=== PATIENT | male | born 1970 | race Caucasian/White ===

== ENCOUNTER 2017-04-29 15:43 | Inpatient (IN) | payer OTHER ==
[~2017-04-29] VITALS: Ht 190.5 cm; Wt 100.0 kg
[2017-04-29 15:44] VITALS: BP 130/84; PULSE 126; RESP 20; TEMP 100.7; O2SAT 97
--- NOTE | 2017-04-29 16:06 | PD ---
HPI . right foot infection Chief Complaint: Skin Problem Time Seen by Provider: 16:06 Travel History International Travel<30 days: No Contact w/Intl Traveler<30days: No Traveled to known affect area: No History of Present Illness HPI 46-year-old male with history of diabetes, hypertension, hyperlipidemia, CAD, history of heart attack in 2010 with CABG and 4 bouts of osteomyelitis in the past here with complaints of worsening foot infection. Patient tells me that he has had frequent bouts of osteomyelitis most recently December 2016. He says that all of a sudden yesterday he had a wound on his right lateral foot that developed. He tells me that this is new and has not been ongoing. Also has a chronic right foot wound that he has been following up with his primary care provider who is Dr. Whalen in [place]. There is a wound on his right lateral foot distally that measures 3 cm x 4 cm with drainage and foul odor. There is also a wound in the mid foot measuring 3 x 1.5 cm. Patient recently moved here 5 weeks ago and has been trying to resume his care. He admits to a fever today, but denies any chills. He has no other complaints. He is accompanied by his significant other. PFSH Past Medical History Cardiovascular Problems: Yes High Cholesterol: Yes Diabetes: Yes Hypertension: Yes Social History Alcohol Use: No Tobacco Use: No Substance Use: No Allergies-Medications (Allergen,Severity, Reaction): Coded Allergies: No Known Allergies (Unverified , 04/29/17) Reported Meds & Prescriptions Reported Meds & Active Scripts Active Reported Oxycodone (Oxycodone HCl) 10 Mg Tab 10 Mg PO Q6H PRN Multi Vitamin Daily (Multiple Vitamin) 1 Tab Tab 1 Tab PO DAILY Fish Oil 1000 mg ([place]-3 Fatty Acids) 1 Cap Cap 1,000 Mg PO DAILY Gabapentin 300 Mg Cap 600 Mg PO 2-3 TIMES A DAY Fluoxetine (Fluoxetine HCl) 40 Mg Cap 40 Cap PO DAILY Metoprolol Tartrate 25 Mg Tab 25 Mg PO BID Pravastatin 40 Mg Tab 40 Mg PO DAILY Lisinopril 2.5 Mg Tab 2.5 Mg PO DAILY Apidra Inj (Insulin Glulisine Inj) 1,000 Unit/10 Ml Vial 10 Units SQ DIRECTED SLIDING SCALE Lantus Inj (Insulin Glargine) 100 Unit/Ml Inj 45 Units SQ DAILY Metformin (Metformin HCl) 1,000 Mg Tab 1,000 Mg PO BID With meals Aspirin Adult Low Strength (Aspirin) 81 Mg Tabdr 81 Mg PO DAILY Review of Systems General / Constitutional: No: Fever Eyes: No: Visual changes HENT: No: Headaches Cardiovascular: No: Chest Pain or Discomfort Respiratory: No: Shortness of Breath Gastrointestinal: No: Abdominal Pain Genitourinary: No: Dysuria Musculoskeletal: No: Pain Skin: Positive Other (right foot wound ), No Rash Neurologic: No: Weakness Psychiatric: No: Depression Endocrine: No: Polydipsia Hematologic/Lymphatic: No: Easy Bruising Physical Exam Narrative GENERAL: AAO x 3, no acute distress, Well-nourished, well-developed patient. SKIN: Warm and dry. No visible rashes or bruising. right lateral foot distally 3 x 4 cm well circumscribed wound with + purulence, foul odor, mid foot with 3 cm x 1.5 cm wound healing, without drainage HEAD: Normocephalic and atraumatic. EYES: No scleral icterus. No injection or drainage. EOM intact, PERRLA ENT: No nasal drainage noted. Mucous membranes pink. Airway patent. NECK: Supple, trachea midline. No JVD. CARDIOVASCULAR: Regular rate and rhythm without murmurs, gallops, or rubs. RESPIRATORY: Breath sounds equal bilaterally. No accessory muscle use. No rhonchi or rales. GASTROINTESTINAL: Abdomen soft, non-tender, nondistended. EXTREMITIES: No cyanosis. Right LE + edema +1, tender to touch, left leg WNL, BACK: Nontender without obvious deformity. No CVA tenderness. 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 Data Data Last Documented VS Vital Signs Date Time Temp Pulse Resp B/P Pulse Ox O2 Delivery O2 Flow Rate FiO2 04/29/17 17:12 111 16 125/78 96 Room Air 04/29/17 15:44 100.7 Orders Electrocardiogram (04/29/17 16:13) Complete Blood Count With Diff (04/29/17 16:13) Comprehensive Metabolic Panel (04/29/17 16:13) Lactic Acid Sepsis Protocol (04/29/17 16:13) Urinalysis - C+S If Indicated (04/29/17 16:13) Blood Culture (04/29/17 16:13) Chest, Single Ap (04/29/17 16:13) Blood Glucose (04/29/17 16:13) Ecg Monitoring (04/29/17 16:13) Iv Access Insert/Monitor (04/29/17 16:13) Oximetry (04/29/17 16:13) Oxygen Administration (04/29/17 16:13) Foot, Complete ([id number]) (04/29/17 16:13) Us Leg Venous Doppler (04/29/17 16:13) Sodium Chlor 0.9% 1000 Ml Inj (Ns 1000 M (04/29/17 18:15) Insulin Human Nph Inj (Novolin N Inj) (04/29/17 18:30) Vancomycin Inj (Vancomycin Inj) (04/29/17 19:00) Piperacil-Tazo 3.375 Gm Premix (Zosyn 3. (04/29/17 19:00) Admit Order (Ed Use Only) (04/29/17 19:36) Labs Laboratory Tests Test 04/29/17 04/29/17 16:48 16:50 White Blood Count 15.7 TH/MM3 Red Blood Count 5.13 MIL/MM3 Hemoglobin 14.4 GM/DL Hematocrit 42.9 % Mean Corpuscular Volume 83.6 FL Mean Corpuscular Hemoglobin 28.1 PG Mean Corpuscular Hemoglobin 33.6 % Concent Red Cell Distribution Width 14.2 % Platelet Count 377 TH/MM3 Mean Platelet Volume 9.0 FL Neutrophils (%) (Auto) 82.8 % Lymphocytes (%) (Auto) 8.3 % Monocytes (%) (Auto) 7.5 % Eosinophils (%) (Auto) 1.0 % Basophils (%) (Auto) 0.4 % Neutrophils # (Auto) 13.0 TH/MM3 Lymphocytes # (Auto) 1.3 TH/MM3 Monocytes # (Auto) 1.2 TH/MM3 Eosinophils # (Auto) 0.2 TH/MM3 Basophils # (Auto) 0.1 TH/MM3 CBC Comment DIFF FINAL Differential Comment Sodium Level 132 MEQ/L Potassium Level 3.8 MEQ/L Chloride Level 97 MEQ/L Carbon Dioxide Level 26.1 MEQ/L Anion Gap 9 MEQ/L Blood Urea Nitrogen 16 MG/DL Creatinine 1.36 MG/DL Estimat Glomerular Filtration 56 ML/MIN Rate Random Glucose 417 MG/DL Lactic Acid Level 2.8 mmol/L Calcium Level 9.7 MG/DL Total Bilirubin 0.4 MG/DL Aspartate Amino Transf 13 U/L (AST/SGOT) Alanine Aminotransferase 16 U/L (ALT/SGPT) Alkaline Phosphatase 198 U/L Total Protein 9.2 GM/DL Albumin 3.7 GM/DL Urine Color YELLOW Urine Turbidity CLEAR Urine pH 6.0 Urine Specific [place] 1.035 Urine Protein TRACE mg/dL Urine Glucose (UA) 1000 mg/dL Urine Ketones NEG mg/dL Urine Occult Blood NEG Urine Nitrite NEG Urine Bilirubin NEG Urine Urobilinogen 2.0 MG/DL Urine Leukocyte Esterase NEG Urine RBC 2 /hpf Urine WBC LESS THAN 1 /hpf Urine Mucus FEW /lpf Microscopic Urinalysis Comment CULT NOT INDICATED MDM Medical Decision Making Medical Screen Exam Complete: Yes Emergency Medical Condition: Yes Medical Record Reviewed: Yes Differential Diagnosis diabetic foot ulcer, osteomyelitis, sepsis, DM Narrative Course 46-year-old male here with complaints of right foot wound. Patient does have a history of repeat bouts of osteomyelitis. Based on physical examination alone this patient will be admitted. Labs and x-rays have been ordered. Sepsis workup initiated. Last Impressions Lower Extremity Ultrasound 04/29/171612 Signed Impressions: Service Date/Time: Saturday, April 29, 2017 18:11 - CONCLUSION: 1. No DVT. 2. Right groin adenopathy. Jerod Velasquez Jr., MD Foot X-Ray 04/29/171612 Signed Impressions: Service Date/Time: Saturday, April 29, 2017 17:00 - CONCLUSION: 1. Post surgical changes with possible osteomyelitis involving the distal third and fourth metatarsals. [place] MD Chest X-Ray 04/29/171612 Signed Impressions: Service Date/Time: Saturday, April 29, 2017 17:07 - CONCLUSION: 1. No acute cardiopulmonary disease. Ramiro Dan MD Laboratory Tests Test 04/29/17 04/29/17 16:48 16:50 White Blood Count 15.7 TH/MM3 Red Blood Count 5.13 MIL/MM3 Hemoglobin 14.4 GM/DL Hematocrit 42.9 % Mean Corpuscular Volume 83.6 FL Mean Corpuscular Hemoglobin 28.1 PG Mean Corpuscular Hemoglobin 33.6 % Concent Red Cell Distribution Width 14.2 % Platelet Count 377 TH/MM3 Mean Platelet Volume 9.0 FL Neutrophils (%) (Auto) 82.8 % Lymphocytes (%) (Auto) 8.3 % Monocytes (%) (Auto) 7.5 % Eosinophils (%) (Auto) 1.0 % Basophils (%) (Auto) 0.4 % Neutrophils # (Auto) 13.0 TH/MM3 Lymphocytes # (Auto) 1.3 TH/MM3 Monocytes # (Auto) 1.2 TH/MM3 Eosinophils # (Auto) 0.2 TH/MM3 Basophils # (Auto) 0.1 TH/MM3 CBC Comment DIFF FINAL Differential Comment Sodium Level 132 MEQ/L Potassium Level 3.8 MEQ/L Chloride Level 97 MEQ/L Carbon Dioxide Level 26.1 MEQ/L Anion Gap 9 MEQ/L Blood Urea Nitrogen 16 MG/DL Creatinine 1.36 MG/DL Estimat Glomerular Filtration 56 ML/MIN Rate Random Glucose 417 MG/DL Lactic Acid Level 2.8 mmol/L Calcium Level 9.7 MG/DL Total Bilirubin 0.4 MG/DL Aspartate Amino Transf 13 U/L (AST/SGOT) Alanine Aminotransferase 16 U/L (ALT/SGPT) Alkaline Phosphatase 198 U/L Total Protein 9.2 GM/DL Albumin 3.7 GM/DL Urine Color YELLOW Urine Turbidity CLEAR Urine pH 6.0 Urine Specific [place] 1.035 Urine Protein TRACE mg/dL Urine Glucose (UA) 1000 mg/dL Urine Ketones NEG mg/dL Urine Occult Blood NEG Urine Nitrite NEG Urine Bilirubin NEG Urine Urobilinogen 2.0 MG/DL Urine Leukocyte Esterase NEG Urine RBC 2 /hpf Urine WBC LESS THAN 1 /hpf Urine Mucus FEW /lpf Microscopic Urinalysis Comment CULT NOT INDICATED Based off of laboratory findings patient meets criteria of sepsis. Lactic acid is elevated. White count is elevated. Patient is tachycardic and febrile. X-ray demonstrates possible osteomyelitis of the third and fourth digit of the right foot. Patient's blood sugar was elevated and he was given insulin here in ED. I have also provided vanco and zosyn. Discussed the case with Dr. Vergara, who is in agreement with admission. I discussed the case with Dr. Romo, who accepted patient for admission. I discussed with patient and he was in agreement with treatment plan. He thanked me for his care. Diagnosis Primary Impression: Sepsis Qualified Code: A41.9 - Sepsis, due to unspecified organism Additional Impression: Osteomyelitis Qualified Code: M86.9 - Osteomyelitis of right foot, unspecified type Admitting Information Admitting Physician Requests: Admit Condition: Stable Shayla Wallace Apr 29, 2017 16:06
[2017-04-29 17:12] VITALS: BP 125/78; PULSE 111; RESP 16; O2SAT 96
[2017-04-29 17:16] LABS: BASOPHIL # 0.1 TH/MM3 (0-0.2); BASOPHIL % 0.4 % (0.0-2.0); EOSINOPHIL # 0.2 TH/MM3 (0-0.4); HEMATOCRIT 42.9 % (39.0-51.0); HEMO FLAGS DIFF FINAL; LYMPH % 8.3 % (9.0-44.0); LYMPHOCYTE # 1.3 TH/MM3 (1.0-4.8); MEAN CELL VOLUME 83.6 FL (80.0-100.0); MEAN CORPUSCULAR HEMOGLOBIN 28.1 PG (27.0-34.0); MEAN CORPUSCULAR HGB CONC 33.6 % (32.0-36.0); MONO % 7.5 % (0.0-8.0); NEUT % 82.8 % (16.0-70.0); PLATELET COUNT 377 TH/MM3 (150-450); RED BLOOD COUNT 5.13 MIL/MM3 (4.50-5.90); RED CELL DISTRIBUTION WIDTH 14.2 % (11.6-17.2); WHITE BLOOD COUNT 15.7 TH/MM3 (4.0-11.0)
[2017-04-29 17:21] LABS: BLOOD, URINE NEG (NEG); COMMENT (UR) CULT NOT INDICATED; CULTURE IF INDICATED CULT NOT INDICATED; GLUCOSE,URINE 1000 mg/dL (NEG); KETONE, URINE NEG (NEG); MUCUS URINE FEW /lpf (OCC); NITRITE,URINE NEG (NEG); URINE COLOR YELLOW (YELLW/STRAW)
--- NOTE | 2017-04-29 17:25 | RADRPT ---
EXAM DATE/TIME: 04/29/2017 17:00 [facility] COMPARISON: No previous studies available for comparison. INDICATIONS : Diabetic right foot, opens wounds MEDICAL HISTORY : Diabetes mellitus type II. Cardiovascular disease. SURGICAL HISTORY : Multiple procedures to right foot ENCOUNTER: Initial ACUITY: 1 day PAIN SCORE: 7/10 LOCATION: Right foot FINDINGS: The examination demonstrates what appear be prior surgical osteotomies of the distal third and fourth metatarsals. There is rarefaction of bone and cortical irregularity seen suggesting possible osteomy elitis. The remainder the bony structures are grossly intact CONCLUSION: 1. Post surgical changes with possible osteomyelitis involving the distal third and fourth metatarsal s. [place] MD on April 29, 2017 at 17:21 Board Certified Radiologist. This report was verified electronically.
--- NOTE | 2017-04-29 17:28 | RADRPT ---
EXAM DATE/TIME: 04/29/2017 17:07 [facility] COMPARISON: No previous studies available for comparison. INDICATIONS : Pre-op right foot, evaluate for pneumonia MEDICAL HISTORY : Cardiovascular disease. SURGICAL HISTORY : CABG. Stents ENCOUNTER: Initial ACUITY: 1 day PAIN SCORE: 0/10 LOCATION: Bilateral chest FINDINGS: A single view of the chest demonstrates the lungs to be symmetrically aerated without evidence of mas s, infiltrate or effusion. Mild elevation of the left hemidiaphragm. Median sternotomy wires. The car diomediastinal contours are unremarkable. Osseous structures are intact. CONCLUSION: 1. No acute cardiopulmonary disease. Ramiro Dan MD on April 29, 2017 at 17:26 Board Certified Radiologist. This report was verified electronically.
[2017-04-29 17:51] LABS: ALKALINE PHOSPHATASE 198 U/L (45-117); ALT (GPT) 16 U/L (12-78); ANION GAP 9 MEQ/L (5-15); AST (GOT) 13 U/L (15-37); BICARBONATE 26.1 MEQ/L (21.0-32.0); BLOOD UREA NITROGEN 16 MG/DL (7-18); CHLORIDE 97 MEQ/L (98-107); GLOMERULAR FILTRATION RATE 56 ML/MIN (>89); POTASSIUM 3.8 MEQ/L (3.5-5.1); SODIUM (NA) 132 MEQ/L (136-145); TOTAL BILIRUBIN ADULT 0.4 MG/DL (0.2-1.0)
[2017-04-29] MEDS ORDERED: SODIUM CHLOR 0.9% 1000 ML INJ 1,000 ML IV ONE (18:15)
[2017-04-29] MEDS ORDERED: INSULIN HUMAN NPH 1,000 UNITS/10 ML VIAL SQ ONE (18:30)
[2017-04-29] MEDS ORDERED: VANCOMYCIN INJ 1,000 MG in SODIUM CHLOR 0.9% 250 ML INJ 250 ML IV ONE (19:00)
[2017-04-29] MEDS ORDERED: PIPERACIL-TAZO 3.375 GM PREMIX 50 ML IV ONE (19:00)
[2017-04-29 19:05] LABS: LACTIC ACID GHOST NOT REPORTABLE
[2017-04-29] MEDS ORDERED: GABA300C5 PO (19:14)
[2017-04-29] MEDS ORDERED: LANTUS2P SQ (19:14)
[2017-04-29] MEDS ORDERED: METF1000 PO (19:14)
[2017-04-29] MEDS ORDERED: METO25TA3 PO (19:14)
[2017-04-29] MEDS ORDERED: FLUO40CA PO (19:14)
[2017-04-29] MEDS ORDERED: OXYC-395 PO (19:14)
[2017-04-29] MEDS ORDERED: FISH100020 PO (19:14)
[2017-04-29] MEDS ORDERED: LISI2.5T3 PO (19:14)
[2017-04-29] MEDS ORDERED: ASPI1TAB91 PO (19:14)
[2017-04-29] MEDS ORDERED: PRAV40TA2 PO (19:14)
[2017-04-29] MEDS ORDERED: APIDINJ SQ (19:14)
[2017-04-29] MEDS ORDERED: MULT1TAB46 PO (19:14)
--- NOTE | 2017-04-29 19:21 | RADRPT ---
EXAM DATE/TIME: 04/29/2017 18:11 [facility] COMPARISON: No previous studies available for comparison. INDICATIONS : Right leg swelling and pain. MEDICAL HISTORY : Diabetes. Diabetic ulcers. SURGICAL HISTORY : None. ENCOUNTER: Initial ACUITY: >1 year PAIN SCORE: 6/10 LOCATION: Right leg. TECHNIQUE: Venous ultrasound of the leg was performed from the inguinal ligament to the proximal calf. Real-jyothi e, color Doppler and spectral tracing, compression and augmentation techniques were used. FINDINGS: There is normal compressibility of the deep venous system from the inguinal region to the proximal ca lf. No echogenic clot is seen in the lumen of the common femoral, femoral, popliteal, and posterior tibial veins. There is a normal response of the venous system to proximal and distal augmentation an d respiration. Several enlarged lymph nodes are seen involving the right groin. The largest measures 4 cm. CONCLUSION: 1. No DVT. 2. Right groin adenopathy. Jerod Velasquez Jr., MD on April 29, 2017 at 19:17 Board Certified Radiologist. This report was verified electronically.
[2017-04-29 19:52] VITALS: BP 117/64; PULSE 86; RESP 15; O2SAT 96
--- NOTE | 2017-04-29 19:59 | HHI.HP ---
HPI [facility] Physician Non-Staff Admission Diagnosis Sepsis/Osteomyelitis right foot Diagnoses: (1) Sepsis Diagnosis: Principal (2) Osteomyelitis Diagnosis: Principal (3) Renal insufficiency Diagnosis: Principal (4) HTN (hypertension) Diagnosis: Principal (5) DM (diabetes mellitus) Diagnosis: Principal Travel History International Travel<30 Days: No Contact w/Intl Traveler <30 Da: No Traveled to Known Affected Are: No History of Present Illness This is a 46-year-old male with a PMH of HTN, Peripheral Neuropathy, DM and h/o Right Foot Osteomyelitis who was referred to the ER by PCP for further eval of right foot infection. Per patient, he developed lesion on dorsum of right foot in Dec 2016 and was diagnosed w/ Osteomyelitis in [place], s/p treatment w/ antibiotics and moved to [facility] shortly afterwards. Two months ago, developed new lesion to lateral aspect of right foot. Did not seek medical attention as he had no PCP until 2 days ago at which time was seen by Dr. Valle. Per patient, right foot swelling/erythema new since yesterday. Reports subjective fever/chills today. On arrival, BP 130/84, HR 126, O2 sat 97 % on RA, Temp 100.7. WBC 15.7. Creatinine 1.36, no previous labs for comparison. BS 417. Lactic Acid 2.8. UA negative. CXR with no acute findings. Foot X-ray with postsurgical changes, possible osteomyelitis involving distal third and fourth metatarsals. LE Doppler w/ no DVT. S/p Blood Cultures, Vanc/Zosyn in ER. Review of Systems Except as stated in HPI: all other systems reviewed are Neg ROS: 14 point review of systems otherwise negative. Past Family Social History Past Medical History PMH: HTN, Peripheral Neuropathy, DM and h/o Right Foot Osteomyelitis Past Surgical History PAST SURGICAL HISTORY: None Allergies: Coded Allergies: No Known Allergies (Unverified , 04/29/17) Family History PAST FAMILY HISTORY: Reviewed, positive for DM. Social History PAST SOCIAL HISTORY: Negative for alcohol, tobacco or drugs. Physical Exam Vital Signs Vital Signs Date Time Temp Pulse Resp B/P Pulse Ox O2 Delivery O2 Flow Rate FiO2 04/29/17 17:12 111 16 125/78 96 Room Air 04/29/17 17:12 97 Room Air 04/29/17 15:44 100.7 126 20 130/84 97 Room Air Physical Exam PE: GENERAL: Pleasant middle-aged white male in no acute distress. HEENT: PERRLA, EOMI. No scleral icterus or conjunctival pallor. No lid lag or facial droop. CARDIOVASCULAR: Regular rate and rhythm. No obvious murmurs to auscultation. No chest tenderness to palpation. RESPIRATORY: No obvious rhonchi or wheezing. Clear to auscultation. Breath sounds equal bilaterally. GASTROINTESTINAL: Abdomen soft, non-tender, nondistended. BS normal. MUSCULOSKELETAL: Right foot w/ swelling/erythema to dorsum, old wound to mid- foot healed, no drainage. Wound to right lateral foot w/ purulent drainage, areas of necrosis. NEUROLOGICAL: Awake, alert and oriented x4. No focal neurologic deficits. Moving both upper and lower extremities spontaneously. Laboratory Laboratory Tests Test 04/29/17 04/29/17 16:48 16:50 White Blood Count 15.7 Red Blood Count 5.13 Hemoglobin 14.4 Hematocrit 42.9 Mean Corpuscular Volume 83.6 Mean Corpuscular Hemoglobin 28.1 Mean Corpuscular Hemoglobin 33.6 Concent Red Cell Distribution Width 14.2 Platelet Count 377 Mean Platelet Volume 9.0 Neutrophils (%) (Auto) 82.8 Lymphocytes (%) (Auto) 8.3 Monocytes (%) (Auto) 7.5 Eosinophils (%) (Auto) 1.0 Basophils (%) (Auto) 0.4 Neutrophils # (Auto) 13.0 Lymphocytes # (Auto) 1.3 Monocytes # (Auto) 1.2 Eosinophils # (Auto) 0.2 Basophils # (Auto) 0.1 CBC Comment DIFF FINAL Differential Comment Sodium Level 132 Potassium Level 3.8 Chloride Level 97 Carbon Dioxide Level 26.1 Anion Gap 9 Blood Urea Nitrogen 16 Creatinine 1.36 Estimat Glomerular Filtration 56 Rate Random Glucose 417 Lactic Acid Level 2.8 Calcium Level 9.7 Total Bilirubin 0.4 Aspartate Amino Transf 13 (AST/SGOT) Alanine Aminotransferase 16 (ALT/SGPT) Alkaline Phosphatase 198 Total Protein 9.2 Albumin 3.7 Urine Color YELLOW Urine Turbidity CLEAR Urine pH 6.0 Urine Specific [place] 1.035 Urine Protein TRACE Urine Glucose (UA) 1000 Urine Ketones NEG Urine Occult Blood NEG Urine Nitrite NEG Urine Bilirubin NEG Urine Urobilinogen 2.0 Urine Leukocyte Esterase NEG Urine RBC 2 Urine WBC LESS THAN 1 Urine Mucus FEW Microscopic Urinalysis Comment CULT NOT INDICATED Date/Time Procedure Status Source Growth 04/29/17 17:00 Aerobic Blood Culture Received Blood Peripheral Pending 04/29/17 17:00 Anaerobic Blood Culture Received Blood Peripheral Pending Result Diagram: 04/29/17 1648 04/29/17 1648 Assessment and Plan Problem List: (1) Sepsis ICD Code: A41.9 Status: Acute (2) Osteomyelitis ICD Code: M86.9 Status: Acute (3) HTN (hypertension) ICD Code: I10 Status: Acute (4) Renal insufficiency ICD Code: N28.9 Status: Acute (5) DM (diabetes mellitus) ICD Code: E11.9 Status: Acute Assessment and Plan A/P: 1. Sepsis: Temp 100.7, HR 126, WBC 15.7, Lactic Acid 2.8. Source-right foot infection. S/p Blood Cultures, Vanc/Zosyn in ER. Will follow up cultures, continue w/ IV Abx. Repeat Lactate now normalized at 1.2. CXR w/ no acute findings, images reviewed by me. 2. Osteomyelitis: Right Foot Infection x2 months, now w/ worsening erythema/ edema. H/o Osteomyelitis 12/2016. Foot X-ray w/ postsurgical changes, possible osteomyelitis involving distal third and fourth metatarsals, images reviewed by me. Doppler LE negative for DVT. Continue w/ IV Abx as above. Consult Podiatry for further eval. 2. Renal Insufficiency: Creatinine 1.36, no previous labs for comparison. UA negative. IVF for hydration, repeat labs in a.m. 3. DM: Uncontrolled. Check Hgb A1c. Hold Metformin for now in light of renal insufficiency and sepsis. Sliding scale w/ Accu-Checks, resume home Lantus. 4. DVT Prophylaxis: Heparin sq 5. Social work for d/c planning as needed. 6. Case discussed w/ ER physician at length Physician Certification 2 Midnight Certification Type: Admission for Inpatient Services Order for Inpatient Services The services are ordered in accordance with Medicare regulations or non- Medicare payer requirements, as applicable. In the case of services not specified as inpatient-only, they are appropriately provided as inpatient services in accordance with the 2-midnight benchmark. Estimated LOS (days): 2 days is the estimated time the patient will need to remain in the hospital, assuming treatment plan goals are met and no additional complications. Post-Hospital Plan: Not yet determined Problem Qualifiers (1) Sepsis: Qualified Code: A41.9 - Sepsis, due to unspecified organism (2) Osteomyelitis: Qualified Code: M86.9 - Osteomyelitis of right foot, unspecified type Marlin Romo MD Apr 29, 2017 19:59
[2017-04-29] MEDS ORDERED: Vancomycin Consult Pharmacy 1 EA OTHER SCH (20:00)
[2017-04-29] MEDS ORDERED: BISACODYL 10 MG SUPP RECTAL PRN (20:00)
[2017-04-29] MEDS ORDERED: LACTULOSE SYRUP 20 GM/30 ML CUP PO PRN (20:00)
[2017-04-29] MEDS ORDERED: GLUCAGON 1 MG/ML VIAL OTHER PRN (20:00)
[2017-04-29] MEDS ORDERED: ONDANSETRON HCL 4 MG/2 ML VIAL IVP PRN (20:00)
[2017-04-29] MEDS ORDERED: SENNOSIDES 8.6 MG TAB PO PRN (20:00)
[2017-04-29] MEDS ORDERED: MAGNESIUM HYDROXIDE SUSP 30 ML CUP PO PRN (20:00)
[2017-04-29] MEDS ORDERED: SODIUM CHLORIDE 0.9% FLUSH 10 ML FLUSH IV FLUSH PRN (20:00)
[2017-04-29] MEDS ORDERED: DEXTROSE 50% IN WATER 50 ML VIAL(D50) IV PRN (20:00)
[2017-04-29] MEDS: DOCUSATE SODIUM 50 MG/SENNA 8.6 MG TAB PO SCH (21:00)
[2017-04-29] MEDS: INSULIN ASPART SUPPLEMENTAL SCALE SQ SCH (21:00)
[2017-04-29] MEDS: SODIUM CHLORIDE 0.9% FLUSH 10 ML FLUSH IV FLUSH SCH (21:00)
[2017-04-29 21:15] VITALS: BP 118/64; PULSE 81; RESP 20; TEMP 98.2; O2SAT 98
[2017-04-29 22:06] VITALS: PULSE 81
[2017-04-29] MEDS: MORPHINE SULFATE 4 MG/ML INJ IV PRN (22:44)
[2017-04-29] MEDS: SODIUM CHLOR 0.9% 1000 ML INJ 1,000 ML IV SCH (22:47)
[2017-04-29] MEDS ORDERED: VANCOMYCIN 500 MG/NS 100 ML IV ONE ×2 (23:00)
[2017-04-30 05:42] LABS: AUTOMATED NEUTROPHIL # 6.8 TH/MM3 (1.8-7.7); BASOPHIL # 0.1 TH/MM3 (0-0.2); EOSINOPHIL # 0.2 TH/MM3 (0-0.4); EOSINOPHIL % 2.2 % (0.0-4.0); HEMATOCRIT 35.6 % (39.0-51.0); HEMO FLAGS DIFF FINAL; LYMPH % 22.2 % (9.0-44.0); LYMPHOCYTE # 2.4 TH/MM3 (1.0-4.8); MEAN CELL VOLUME 82.8 FL (80.0-100.0); MEAN CORPUSCULAR HEMOGLOBIN 27.4 PG (27.0-34.0); MEAN CORPUSCULAR HGB CONC 33.1 % (32.0-36.0); MONO % 12.4 % (0.0-8.0); NEUT % 62.2 % (16.0-70.0); PLATELET COUNT 300 TH/MM3 (150-450); RED CELL DISTRIBUTION WIDTH 13.9 % (11.6-17.2)
[2017-04-30 06:22] LABS: ALKALINE PHOSPHATASE 111 U/L (45-117); ALT (GPT) 11 U/L (12-78); ANION GAP 8 MEQ/L (5-15); AST (GOT) 7 U/L (15-37); BICARBONATE 26.1 MEQ/L (21.0-32.0); BLOOD UREA NITROGEN 13 MG/DL (7-18); CHLORIDE 106 MEQ/L (98-107); GLOMERULAR FILTRATION RATE 142 ML/MIN (>89); POTASSIUM 3.5 MEQ/L (3.5-5.1); SODIUM (NA) 140 MEQ/L (136-145); TOTAL BILIRUBIN ADULT 0.3 MG/DL (0.2-1.0)
[2017-04-30] MEDS: SODIUM CHLOR 0.9% 1000 ML INJ 1,000 ML IV SCH ×2 (06:27→15:48)
[2017-04-30] MEDS: MORPHINE SULFATE 4 MG/ML INJ IV PRN ×2 (06:28→14:40)
[2017-04-30] MEDS: INSULIN ASPART SUPPLEMENTAL SCALE SQ SCH ×4 (06:30→21:28)
[2017-04-30 08:00] VITALS: BP 112/70; PULSE 67; RESP 18; TEMP 96.3; O2SAT 98
[2017-04-30] MEDS: DOCUSATE SODIUM 50 MG/SENNA 8.6 MG TAB PO SCH ×2 (09:00→21:00)
[2017-04-30] MEDS: SODIUM CHLORIDE 0.9% FLUSH 10 ML FLUSH IV FLUSH SCH ×2 (09:00→19:55)
--- NOTE | 2017-04-30 09:24 | HHI.PR ---
Subjective Remarks f/u; osteomyelitis in no acute distress. pain is controlled. T max 100.7. Objective Vitals Vital Signs Date Time Temp Pulse Resp B/P Pulse Ox O2 Delivery O2 Flow Rate FiO2 04/30/17 08:00 96.3 67 18 112/70 98 04/29/17 22:06 81 04/29/17 21:15 98.2 81 20 118/64 98 04/29/17 19:53 85 04/29/17 19:52 86 15 117/64 96 Room Air 04/29/17 17:12 111 16 125/78 96 Room Air 04/29/17 17:12 97 Room Air 04/29/17 15:44 100.7 126 20 130/84 97 Room Air I/O 04/29/17 04/29/17 04/29/17 04/30/17 04/30/17 04/30/17 07:00 15:00 23:00 07:00 15:00 23:00 Intake Total 474 ml 800 ml Balance 474 ml 800 ml Intake Oral 474 ml IV Total 800 ml Result Diagram: 04/30/17 0455 04/30/17 0455 Imaging Last Impressions Lower Extremity Ultrasound 04/29/171612 Signed Impressions: Service Date/Time: Saturday, April 29, 2017 18:11 - CONCLUSION: 1. No DVT. 2. Right groin adenopathy. Jerod Velasquez Jr., MD Foot X-Ray 04/29/171612 Signed Impressions: Service Date/Time: Saturday, April 29, 2017 17:00 - CONCLUSION: 1. Post surgical changes with possible osteomyelitis involving the distal third and fourth metatarsals. [place] MD Chest X-Ray 04/29/171612 Signed Impressions: Service Date/Time: Saturday, April 29, 2017 17:07 - CONCLUSION: 1. No acute cardiopulmonary disease. Ramiro Dan MD Objective Remarks GENERAL: This is a well-nourished, well-developed patient, in no apparent distress. CARDIOVASCULAR: Regular rate and regular rhythm without murmurs, gallops, or rubs. RESPIRATORY: Clear to auscultation. Breath sounds equal bilaterally. No wheezes , rales, or rhonchi. GASTROINTESTINAL: Abdomen soft, non-tender, nondistended. Normal, active bowel sounds MUSCULOSKELETAL: Extremities without clubbing, cyanosis, or edema. NEURO: Alert & Oriented x4 to person, place, time, situation. Moves all ext x4 skin; foul-smelling wound noted on the lateral aspect of the right foot and healed wound on right midfoot Procedures none Medications and IVs Current Medications Sodium Chloride (NS 1000 ml Inj) 1,000 ml @ 999 mls/hr BOLUS ONCE IV Last administered on 04/29/17 18:51; Start 04/29/17 at 18:15; Stop 04/29/17 at 19:15 ; Status DC Insulin Human NPH 10 units 10 units ONCE ONCE SQ Last administered on 18:50; Start 04/29/17 at 18:30; Stop 04/29/17 at 18:31; Status DC Vancomycin HCl 1000 mg/Sodium Chloride 250 ml @ 250 mls/hr ONCE ONCE IV Last administered on 04/29/17 20:32; Start 04/29/17 at 19:00; Stop 04/29/17 at 19:59 ; Status DC Piperacillin Sod/ Tazobactam Sod (Zosyn 3.375 Gm Premix) 50 ml @ 100 mls/hr ONCE ONCE IV Last administered on 04/29/17 19:59; Start 04/29/17 at 19:00; Stop 04/29/17 at 19:29; Status DC Dextrose (D50w (Vial) Inj) 50 ml UNSCH PRN IV HYPOGLYCEMIA-SEE COMMENTS; Start 04/29/17 at 20:00 Glucagon (Glucagon Inj) 1 mg UNSCH PRN OTHER HYPOGLYCEMIA-SEE COMMENTS; Start 04/29/17 at 20:00 Insulin Aspart 1 1 ACHS SLIDING SCALE SQ Last administered on 04/30/17 06:30 ; Start 04/29/17 at 21:00 Pharmacy Profile Note 0 ml @ 0 mls/hr UNSCH OTHER ; Start 04/29/17 at 20:00 Cefepime HCl 1000 mg/Sodium Chloride 100 ml @ 200 mls/hr Q12H IV ; Start at 09:00 Sodium Chloride (NS 1000 ml Inj) 1,000 ml @ 100 mls/hr Q10H IV Last administered on 04/30/17 06:27; Start 04/29/17 at 19:48 Sodium Chloride (NS Flush) 2 ml UNSCH PRN IV FLUSH FLUSH AFTER USING IV ACCESS ; Start 04/29/17 at 20:00 Sodium Chloride (NS Flush) 2 ml BID IV FLUSH ; Start 04/29/17 at 21:00 Ondansetron HCl (Zofran Inj) 4 mg Q6H PRN IVP NAUSEA OR VOMITING Last administered on 04/29/17 22:44; Start 04/29/17 at 20:00 Acetaminophen (Tylenol) 650 mg Q6H PRN PO FEVER/PAIN SCALE 1 TO 2; Start at 20:00 Acetaminophen/ Hydrocodone Bitart ([place] 5-325 Mg) 1 tab Q4H PRN PO PAIN SCALE 3 TO 5; Start 04/29/17 at 20:00 Morphine Sulfate (Morphine Inj) 2 mg Q3H PRN IV Pain 6-10 Last administered on 04/30/17 06:28; Start 04/29/17 at 20:00 Senna/Docusate Sodium (Inessa-Colace) 1 tab BID PO ; Start 04/29/17 at 21:00 Magnesium Hydroxide (Milk Of Magnesia Liq) 30 ml Q12H PRN PO MILD - MODERATE CONSTIPATION; Start 04/29/17 at 20:00 Sennosides (Senokot) 17.2 mg Q12H PRN PO MODERATE - SEVERE CONSTIPATION; Start 04/29/17 at 20:00 Bisacodyl (Dulcolax Supp) 10 mg DAILY PRN RECTAL SEVERE CONSITIPATION; Start at 20:00 Lactulose (Lactulose Liq) 30 ml DAILY PRN PO SEVERE CONSITIPATION; Start at 20:00 Aspirin (Ecotrin Ec) 81 mg DAILY PO ; Start 04/30/17 at 09:00 Fluoxetine HCl (PROzac) 40 mg DAILY PO ; Start 04/30/17 at 09:00 Insulin Detemir (Levemir Inj) 45 units DAILY SQ ; Start 04/30/17 at 09:00 Pravastatin Sodium (Pravachol) 40 mg DAILY PO ; Start 04/30/17 at 09:00 Multivitamins (Theragran) 1 tab DAILY PO ; Start 04/30/17 at 09:00 Heparin Sodium (Porcine) 5000 units 5,000 units Q12HR SQ ; Start 04/30/17 at 09: 00 Vancomycin HCl/ Sodium Chloride (Vancomycin Inj/ NS Inj) 100 ml @ 200 mls/hr ONCE ONCE IV Last administered on 04/30/17t 00:05; Start 04/29/17 at 23:00; Stop 04/29/17 at 23:29; Status DC A/P Assessment and Plan A/P 1. Sepsis due to right foot infection/ possible osteomyelitis continue broad-spectrum IV antibiotics and pain control- will follow the cultures- podiatry consulted. 2. acute kidney injury- improved- will monitor. 3. DM: Uncontrolled. Hgb A1c pending. Hold Metformin for now in light of renal insufficiency and sepsis. Sliding scale w/ Accu-Checks, resume home Lantus. will monitor and adjust the insulin regimen as needed. 4. DVT Prophylaxis: Heparin sq Teja Cleveland MD Apr 30, 2017 09:24
[2017-04-30] MEDS: INSULIN DETEMIR 100 UNITS/ML VIAL SQ SCH (10:22)
[2017-04-30] MEDS: PRAVASTATIN SOD 40 MG TAB PO SCH (10:23)
[2017-04-30] MEDS: HEPARIN SODIUM - SQ 10,000 UNITS/ML VIAL SQ SCH ×2 (10:24→21:23)
[2017-04-30] MEDS: MULTIVITAMIN TAB PO SCH (10:24)
[2017-04-30] MEDS: FLUoxetine HCL 20 MG CAP PO SCH (10:24)
[2017-04-30] MEDS: CEFEPIME INJ 1,000 MG in SODIUM CHLORIDE 0.9% INJ 100 ML IV SCH ×2 (10:25→22:26)
[2017-04-30] MEDS: ASPIRIN EC 81 MG TABEC PO SCH (10:26)
[2017-04-30 12:00] VITALS: BP 105/60; PULSE 70; RESP 19; TEMP 97; O2SAT 98
--- NOTE | 2017-04-30 12:16 | EKG ---
Date Performed: 04/29/2017 Time Performed: 17:09:53 PTAGE: 46 years EKG: SINUS TACHYCARDIA ABNORMAL RHYTHM ECG NO PREVIOUS TRACING DOCTOR: Pradip Danielson Interpretating Date/Time 04/30/2017 12:13:14
[2017-04-30] MEDS: VANCOMYCIN 1,500 MG/NS 500 ML IV SCH ×4 (13:03→19:55)
[2017-04-30] MEDS ORDERED: CALCIUM CARBONATE 500 MG CHEWABLE TAB CHEW PRN (14:00)
[2017-04-30] MEDS: PANTOPRAZOLE SOD 40 MG DELAYED RELEASE TAB PO SCH (14:37)
[2017-04-30 16:00] VITALS: BP 127/67; PULSE 71; RESP 16; TEMP 97.1; O2SAT 97
[2017-04-30] MEDS: GABAPENTIN 300 MG CAP PO SCH (16:52)
[2017-04-30 20:00] VITALS: PULSE 87
[2017-04-30 20:08] VITALS: BP 127/67; PULSE 79; RESP 18; TEMP 99.8; O2SAT 98
--- NOTE | 2017-04-30 20:56 | MB ---
cc: LYSSA GARCIAM DATE OF CONSULTATION 04/30/2017 DATE OF 1970 REASON FOR CONSULTATION Right foot osteomyelitis. HISTORY OF PRESENT ILLNESS The patient is a 46-year-old male with past medical history of hypertension, peripheral neuropathy, DM, right foot osteomyelitis. The patient was referred to the ED by his PCP. Per the patient he developed a wound on the right foot in December 2016, was diagnosed with osteomyelitis in [place] and underwent partial amputation with antibiotics. He moved to [facility] shortly afterwards. Two months ago he developed a lesion on the outside of his foot but did not seek medical attention as he had no primary care until 2 days ago. He did have a prescription for Augmentin from [place] which he did not take per his records. Presents with right foot swelling, edema. REVIEW OF SYSTEMS Six point review of systems unremarkable. PAST MEDICAL HISTORY Per HPI. PAST SURGICAL HISTORY Right third and fourth metatarsal partial metatarsal amputation. ALLERGIES NKDA. FAMILY HISTORY Noncontributory. SOCIAL HISTORY Denies alcohol, tobacco or illicit drugs. PHYSICAL EXAMINATION DIRECTED EXAMINATION: The right foot with DP and PT +1/4. There is some swelling on the right dorsal foot. There is some mild erythema. There is no streaking. There is an open wound to the right lateral fifth metatarsal head which was approximately 3 x 4 cm, ___ fibrotic, no active drainage. The metatarsal head on the lateral side is palpable but is still covered by the capsule of the joint. Sub third and fourth metatarsal there is an ulceration which does not probe to bone. Protective sensation is grossly absent. LABORATORY DATA WBC on 04/30/2017 11.0, RBC of 4.3, H&H of 11.8 and 35.6 respectively. IMAGING STUDIES Right foot x-rays three views completed on 04/29/2017 indicate postsurgical changes with possible osteomyelitis involving the distal third and fourth metatarsal heads. This was evaluated. Lower extremity ultrasound on the right leg completed 04/29/2017 no DVT noted. ASSESSMENT 1. DM with neuropathy. 2. Right foot cellulitis. 3. Rule out right foot osteomyelitis. PLAN 1. The plan for this patient is to order blood flow study. 2. [facility] white blood cell label scan. This is to identify and localize the areas of osteomyelitis that do exist. Given his recent surgical intervention I think this would be a better test compared to an MRI. I did discuss with the patient the risks involving osteomyelitis not limited to a transmetatarsal amputation. The patient will be followed appropriately while in-house. He is currently pending a right Ceretec scan. He will continue IV antibiotics. An order for Betadine dressings daily was placed and will follow the patient appropriately while in-house. Lyssa Garcia DPM SR/AC /8:29 PM /8:40 PM
[2017-04-30] MEDS: ACETAMINOPHEN/HYDROcodone 325 MG/5 MG TAB PO PRN (21:23)
[2017-04-30 23:58] VITALS: BP 119/69; PULSE 70; RESP 20; TEMP 98.5; O2SAT 93
[2017-05-01] MEDS: SODIUM CHLOR 0.9% 1000 ML INJ 1,000 ML IV SCH ×2 (00:28→13:20)
[2017-05-01] MEDS: VANCOMYCIN 1,500 MG/NS 500 ML IV SCH ×6 (04:10→21:24)
[2017-05-01 04:12] VITALS: BP 112/71; PULSE 78; RESP 17; TEMP 98.9; O2SAT 98
[2017-05-01] MEDS: ACETAMINOPHEN/HYDROcodone 325 MG/5 MG TAB PO PRN ×4 (05:35→23:17)
[2017-05-01] MEDS: INSULIN ASPART SUPPLEMENTAL SCALE SQ SCH ×4 (06:11→21:32)
[2017-05-01 08:00] VITALS: BP 120/66; PULSE 68; RESP 17; TEMP 97.4; O2SAT 96
[2017-05-01] MEDS: GABAPENTIN 300 MG CAP PO SCH ×3 (08:39→18:17)
[2017-05-01] MEDS: PANTOPRAZOLE SOD 40 MG DELAYED RELEASE TAB PO SCH (08:39)
[2017-05-01] MEDS: MULTIVITAMIN TAB PO SCH (08:39)
[2017-05-01] MEDS: PRAVASTATIN SOD 40 MG TAB PO SCH (08:39)
[2017-05-01] MEDS: FLUoxetine HCL 20 MG CAP PO SCH (08:39)
[2017-05-01] MEDS: ASPIRIN EC 81 MG TABEC PO SCH (08:39)
[2017-05-01] MEDS: CEFEPIME INJ 1,000 MG in SODIUM CHLORIDE 0.9% INJ 100 ML IV SCH ×2 (08:40→21:23)
[2017-05-01] MEDS: SODIUM CHLORIDE 0.9% FLUSH 10 ML FLUSH IV FLUSH SCH ×2 (08:40→21:23)
[2017-05-01] MEDS: DOCUSATE SODIUM 50 MG/SENNA 8.6 MG TAB PO SCH ×2 (08:40→21:00)
[2017-05-01] MEDS: HEPARIN SODIUM - SQ 10,000 UNITS/ML VIAL SQ SCH ×2 (08:41→21:24)
[2017-05-01] MEDS: INSULIN DETEMIR 100 UNITS/ML VIAL SQ SCH (08:41)
[2017-05-01 08:45] VITALS: PULSE 68
--- NOTE | 2017-05-01 09:28 | HHI.PR ---
Subjective Remarks f/u; osteomyelitis resting comfortably with no distress. no fever. pain is controlled. no new complaints. Objective Vitals Vital Signs Date Time Temp Pulse Resp B/P Pulse Ox O2 Delivery O2 Flow Rate FiO2 05/01/17 08:00 97.4 68 17 120/66 96 05/01/17 04:12 98.9 78 17 112/71 98 04/30/17 23:58 98.5 70 20 119/69 93 04/30/17 20:08 99.8 79 18 127/67 98 04/30/17 20:00 87 04/30/17 16:00 97.1 71 16 127/67 97 04/30/17 12:00 97.0 70 19 105/60 98 I/O 04/30/17 04/30/17 04/30/17 05/01/17 05/01/17 05/01/17 07:00 15:00 23:00 07:00 15:00 23:00 Intake Total 800 ml 1346 ml 480 ml 360 ml Balance 800 ml 1346 ml 480 ml 360 ml Intake Oral 540 ml 480 ml 360 ml IV Total 800 ml 806 ml # Voids 2 2 2 # Bowel Movements 1 Result Diagram: 04/30/17 0455 04/30/17 0455 Imaging Last Impressions Lower Extremity Ultrasound 04/29/171612 Signed Impressions: Service Date/Time: Saturday, April 29, 2017 18:11 - CONCLUSION: 1. No DVT. 2. Right groin adenopathy. Jerod Velasquez Jr., MD Foot X-Ray 04/29/171612 Signed Impressions: Service Date/Time: Saturday, April 29, 2017 17:00 - CONCLUSION: 1. Post surgical changes with possible osteomyelitis involving the distal third and fourth metatarsals. [place] MD Chest X-Ray 04/29/171612 Signed Impressions: Service Date/Time: Saturday, April 29, 2017 17:07 - CONCLUSION: 1. No acute cardiopulmonary disease. Ramiro Dan MD Objective Remarks GENERAL: This is a well-nourished, well-developed patient, in no apparent distress. CARDIOVASCULAR: Regular rate and regular rhythm without murmurs, gallops, or rubs. RESPIRATORY: Clear to auscultation. Breath sounds equal bilaterally. No wheezes , rales, or rhonchi. GASTROINTESTINAL: Abdomen soft, non-tender, nondistended. Normal, active bowel sounds MUSCULOSKELETAL: Extremities without clubbing, cyanosis, or edema. NEURO: Alert & Oriented x4 to person, place, time, situation. Moves all ext x4 skin; foul-smelling wound noted on the lateral aspect of the right foot and healed wound on right midfoot Procedures none Medications and IVs Current Medications Sodium Chloride (NS 1000 ml Inj) 1,000 ml @ 999 mls/hr BOLUS ONCE IV Last administered on 04/29/17 18:51; Start 04/29/17 at 18:15; Stop 04/29/17 at 19:15 ; Status DC Insulin Human NPH 10 units 10 units ONCE ONCE SQ Last administered on 18:50; Start 04/29/17 at 18:30; Stop 04/29/17 at 18:31; Status DC Vancomycin HCl 1000 mg/Sodium Chloride 250 ml @ 250 mls/hr ONCE ONCE IV Last administered on 04/29/17 20:32; Start 04/29/17 at 19:00; Stop 04/29/17 at 19:59 ; Status DC Piperacillin Sod/ Tazobactam Sod (Zosyn 3.375 Gm Premix) 50 ml @ 100 mls/hr ONCE ONCE IV Last administered on 04/29/17 19:59; Start 04/29/17 at 19:00; Stop 04/29/17 at 19:29; Status DC Dextrose (D50w (Vial) Inj) 50 ml UNSCH PRN IV HYPOGLYCEMIA-SEE COMMENTS; Start 04/29/17 at 20:00 Glucagon (Glucagon Inj) 1 mg UNSCH PRN OTHER HYPOGLYCEMIA-SEE COMMENTS; Start 04/29/17 at 20:00 Insulin Aspart 1 1 ACHS SLIDING SCALE SQ Last administered on 05/01/17 06:11 ; Start 04/29/17 at 21:00 Pharmacy Profile Note 0 ml @ 0 mls/hr UNSCH OTHER ; Start 04/29/17 at 20:00 Cefepime HCl 1000 mg/Sodium Chloride 100 ml @ 200 mls/hr Q12H IV Last administered on 05/01/17 08:40; Start 04/30/17 at 09:00 Sodium Chloride (NS 1000 ml Inj) 1,000 ml @ 100 mls/hr Q10H IV Last administered on 05/01/17 00:28; Start 04/29/17 at 19:48 Sodium Chloride (NS Flush) 2 ml UNSCH PRN IV FLUSH FLUSH AFTER USING IV ACCESS ; Start 04/29/17 at 20:00 Sodium Chloride (NS Flush) 2 ml BID IV FLUSH ; Start 04/29/17 at 21:00 Ondansetron HCl (Zofran Inj) 4 mg Q6H PRN IVP NAUSEA OR VOMITING Last administered on 04/29/17 22:44; Start 04/29/17 at 20:00 Acetaminophen (Tylenol) 650 mg Q6H PRN PO FEVER/PAIN SCALE 1 TO 2; Start at 20:00 Acetaminophen/ Hydrocodone Bitart ([place] 5-325 Mg) 1 tab Q4H PRN PO PAIN SCALE 3 TO 5 Last administered on 05/01/17 05:35; Start 04/29/17 at 20:00 Morphine Sulfate (Morphine Inj) 2 mg Q3H PRN IV Pain 6-10 Last administered on 04/30/17 14:40; Start 04/29/17 at 20:00 Senna/Docusate Sodium (Inessa-Colace) 1 tab BID PO ; Start 04/29/17 at 21:00 Magnesium Hydroxide (Milk Of Magnesia Liq) 30 ml Q12H PRN PO MILD - MODERATE CONSTIPATION; Start 04/29/17 at 20:00 Sennosides (Senokot) 17.2 mg Q12H PRN PO MODERATE - SEVERE CONSTIPATION; Start 04/29/17 at 20:00 Bisacodyl (Dulcolax Supp) 10 mg DAILY PRN RECTAL SEVERE CONSITIPATION; Start at 20:00 Lactulose (Lactulose Liq) 30 ml DAILY PRN PO SEVERE CONSITIPATION; Start at 20:00 Aspirin (Ecotrin Ec) 81 mg DAILY PO Last administered on 05/01/17 08:39; Start 04/30/17 at 09:00 Fluoxetine HCl (PROzac) 40 mg DAILY PO Last administered on 05/01/17 08:39; Start 04/30/17 at 09:00 Insulin Detemir (Levemir Inj) 45 units DAILY SQ Last administered on 05/01/17 08:41; Start 04/30/17 at 09:00 Pravastatin Sodium (Pravachol) 40 mg DAILY PO Last administered on 05/01/17 08 :39; Start 04/30/17 at 09:00 Multivitamins (Theragran) 1 tab DAILY PO Last administered on 05/01/17 08:39; Start 04/30/17 at 09:00 Heparin Sodium (Porcine) 5000 units 5,000 units Q12HR SQ Last administered on 08:41; Start 04/30/17 at 09:00 Vancomycin HCl 500 mg/Sodium Chloride 100 ml @ 200 mls/hr ONCE ONCE IV Last administered on 04/30/17 00:05; Start 04/29/17 at 23:00; Stop 04/29/17 at 23:29 ; Status DC Vancomycin HCl/ Sodium Chloride (Vancomycin Inj/ NS 500 ml Inj) 515 ml @ 257.5 mls/ hr Q8H IV Last administered on 05/01/17 04:10; Start 04/30/17 at 12:00 Miscellaneous Information SPECIFIC LAB TO BE DRAWN:VA... ONCE ONCE .XX ; Start 05/01/17 at 11:45; Stop 05/01/17 at 11:46 Pantoprazole Sodium (Protonix) 40 mg DAILY PO Last administered on 05/01/17 08 :39; Start 04/30/17 at 14:00 Calcium Carbonate (Tums Chew) 500 mg Q12HR PRN CHEW DYSPEPSIA Last administered on 04/30/17 14:37; Start 04/30/17 at 14:00 Gabapentin (Neurontin) 600 mg TID PO Last administered on 05/01/17 08:39; Start 04/30/17 at 18:00 A/P Assessment and Plan A/P 1. Sepsis due to right foot infection/ possible osteomyelitis continue broad-spectrum IV antibiotics and pain control- blood cultures negative so far. podiatry consult appreciated; plan for WBC scan today. 2. acute kidney injury- improved- will monitor. 3. DM: Uncontrolled. Hgb A1c pending. Hold Metformin for now in light of renal insufficiency and sepsis. Sliding scale w/ Accu-Checks, resumed home Lantus. will monitor and adjust the insulin regimen as needed. 4. DVT Prophylaxis: Heparin sq Teja Cleveland MD May 01, 2017 09:28
--- NOTE | 2017-05-01 10:19 | RADRPT ---
EXAM DATE/TIME: 04/30/2017 00:00 [facility] COMPARISON: No previous studies available for comparison. INDICATIONS : Sepsis,Osteo, Right little toe wound TECHNIQUE: Five-station segmental examination of the lower extremities was performed. Pulsed-cuff waveform tracings and pressures were recorded. Ankle-brachial indices and toe-brachial indices were calculated. PRESSURES (mmHg): Brachial (arm): Left 133 Lower Thigh: Right 175 Left 174 Calf: Right 172 Left 161 Ankle: Right 152 Left 162 Toe: Right 116 Left 167 AGUSTINA: Right 1.14 Left 1.22 TBI: Right 0.87 Left 1.26 PULSED CUFF WAVEFORMS: Demonstrate normal amplitude bilaterally. CONCLUSION: Unremarkable segmental evaluation of the lower extremities. Moshe Gracia MD on May 01, 2017 at 10:17 Board Certified Radiologist. This report was verified electronically.
[2017-05-01] MEDS ORDERED: PHARMACY ORDERED LAB ONE (11:45)
[2017-05-01 12:00] VITALS: BP 121/70; PULSE 72; RESP 16; TEMP 98.6; O2SAT 96
[2017-05-01 13:54] LABS: HEMOGLOBIN A1a 2.2 %; HEMOGLOBIN A1b 2.7 %; HEMOGLOBIN Ao 78.3 %; HEMOGLOBIN LA1C 2.2 %
[2017-05-01 16:00] VITALS: BP 123/60; PULSE 67; RESP 16; TEMP 96.5; O2SAT 98
[2017-05-01 20:21] VITALS: BP 127/73; PULSE 79; RESP 18; TEMP 98.5; O2SAT 97
[2017-05-02] VITALS (8 sets, daily range): BP systolic 103–141; BP diastolic 56–81; PULSE 61–85; RESP 16–18; TEMP 97.5–98.7; O2SAT 90–98
[2017-05-02] MEDS: VANCOMYCIN 1,500 MG/NS 500 ML IV SCH ×4 (04:21→13:22)
[2017-05-02] MEDS: SODIUM CHLOR 0.9% 1000 ML INJ 1,000 ML IV SCH ×2 (04:22→22:40)
[2017-05-02] MEDS: INSULIN ASPART SUPPLEMENTAL SCALE SQ SCH ×4 (06:48→22:54)
[2017-05-02] MEDS: DOCUSATE SODIUM 50 MG/SENNA 8.6 MG TAB PO SCH ×2 (08:30→21:00)
[2017-05-02] MEDS: CEFEPIME INJ 1,000 MG in SODIUM CHLORIDE 0.9% INJ 100 ML IV SCH ×2 (08:30→21:16)
[2017-05-02] MEDS: MULTIVITAMIN TAB PO SCH (08:30)
[2017-05-02] MEDS: PRAVASTATIN SOD 40 MG TAB PO SCH (08:31)
[2017-05-02] MEDS: ASPIRIN EC 81 MG TABEC PO SCH (08:31)
[2017-05-02] MEDS: GABAPENTIN 300 MG CAP PO SCH ×3 (08:31→16:41)
[2017-05-02] MEDS: FLUoxetine HCL 20 MG CAP PO SCH (08:31)
[2017-05-02] MEDS: PANTOPRAZOLE SOD 40 MG DELAYED RELEASE TAB PO SCH (08:31)
[2017-05-02] MEDS: SODIUM CHLORIDE 0.9% FLUSH 10 ML FLUSH IV FLUSH SCH ×2 (08:32→21:00)
[2017-05-02] MEDS: INSULIN DETEMIR 100 UNITS/ML VIAL SQ SCH (08:33)
[2017-05-02] MEDS: HEPARIN SODIUM - SQ 10,000 UNITS/ML VIAL SQ SCH ×2 (08:33→21:00)
--- NOTE | 2017-05-02 10:47 | HHI.PR ---
Subjective Remarks f/u; right foot infection resting comfortably with no distress. pain is controlled. no fever. Objective Vitals Vital Signs Date Time Temp Pulse Resp B/P Pulse Ox O2 Delivery O2 Flow Rate FiO2 05/02/17 08:00 97.5 69 18 121/62 96 05/02/17 04:45 97.6 70 16 121/68 95 05/02/17 04:00 Room Air 05/02/17 00:06 97.7 70 17 103/56 98 05/02/17 00:00 Room Air 05/01/17 20:21 98.5 79 18 127/73 97 05/01/17 20:00 Room Air 05/01/17 16:00 96.5 67 16 123/60 98 05/01/17 12:00 98.6 72 16 121/70 96 I/O 05/01/17 05/01/17 05/01/17 05/02/17 05/02/17 05/02/17 06:59 14:59 22:59 06:59 14:59 22:59 Intake Total 360 ml 2755 ml 1548 ml 1465 ml Balance 360 ml 2755 ml 1548 ml 1465 ml Intake Oral 360 ml 480 ml 480 ml 240 ml IV Total 2275 ml 1068 ml 1225 ml # Voids 2 3 2 2 # Bowel Movements 1 Result Diagram: 04/30/17 0455 05/02/17 0520 Imaging Last Impressions Lower Extremity Ultrasound 04/29/171612 Signed Impressions: Service Date/Time: Saturday, April 29, 2017 18:11 - CONCLUSION: 1. No DVT. 2. Right groin adenopathy. Jerod Velasquez Jr., MD Foot X-Ray 04/29/171612 Signed Impressions: Service Date/Time: Saturday, April 29, 2017 17:00 - CONCLUSION: 1. Post surgical changes with possible osteomyelitis involving the distal third and fourth metatarsals. [place] MD Chest X-Ray 04/29/171612 Signed Impressions: Service Date/Time: Saturday, April 29, 2017 17:07 - CONCLUSION: 1. No acute cardiopulmonary disease. Ramiro Dan MD Objective Remarks GENERAL: This is a well-nourished, well-developed patient, in no apparent distress. CARDIOVASCULAR: Regular rate and regular rhythm without murmurs, gallops, or rubs. RESPIRATORY: Clear to auscultation. Breath sounds equal bilaterally. No wheezes , rales, or rhonchi. GASTROINTESTINAL: Abdomen soft, non-tender, nondistended. Normal, active bowel sounds MUSCULOSKELETAL: Extremities without clubbing, cyanosis, or edema. NEURO: Alert & Oriented x4 to person, place, time, situation. Moves all ext x4 skin; foul-smelling wound noted on the lateral aspect of the right foot and healed wound on right midfoot Procedures none Medications and IVs Current Medications Sodium Chloride (NS 1000 ml Inj) 1,000 ml @ 999 mls/hr BOLUS ONCE IV Last administered on 04/29/17 18:51; Start 04/29/17 at 18:15; Stop 04/29/17 at 19:15 ; Status DC Insulin Human NPH 10 units 10 units ONCE ONCE SQ Last administered on 18:50; Start 04/29/17 at 18:30; Stop 04/29/17 at 18:31; Status DC Vancomycin HCl 1000 mg/Sodium Chloride 250 ml @ 250 mls/hr ONCE ONCE IV Last administered on 04/29/17 20:32; Start 04/29/17 at 19:00; Stop 04/29/17 at 19:59 ; Status DC Piperacillin Sod/ Tazobactam Sod (Zosyn 3.375 Gm Premix) 50 ml @ 100 mls/hr ONCE ONCE IV Last administered on 04/29/17 19:59; Start 04/29/17 at 19:00; Stop 04/29/17 at 19:29; Status DC Dextrose (D50w (Vial) Inj) 50 ml UNSCH PRN IV HYPOGLYCEMIA-SEE COMMENTS; Start 04/29/17 at 20:00 Glucagon (Glucagon Inj) 1 mg UNSCH PRN OTHER HYPOGLYCEMIA-SEE COMMENTS; Start 04/29/17 at 20:00 Insulin Aspart 1 1 ACHS SLIDING SCALE SQ Last administered on 05/01/17 21:32 ; Start 04/29/17 at 21:00 Pharmacy Profile Note 0 ml @ 0 mls/hr UNSCH OTHER ; Start 04/29/17 at 20:00 Cefepime HCl 1000 mg/Sodium Chloride 100 ml @ 200 mls/hr Q12H IV Last administered on 05/02/17 08:30; Start 04/30/17 at 09:00 Sodium Chloride (NS 1000 ml Inj) 1,000 ml @ 60 mls/hr [id number] IV Last administered on 05/01/17 13:20; Start 04/29/17 at 19:48 Sodium Chloride (NS Flush) 2 ml UNSCH PRN IV FLUSH FLUSH AFTER USING IV ACCESS ; Start 04/29/17 at 20:00 Sodium Chloride (NS Flush) 2 ml BID IV FLUSH Last administered on 05/01/17 21: 23; Start 04/29/17 at 21:00 Ondansetron HCl (Zofran Inj) 4 mg Q6H PRN IVP NAUSEA OR VOMITING Last administered on 04/29/17 22:44; Start 04/29/17 at 20:00 Acetaminophen (Tylenol) 650 mg Q6H PRN PO FEVER/PAIN SCALE 1 TO 2; Start at 20:00 Acetaminophen/ Hydrocodone Bitart ([place] 5-325 Mg) 1 tab Q4H PRN PO PAIN SCALE 3 TO 5 Last administered on 05/01/17 23:17; Start 04/29/17 at 20:00 Morphine Sulfate (Morphine Inj) 2 mg Q3H PRN IV Pain 6-10 Last administered on 04/30/17 14:40; Start 04/29/17 at 20:00 Senna/Docusate Sodium (Inessa-Colace) 1 tab BID PO Last administered on 08:30; Start 04/29/17 at 21:00 Magnesium Hydroxide (Milk Of Magnesia Liq) 30 ml Q12H PRN PO MILD - MODERATE CONSTIPATION; Start 04/29/17 at 20:00 Sennosides (Senokot) 17.2 mg Q12H PRN PO MODERATE - SEVERE CONSTIPATION; Start 04/29/17 at 20:00 Bisacodyl (Dulcolax Supp) 10 mg DAILY PRN RECTAL SEVERE CONSITIPATION; Start at 20:00 Lactulose (Lactulose Liq) 30 ml DAILY PRN PO SEVERE CONSITIPATION; Start at 20:00 Aspirin (Ecotrin Ec) 81 mg DAILY PO Last administered on 05/02/17 08:31; Start 04/30/17 at 09:00 Fluoxetine HCl (PROzac) 40 mg DAILY PO Last administered on 05/02/17 08:31; Start 04/30/17 at 09:00 Insulin Detemir (Levemir Inj) 45 units DAILY SQ Last administered on 05/02/17 08:33; Start 04/30/17 at 09:00 Pravastatin Sodium (Pravachol) 40 mg DAILY PO Last administered on 05/02/17 08 :31; Start 04/30/17 at 09:00 Multivitamins (Theragran) 1 tab DAILY PO Last administered on 05/02/17 08:30; Start 04/30/17 at 09:00 Heparin Sodium (Porcine) 5000 units 5,000 units Q12HR SQ Last administered on 08:33; Start 04/30/17 at 09:00 Vancomycin HCl 500 mg/Sodium Chloride 100 ml @ 200 mls/hr ONCE ONCE IV Last administered on 04/30/17 00:05; Start 04/29/17 at 23:00; Stop 04/29/17 at 23:29 ; Status DC Vancomycin HCl/ Sodium Chloride (Vancomycin Inj/ NS 500 ml Inj) 515 ml @ 257.5 mls/ hr Q8H IV Last administered on 05/02/17 04:21; Start 04/30/17 at 12:00 Miscellaneous Information SPECIFIC LAB TO BE DRAWN:VA... ONCE ONCE .XX Last administered on 05/01/17 11:45; Start 05/01/17 at 11:45; Stop 05/01/17 at 11:46 ; Status DC Pantoprazole Sodium (Protonix) 40 mg DAILY PO Last administered on 05/02/17 08 :31; Start 04/30/17 at 14:00 Calcium Carbonate (Tums Chew) 500 mg Q12HR PRN CHEW DYSPEPSIA Last administered on 04/30/17 14:37; Start 04/30/17 at 14:00 Gabapentin (Neurontin) 600 mg TID PO Last administered on 05/02/17 08:31; Start 04/30/17 at 18:00 Miscellaneous Information SPECIFIC LAB TO BE DRAWN:VANCOMYCIM TROUGH DATE TO... ONCE ONCE .XX ; Start 05/02/17 at 11:45; Stop 05/02/17 at 11:46 A/P Assessment and Plan A/P 1. Sepsis due to right foot infection/ possible osteomyelitis continue broad-spectrum IV antibiotics and pain control- blood cultures negative so far. arterial doppler unremarkable. podiatry consult appreciated;follow the WBC scan. 2. acute kidney injury- improved- will monitor. 3. DM: overall better controlled. Hgb A1c 9.2- . Hold Metformin for now in light of renal insufficiency and sepsis. Sliding scale w/ Accu-Checks, resumed home Lantus. will monitor and adjust the insulin regimen as needed. 4. DVT Prophylaxis: Heparin sq Teja Cleveland MD May 02, 2017 10:47
--- NOTE | 2017-05-02 10:53 | RADRPT ---
EXAM DATE/TIME: 05/01/2017 11:45 [facility] COMPARISON: FOOT RIGHT COMPLETE ([id number]), April 29, 2017, 17:00. INDICATIONS : Right foot infection with a history of osteomylitis. DOSE: 20 mCi Tc99m Ceretec labeled white blood cells IV SPECT IMAGIN hrs, 20 hrs IMAGNG: SPECT/CT imaging with fusion was performed. RADIATION DOSE: 5.42 CTDIvol (mGy) ; Multiple Day Study MEDICAL HISTORY : Hypertension. Diabetes mellitus type 2. Myocardial infarction. Peripheral neuropathy. SURGICAL HISTORY : Right foot surgery. ENCOUNTER: Initial ACUITY: 1 week PAIN SCALE: 2/10 LOCATION: Right Foot. TECHNIQUE: Following the in vitro labeling of autologous white cells and reinjection, whole body scan was perfor med at the specified times. SPECT imaging was performed at the specified time in sagittal, axial and coronal planes. Attenuation correction was performed with the computed tomography and both the atten uation correction and non-attenuation corrected data sets were reviewed. FINDINGS: There is intense accumulation of labeled white cells in the right fifth metatarsal head and fifth toe proximal phalanx laterally CONCLUSION: 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 Yong Bowling MD on May 02, 2017 at 10:47 Board Certified Radiologist. This report was verified electronically.
[2017-05-02] MEDS ORDERED: PHARMACY ORDERED LAB ONE (11:45)
[2017-05-02] MEDS: ACETAMINOPHEN/HYDROcodone 325 MG/5 MG TAB PO PRN ×2 (16:40→21:16)
--- NOTE | 2017-05-02 18:57 | PD.POD ---
Subjective Pain score: 2 Remarks Right foot with some drainage, left foot may have callous with underlying ulcer he wishes to have addressed. Past Med/Surg/Social History Social History Smoking Status: Current Every Day Smoker Objective Vital Signs Vital Signs Date Time Temp Pulse Resp B/P Pulse Ox O2 Delivery O2 Flow Rate FiO2 05/02/17 16:00 98.3 72 18 118/64 97 05/02/17 12:00 97.8 64 18 138/66 98 05/02/17 08:00 97.5 69 18 121/62 96 05/02/17 04:45 97.6 70 16 121/68 95 05/02/17 04:00 Room Air 05/02/17 00:06 97.7 70 17 103/56 98 05/02/17 00:00 Room Air 05/01/17 20:21 98.5 79 18 127/73 97 05/01/17 20:00 Room Air Coded Allergies: No Known Allergies (Unverified , 04/29/17) Medications and IVs Administered Medications Medications (Trade) Dose Ordered Sig/Adams Route PRN Reason Start Time Stop Time Status Last Admin Dose Admin Cefepime HCl 1000 mg/Sodium Chloride 100 ml @ 200 mls/hr Q12H IV 04/30/17 09:00 05/02/17 08:30 Sodium Chloride (NS 1000 ml Inj) 1,000 ml @ 60 mls/hr [id number] IV 04/29/17 19:48 05/01/17 13:20 Sodium Chloride (NS Flush) 2 ml BID IV FLUSH 04/29/17 21:00 05/01/17 21:23 Ondansetron HCl (Zofran Inj) 4 mg Q6H PRN IVP NAUSEA OR VOMITING 04/29/17 20:00 04/29/17 22:44 Acetaminophen/ Hydrocodone Bitart ([place] 5-325 Mg) 1 tab Q4H PRN PO PAIN SCALE 3 TO 5 04/29/17 20:00 05/02/17 16:40 Morphine Sulfate (Morphine Inj) 2 mg Q3H PRN IV Pain 6-10 04/29/17 20:00 04/30/17 14:40 Senna/Docusate Sodium (Inessa-Colace) 1 tab BID PO 04/29/17 21:00 05/02/17 08:30 Aspirin (Ecotrin Ec) 81 mg DAILY PO 04/30/17 09:00 05/02/17 08:31 Fluoxetine HCl (PROzac) 40 mg DAILY PO 04/30/17 09:00 05/02/17 08:31 Insulin Detemir (Levemir Inj) 45 units DAILY SQ 04/30/17 09:00 05/02/17 08:33 Pravastatin Sodium (Pravachol) 40 mg DAILY PO 04/30/17 09:00 05/02/17 08:31 Multivitamins (Theragran) 1 tab DAILY PO 04/30/17 09:00 05/02/17 08:30 Heparin Sodium (Porcine) (Heparin Inj) 5,000 units Q12HR SQ 04/30/17 09:00 05/02/17 08:33 Pantoprazole Sodium (Protonix) 40 mg DAILY PO 04/30/17 14:00 05/02/17 08:31 Calcium Carbonate (Tums Chew) 500 mg Q12HR PRN CHEW DYSPEPSIA 04/30/17 14:00 04/30/17 14:37 Gabapentin (Neurontin) 600 mg TID PO 04/30/17 18:00 05/02/17 16:41 Other Results Last 72 hours Impressions Tumor Localization 05/01/17 0000 Signed Impressions: Service Date/Time: Monday, May 01, 2017 11:45 - CONCLUSION: 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 Yong Bowling MD Laboratory Tests Test 05/02/17 05:20 Creatinine 0.67 MG/DL Estimat Glomerular Filtration 127 ML/MIN Rate Physical Exam Remarks A and O x3 Non- labored respirations, verbal appropriate. Right foot- 4cm mixed red beefy fibrotic full thickness wound with edema drainage. contracture of lesser digits Left foot pre ulcer lesion of the 3 4 MPJ plantar. BL pedal pulses palpable, sensation decreased to light touch below the BL ankles. Good muscle strength, no signs of charcot BL Assessment & Plan A/P Right foot ulcer OM 5th digit and metatarsal. Left foot DFU neuropathic ulcer/pre ulcer. Bone scan reviewed, patient does not want TMA. We discussed 5th digit amputation , 5th metatarsal resection with attempt at clean margins. Risks reviewed, if he does not control BG, he will go on to BKA. Plan for surgery tomorrow. Willi Drummond DPM May 02, 2017 18:57
[2017-05-03] MEDS ORDERED: CHLORHEXIDINE GLUCONATE 2 % 1 PACK (2 CLOTHS) TOPICAL PRN (02:30)
[2017-05-03] MEDS ORDERED: LACTATED RINGER'S 1000 ML IV PRN (02:30)
[2017-05-03] MEDS ORDERED: POVIDONE IODINE 5% (ANTISEPSIS KIT) 4 APPLICATIONS EACH NARE PRN (02:30)
[2017-05-03] MEDS: VANCOMYCIN INJ 1,700 MG in SODIUM CHLORID 0.9% 500 ML INJ 500 ML IV SCH ×2 (02:41→13:09)
[2017-05-03 03:30] VITALS: BP 140/61; PULSE 63; RESP 18; TEMP 97.3; O2SAT 96
[2017-05-03] MEDS: INSULIN ASPART SUPPLEMENTAL SCALE SQ SCH ×4 (06:13→20:20)
[2017-05-03 08:00] VITALS: BP 146/81; PULSE 64; RESP 18; TEMP 97.9; O2SAT 97
[2017-05-03] MEDS: CEFEPIME INJ 1,000 MG in SODIUM CHLORIDE 0.9% INJ 100 ML IV SCH ×2 (08:00→22:14)
[2017-05-03] MEDS: SODIUM CHLORIDE 0.9% FLUSH 10 ML FLUSH IV FLUSH SCH ×2 (08:00→22:19)
[2017-05-03] MEDS: HEPARIN SODIUM - SQ 10,000 UNITS/ML VIAL SQ SCH ×2 (08:01→22:20)
[2017-05-03] MEDS: INSULIN DETEMIR 100 UNITS/ML VIAL SQ SCH (08:01)
[2017-05-03] MEDS: MULTIVITAMIN TAB PO SCH (08:01)
[2017-05-03] MEDS: FLUoxetine HCL 20 MG CAP PO SCH (08:01)
[2017-05-03] MEDS: PANTOPRAZOLE SOD 40 MG DELAYED RELEASE TAB PO SCH (08:02)
[2017-05-03] MEDS: PRAVASTATIN SOD 40 MG TAB PO SCH (08:02)
[2017-05-03] MEDS: ASPIRIN EC 81 MG TABEC PO SCH (08:02)
[2017-05-03] MEDS: GABAPENTIN 300 MG CAP PO SCH ×3 (08:02→17:38)
[2017-05-03] MEDS: DOCUSATE SODIUM 50 MG/SENNA 8.6 MG TAB PO SCH ×2 (08:02→22:20)
[2017-05-03] MEDS: ACETAMINOPHEN/HYDROcodone 325 MG/5 MG TAB PO PRN ×3 (08:20→17:38)
--- NOTE | 2017-05-03 09:06 | HHI.PR ---
Subjective Remarks resting comfortably with no distress. no fever. pain is mild. no new complaints. awaiting surgery. Objective Vitals Vital Signs Date Time Temp Pulse Resp B/P Pulse Ox O2 Delivery O2 Flow Rate FiO2 05/03/17 08:00 97.9 64 18 146/81 97 05/03/17 03:30 97.3 63 18 140/61 96 05/02/17 23:30 98.4 61 18 141/81 97 05/02/17 22:16 18 05/02/17 21:00 Room Air 05/02/17 19:30 98.2 67 18 112/65 95 05/02/17 16:00 98.3 72 18 118/64 97 05/02/17 12:00 97.8 64 18 138/66 98 I/O 05/02/17 05/02/17 05/02/17 05/03/17 05/03/17 05/03/17 07:00 15:00 23:00 07:00 15:00 23:00 Intake Total 1465 ml 732 ml Balance 1465 ml 732 ml Intake Oral 240 ml 240 ml IV Total 1225 ml 492 ml # Voids 2 1 2 Result Diagram: 04/30/17 0455 05/02/17 0520 Imaging Last Impressions Tumor Localization 05/01/17 0000 Signed Impressions: Service Date/Time: Monday, May 01, 2017 11:45 - CONCLUSION: 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 Yong Bowling MD Lower Extremity Ultrasound 04/29/171612 Signed Impressions: Service Date/Time: Saturday, April 29, 2017 18:11 - CONCLUSION: 1. No DVT. 2. Right groin adenopathy. Jerod Velasquez Jr., MD Foot X-Ray 04/29/171612 Signed Impressions: Service Date/Time: Saturday, April 29, 2017 17:00 - CONCLUSION: 1. Post surgical changes with possible osteomyelitis involving the distal third and fourth metatarsals. [place] MD Chest X-Ray 04/29/171612 Signed Impressions: Service Date/Time: Saturday, April 29, 2017 17:07 - CONCLUSION: 1. No acute cardiopulmonary disease. Ramiro Dan MD Objective Remarks GENERAL: This is a well-nourished, well-developed patient, in no apparent distress. CARDIOVASCULAR: Regular rate and regular rhythm without murmurs, gallops, or rubs. RESPIRATORY: Clear to auscultation. Breath sounds equal bilaterally. No wheezes , rales, or rhonchi. GASTROINTESTINAL: Abdomen soft, non-tender, nondistended. Normal, active bowel sounds MUSCULOSKELETAL: Extremities without clubbing, cyanosis, or edema. NEURO: Alert & Oriented x4 to person, place, time, situation. Moves all ext x4 skin; foul-smelling wound noted on the lateral aspect of the right foot and healed wound on right midfoot Procedures none Medications and IVs Current Medications Sodium Chloride (NS 1000 ml Inj) 1,000 ml @ 999 mls/hr BOLUS ONCE IV Last administered on 04/29/17 18:51; Start 04/29/17 at 18:15; Stop 04/29/17 at 19:15 ; Status DC Insulin Human NPH 10 units 10 units ONCE ONCE SQ Last administered on 18:50; Start 04/29/17 at 18:30; Stop 04/29/17 at 18:31; Status DC Vancomycin HCl 1000 mg/Sodium Chloride 250 ml @ 250 mls/hr ONCE ONCE IV Last administered on 04/29/17 20:32; Start 04/29/17 at 19:00; Stop 04/29/17 at 19:59 ; Status DC Piperacillin Sod/ Tazobactam Sod (Zosyn 3.375 Gm Premix) 50 ml @ 100 mls/hr ONCE ONCE IV Last administered on 04/29/17 19:59; Start 04/29/17 at 19:00; Stop 04/29/17 at 19:29; Status DC Dextrose (D50w (Vial) Inj) 50 ml UNSCH PRN IV HYPOGLYCEMIA-SEE COMMENTS; Start 04/29/17 at 20:00 Glucagon (Glucagon Inj) 1 mg UNSCH PRN OTHER HYPOGLYCEMIA-SEE COMMENTS; Start 04/29/17 at 20:00 Insulin Aspart 1 1 ACHS SLIDING SCALE SQ Last administered on 05/02/17 22:54 ; Start 04/29/17 at 21:00 Pharmacy Profile Note 0 ml @ 0 mls/hr UNSCH OTHER ; Start 04/29/17 at 20:00 Cefepime HCl 1000 mg/Sodium Chloride 100 ml @ 200 mls/hr Q12H IV Last administered on 05/03/17 08:00; Start 04/30/17 at 09:00 Sodium Chloride (NS 1000 ml Inj) 1,000 ml @ 60 mls/hr [id number] IV Last administered on 05/02/17 22:40; Start 04/29/17 at 19:48 Sodium Chloride (NS Flush) 2 ml UNSCH PRN IV FLUSH FLUSH AFTER USING IV ACCESS ; Start 04/29/17 at 20:00 Sodium Chloride (NS Flush) 2 ml BID IV FLUSH Last administered on 05/01/17 21: 23; Start 04/29/17 at 21:00 Ondansetron HCl (Zofran Inj) 4 mg Q6H PRN IVP NAUSEA OR VOMITING Last administered on 04/29/17 22:44; Start 04/29/17 at 20:00 Acetaminophen (Tylenol) 650 mg Q6H PRN PO FEVER/PAIN SCALE 1 TO 2; Start at 20:00 Acetaminophen/ Hydrocodone Bitart ([place] 5-325 Mg) 1 tab Q4H PRN PO PAIN SCALE 3 TO 5 Last administered on 05/03/17 08:20; Start 04/29/17 at 20:00 Morphine Sulfate (Morphine Inj) 2 mg Q3H PRN IV Pain 6-10 Last administered on 04/30/17 14:40; Start 04/29/17 at 20:00 Senna/Docusate Sodium (Inessa-Colace) 1 tab BID PO Last administered on 08:30; Start 04/29/17 at 21:00 Magnesium Hydroxide (Milk Of Magnesia Liq) 30 ml Q12H PRN PO MILD - MODERATE CONSTIPATION; Start 04/29/17 at 20:00 Sennosides (Senokot) 17.2 mg Q12H PRN PO MODERATE - SEVERE CONSTIPATION; Start 04/29/17 at 20:00 Bisacodyl (Dulcolax Supp) 10 mg DAILY PRN RECTAL SEVERE CONSITIPATION; Start at 20:00 Lactulose (Lactulose Liq) 30 ml DAILY PRN PO SEVERE CONSITIPATION; Start at 20:00 Aspirin (Ecotrin Ec) 81 mg DAILY PO Last administered on 05/02/17 08:31; Start 04/30/17 at 09:00 Fluoxetine HCl (PROzac) 40 mg DAILY PO Last administered on 05/03/17 08:01; Start 04/30/17 at 09:00 Insulin Detemir (Levemir Inj) 45 units DAILY SQ Last administered on 05/02/17 08:33; Start 04/30/17 at 09:00 Pravastatin Sodium (Pravachol) 40 mg DAILY PO Last administered on 05/03/17 08 :02; Start 04/30/17 at 09:00 Multivitamins (Theragran) 1 tab DAILY PO Last administered on 05/03/17 08:01; Start 04/30/17 at 09:00 Heparin Sodium (Porcine) 5000 units 5,000 units Q12HR SQ Last administered on 08:33; Start 04/30/17 at 09:00 Vancomycin HCl 500 mg/Sodium Chloride 100 ml @ 200 mls/hr ONCE ONCE IV Last administered on 04/30/17 00:05; Start 04/29/17 at 23:00; Stop 04/29/17 at 23:29 ; Status DC Vancomycin HCl/ Sodium Chloride (Vancomycin Inj/ NS 500 ml Inj) 515 ml @ 257.5 mls/ hr Q8H IV Last administered on 05/02/17 13:22; Start 04/30/17 at 12:00; Stop 05/02/17 at 16:01; Status DC Miscellaneous Information SPECIFIC LAB TO BE DRAWN:VA... ONCE ONCE .XX Last administered on 05/01/17 11:45; Start 05/01/17 at 11:45; Stop 05/01/17 at 11:46 ; Status DC Pantoprazole Sodium (Protonix) 40 mg DAILY PO Last administered on 05/03/17 08 :02; Start 04/30/17 at 14:00 Calcium Carbonate (Tums Chew) 500 mg Q12HR PRN CHEW DYSPEPSIA Last administered on 04/30/17 14:37; Start 04/30/17 at 14:00 Gabapentin (Neurontin) 600 mg TID PO Last administered on 05/03/17 08:02; Start 04/30/17 at 18:00 Miscellaneous Information SPECIFIC LAB TO BE DRAWN:VANCOMYCIM TROUGH DATE TO... ONCE ONCE .XX ; Start 05/02/17 at 11:45; Stop 05/02/17 at 11:46; Status DC Vancomycin HCl/ Sodium Chloride (Vancomycin Inj/ NS 500 ml Inj) 517 ml @ 257.5 mls/ hr Q12H IV Last administered on 05/03/17t 02:41; Start 05/03/17 at 02:00 Miscellaneous Information SPECIFIC LAB TO BE DRAWN:VANCOMY... ONCE ONCE .XX ; Start 05/04/17 at 13:45; Stop 05/04/17 at 13:46 Lactated Ringer's (Lr 1000 ml Inj) 1,000 ml @ 30 mls/hr Q24H PRN IV SEE LABEL COMMENTS; Start 05/03/17 at 02:30; Stop 05/06/17 at 02:29 Povidone Iodine (Betadine 5% Antisepsis Kit) 1 applic RENTAL CAR F[employer]Y DRIVER PRN EACH NARE SEE LABEL COMMENTS; Start 05/03/17 at 02:30; Stop 05/06/17 at 02:29 Chlorhexidine Gluconate (Chlorhexidine 2% Cloth) 3 pack RENTAL [employer] FERRY [employer]IVER PRN TOPICAL SEE LABEL COMMENTS; Start 05/03/17 at 02:30; Stop 05/06/17 at 02:29 A/P Assessment and Plan A/P 1. Sepsis due to right foot infection/ possible osteomyelitis tumor localization with 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 continue broad-spectrum IV antibiotics and pain control- blood cultures negative so far. arterial doppler unremarkable. podiatry following; plan for 5th digit amputation, 5th metatarsal resection today. 2. acute kidney injury- improved- will monitor. 3. DM: overall better controlled. Hgb A1c 9.2- . Hold Metformin for now in light of renal insufficiency and sepsis. Sliding scale w/ Accu-Checks, resumed home Lantus. will monitor and adjust the insulin regimen as needed. 4. DVT Prophylaxis: Heparin sq Teja Cleveland MD May 03, 2017 09:06
[2017-05-03 12:11] VITALS: BP 140/73; PULSE 58; RESP 18; TEMP 98.1; O2SAT 97
[2017-05-03] MEDS ORDERED: ONDANSETRON HCL 4 MG/2 ML VIAL IV PUSH ONE (13:25)
[2017-05-03] MEDS ORDERED: PROPOFOL 200 MG/20 ML AMP IV ONE (13:25)
[2017-05-03] MEDS: SODIUM CHLOR 0.9% 1000 ML INJ 1,000 ML IV SCH (15:20)
[2017-05-03] MEDS ORDERED: BACITRACIN TOP OINT 15 GM TUBE ONE (15:39)
[2017-05-03] MEDS ORDERED: BUPIVACAINE HCL PF 0.5% 30 ML VIAL ONE (15:39)
[2017-05-03] MEDS ORDERED: LIDOCAINE HCL 1% 50 ML VIAL ONE (15:40)
[2017-05-03 16:00] VITALS: BP 144/83; PULSE 60; RESP 18; TEMP 97.4; O2SAT 97
[2017-05-03] MEDS ORDERED: BUPIVACAINE HCL PF 0.25% 30 ML VIAL ONE (18:22)
--- NOTE | 2017-05-03 19:57 | HHI.PR ---
Immediate Post Op Note Procedure Date: May 03, 2017 Pre Op Diagnosis: Right foot ulcer likely OM of 5th digit and 5th metatarsal head, left foot ulcer Post Op Diagnosis: same Surgeon: Willi Richards Steamer Blocker(s): scrub Procedure: Right 5th digit and 5th metatarsal resection Left foot ulcer debridement, sharp/excisional Findings: see op dict Complications: none Specimen(s) removed: Right 5th digit and 5th metatarsal for path- check proximal margin for OM, Deep bone Cx for micro Estimated blood loss: 75mL Anesthesia: General, Local Drains: None Fluids: see anethesia IVF Patient to: Other Patient Condition: Good Implant/Devices: SEE IMPLANT LOG (if applicable) Date/Time of Procedure: SEE SURGICAL CARE RECORD Willi Richards DPM May 03, 2017 19:57
[2017-05-03 21:00] VITALS: BP 121/78; PULSE 67; RESP 20; TEMP 96.4; O2SAT 96
[2017-05-03] MEDS ORDERED: DO NOT ADM ANY ANTICOAGULANT DRUGS PRN (21:00)
[2017-05-04 00:41] VITALS: BP 111/69; PULSE 79; RESP 18; TEMP 98.6; O2SAT 96
[2017-05-04 04:00] VITALS: BP 103/58; PULSE 87; RESP 16; TEMP 98.7; O2SAT 94
[2017-05-04] MEDS: INSULIN ASPART SUPPLEMENTAL SCALE SQ SCH ×4 (05:59→21:00)
[2017-05-04] MEDS: ACETAMINOPHEN 325 MG TAB PO PRN (06:27)
[2017-05-04] MEDS: VANCOMYCIN INJ 1,700 MG in SODIUM CHLORID 0.9% 500 ML INJ 500 ML IV SCH ×2 (06:27→14:14)
[2017-05-04] MEDS: SODIUM CHLOR 0.9% 1000 ML INJ 1,000 ML IV SCH (06:31)
[2017-05-04 08:00] VITALS: BP 125/76; PULSE 80; RESP 17; TEMP 99.2; O2SAT 98
[2017-05-04] MEDS: CEFEPIME INJ 1,000 MG in SODIUM CHLORIDE 0.9% INJ 100 ML IV SCH ×2 (08:37→21:38)
[2017-05-04] MEDS: GABAPENTIN 300 MG CAP PO SCH ×3 (08:38→16:32)
[2017-05-04] MEDS: HEPARIN SODIUM - SQ 10,000 UNITS/ML VIAL SQ SCH ×2 (08:38→21:38)
[2017-05-04] MEDS: DOCUSATE SODIUM 50 MG/SENNA 8.6 MG TAB PO SCH ×2 (08:38→21:00)
[2017-05-04] MEDS: SODIUM CHLORIDE 0.9% FLUSH 10 ML FLUSH IV FLUSH SCH ×2 (08:39→21:00)
[2017-05-04] MEDS: PANTOPRAZOLE SOD 40 MG DELAYED RELEASE TAB PO SCH (08:39)
[2017-05-04] MEDS: ASPIRIN EC 81 MG TABEC PO SCH (08:39)
[2017-05-04] MEDS: PRAVASTATIN SOD 40 MG TAB PO SCH (08:39)
[2017-05-04] MEDS: MULTIVITAMIN TAB PO SCH (08:39)
[2017-05-04] MEDS: FLUoxetine HCL 20 MG CAP PO SCH (08:39)
[2017-05-04] MEDS: INSULIN DETEMIR 100 UNITS/ML VIAL SQ SCH (08:44)
--- NOTE | 2017-05-04 11:18 | HHI.PR ---
Subjective Remarks resting comfortably with no distress. pain is controlled. no fever. Objective Vitals Vital Signs Date Time Temp Pulse Resp B/P Pulse Ox O2 Delivery O2 Flow Rate FiO2 05/04/17 08:00 99.2 80 17 125/76 98 05/04/17 04:00 98.7 87 16 103/58 94 05/04/17 00:41 98.6 79 18 111/69 96 05/03/17 21:00 96.4 67 20 121/78 96 05/03/17 20:30 97.5 62 13 114/71 94 Nasal Cannula 2 05/03/17 20:15 61 13 129/78 97 Nasal Cannula 2 05/03/17 20:00 63 14 130/74 96 Nasal Cannula 2 05/03/17 19:53 98.1 70 16 108/68 91 Nasal Cannula 2 05/03/17 16:00 97.4 60 18 144/83 97 05/03/17 12:11 98.1 58 18 140/73 97 I/O 05/03/17 05/03/17 05/03/17 05/04/17 05/04/17 05/04/17 07:00 15:00 23:00 07:00 15:00 23:00 Intake Total 2352 ml 500 ml 620 ml Output Total 50 ml 520 ml Balance 2352 ml 450 ml 100 ml Intake Oral 0 ml 620 ml IV Total 2352 ml Other 500 ml Output Urine Total 520 ml Estimated Blood Loss 50 ml # Voids 2 0 # Bowel Movements 0 0 Result Diagram: 04/30/17 0455 05/04/17 0515 Imaging Last Impressions Tumor Localization 05/01/17 0000 Signed Impressions: Service Date/Time: Monday, May 01, 2017 11:45 - CONCLUSION: 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 Yong Bowling MD Lower Extremity Ultrasound 04/29/171612 Signed Impressions: Service Date/Time: Saturday, April 29, 2017 18:11 - CONCLUSION: 1. No DVT. 2. Right groin adenopathy. Jerod Velasquez Jr., MD Foot X-Ray 04/29/171612 Signed Impressions: Service Date/Time: Saturday, April 29, 2017 17:00 - CONCLUSION: 1. Post surgical changes with possible osteomyelitis involving the distal third and fourth metatarsals. [place] MD Chest X-Ray 04/29/17 1528 Signed Impressions: Service Date/Time: Saturday, April 29, 2017 17:07 - CONCLUSION: 1. No acute cardiopulmonary disease. Ramiro Dan MD Objective Remarks GENERAL: This is a well-nourished, well-developed patient, in no apparent distress. CARDIOVASCULAR: Regular rate and regular rhythm without murmurs, gallops, or rubs. RESPIRATORY: Clear to auscultation. Breath sounds equal bilaterally. No wheezes , rales, or rhonchi. GASTROINTESTINAL: Abdomen soft, non-tender, nondistended. Normal, active bowel sounds MUSCULOSKELETAL: Extremities without clubbing, cyanosis, or edema. NEURO: Alert & Oriented x4 to person, place, time, situation. Moves all ext x4 skin; foul-smelling wound noted on the lateral aspect of the right foot and healed wound on right midfoot Procedures none Medications and IVs Current Medications Sodium Chloride (NS 1000 ml Inj) 1,000 ml @ 999 mls/hr BOLUS ONCE IV Last administered on 04/29/17 18:51; Start 04/29/17 at 18:15; Stop 04/29/17 at 19:15 ; Status DC Insulin Human NPH 10 units 10 units ONCE ONCE SQ Last administered on 18:50; Start 04/29/17 at 18:30; Stop 04/29/17 at 18:31; Status DC Vancomycin HCl 1000 mg/Sodium Chloride 250 ml @ 250 mls/hr ONCE ONCE IV Last administered on 04/29/17 20:32; Start 04/29/17 at 19:00; Stop 04/29/17 at 19:59 ; Status DC Piperacillin Sod/ Tazobactam Sod (Zosyn 3.375 Gm Premix) 50 ml @ 100 mls/hr ONCE ONCE IV Last administered on 04/29/17 19:59; Start 04/29/17 at 19:00; Stop 04/29/17 at 19:29; Status DC Dextrose (D50w (Vial) Inj) 50 ml UNSCH PRN IV HYPOGLYCEMIA-SEE COMMENTS; Start 04/29/17 at 20:00 Glucagon (Glucagon Inj) 1 mg UNSCH PRN OTHER HYPOGLYCEMIA-SEE COMMENTS; Start 04/29/17 at 20:00 Insulin Aspart 1 1 ACHS SLIDING SCALE SQ Last administered on 05/04/17 05:59 ; Start 04/29/17 at 21:00 Pharmacy Profile Note 0 ml @ 0 mls/hr UNSCH OTHER ; Start 04/29/17 at 20:00 Cefepime HCl 1000 mg/Sodium Chloride 100 ml @ 200 mls/hr Q12H IV Last administered on 05/04/17 08:37; Start 04/30/17 at 09:00 Sodium Chloride (NS 1000 ml Inj) 1,000 ml @ 60 mls/hr [id number] IV Last administered on 05/04/17 06:31; Start 04/29/17 at 19:48 Sodium Chloride (NS Flush) 2 ml UNSCH PRN IV FLUSH FLUSH AFTER USING IV ACCESS ; Start 04/29/17 at 20:00 Sodium Chloride (NS Flush) 2 ml BID IV FLUSH Last administered on 05/03/17 22: 19; Start 04/29/17 at 21:00 Ondansetron HCl (Zofran Inj) 4 mg Q6H PRN IVP NAUSEA OR VOMITING Last administered on 04/29/17 22:44; Start 04/29/17 at 20:00 Acetaminophen (Tylenol) 650 mg Q6H PRN PO FEVER/PAIN SCALE 1 TO 2 Last administered on 05/04/17 06:27; Start 04/29/17 at 20:00 Acetaminophen/ Hydrocodone Bitart ([place] 5-325 Mg) 1 tab Q4H PRN PO PAIN SCALE 3 TO 5 Last administered on 05/03/17 17:38; Start 04/29/17 at 20:00 Morphine Sulfate (Morphine Inj) 2 mg Q3H PRN IV Pain 6-10 Last administered on 04/30/17 14:40; Start 04/29/17 at 20:00 Senna/Docusate Sodium (Inessa-Colace) 1 tab BID PO Last administered on 22:20; Start 04/29/17 at 21:00 Magnesium Hydroxide (Milk Of Magnesia Liq) 30 ml Q12H PRN PO MILD - MODERATE CONSTIPATION; Start 04/29/17 at 20:00 Sennosides (Senokot) 17.2 mg Q12H PRN PO MODERATE - SEVERE CONSTIPATION; Start 04/29/17 at 20:00 Bisacodyl (Dulcolax Supp) 10 mg DAILY PRN RECTAL SEVERE CONSITIPATION; Start at 20:00 Lactulose (Lactulose Liq) 30 ml DAILY PRN PO SEVERE CONSITIPATION; Start at 20:00 Aspirin (Ecotrin Ec) 81 mg DAILY PO Last administered on 05/04/17 08:39; Start 04/30/17 at 09:00 Fluoxetine HCl (PROzac) 40 mg DAILY PO Last administered on 05/04/17 08:39; Start 04/30/17 at 09:00 Insulin Detemir (Levemir Inj) 45 units DAILY SQ Last administered on 05/04/17 08:44; Start 04/30/17 at 09:00 Pravastatin Sodium (Pravachol) 40 mg DAILY PO Last administered on 05/04/17 08 :39; Start 04/30/17 at 09:00 Multivitamins (Theragran) 1 tab DAILY PO Last administered on 05/04/17 08:39; Start 04/30/17 at 09:00 Heparin Sodium (Porcine) 5000 units 5,000 units Q12HR SQ Last administered on 08:38; Start 04/30/17 at 09:00 Vancomycin HCl 500 mg/Sodium Chloride 100 ml @ 200 mls/hr ONCE ONCE IV Last administered on 04/30/17 00:05; Start 04/29/17 at 23:00; Stop 04/29/17 at 23:29 ; Status DC Vancomycin HCl/ Sodium Chloride (Vancomycin Inj/ NS 500 ml Inj) 515 ml @ 257.5 mls/ hr Q8H IV Last administered on 05/02/17 13:22; Start 04/30/17 at 12:00; Stop 05/02/17 at 16:01; Status DC Miscellaneous Information SPECIFIC LAB TO BE DRAWN:VA... ONCE ONCE .XX Last administered on 05/01/17 11:45; Start 05/01/17 at 11:45; Stop 05/01/17 at 11:46 ; Status DC Pantoprazole Sodium (Protonix) 40 mg DAILY PO Last administered on 05/04/17 08 :39; Start 04/30/17 at 14:00 Calcium Carbonate (Tums Chew) 500 mg Q12HR PRN CHEW DYSPEPSIA Last administered on 04/30/17 14:37; Start 04/30/17 at 14:00 Gabapentin (Neurontin) 600 mg TID PO Last administered on 05/04/17 08:38; Start 04/30/17 at 18:00 Miscellaneous Information SPECIFIC LAB TO BE DRAWN:VANCOMYCIM TROUGH DATE TO... ONCE ONCE .XX ; Start 05/02/17 at 11:45; Stop 05/02/17 at 11:46; Status DC Vancomycin HCl/ Sodium Chloride (Vancomycin Inj/ NS 500 ml Inj) 517 ml @ 257.5 mls/ hr Q12H IV Last administered on 05/04/17 06:27; Start 05/03/17 at 02:00 Miscellaneous Information SPECIFIC LAB TO BE DRAWN:VANCOMY... ONCE ONCE .XX ; Start 05/04/17 at 13:45; Stop 05/04/17 at 13:46 Lactated Ringer's (Lr 1000 ml Inj) 1,000 ml @ 30 mls/hr Q24H PRN IV SEE LABEL COMMENTS; Start 05/03/17 at 02:30; Stop 05/06/17 at 02:29 Povidone Iodine (Betadine 5% Antisepsis Kit) 1 applic TAPE TRANSFERRER PRN EACH NARE SEE LABEL COMMENTS; Start 05/03/17 at 02:30; Stop 05/06/17 at 02:29 Chlorhexidine Gluconate (Chlorhexidine 2% Cloth) 3 pack TAPE TRANSFERRER PRN TOPICAL SEE LABEL COMMENTS; Start 05/03/17 at 02:30; Stop 05/06/17 at 02:29 Bupivacaine HCl (Marcaine Pf 0.5% Inj) 30 ml STK-MED ONCE .ROUTE ; Start at 15:39; Stop 05/03/17 at 15:40; Status DC Bacitracin (Baciguent Oint) 15 applic STK-MED ONCE .ROUTE ; Start 05/03/17 at 15 :39; Stop 05/03/17 at 15:40; Status DC Lidocaine HCl (Xylocaine 1% Inj (50 ml)) 50 ml STK-MED ONCE .ROUTE ; Start 05/03 at 15:40; Stop 05/03/17 at 15:41; Status DC Bupivacaine HCl ([place] Pf 0.25% Inj) 30 ml STK-MED ONCE .ROUTE Last administered on 6/27/17at 19:29; Start 05/03/17 at 18:22; Stop 05/03/17 at 18:23 ; Status DC Fentanyl Citrate (fentaNYL INJ) 100 mcg STK-MED ONCE .ROUTE ; Start 05/03/17 at 20:00; Stop 05/03/17 at 20:01; Status DC Miscellaneous Information ALL NURSING DEPARTME... UNSCH PRN .XX SEE LABEL COMMENTS; Start 05/03/17 at 21:00; Stop 05/04/17 at 20:59 A/P Assessment and Plan A/P 1. Sepsis due to right foot infection/ possible osteomyelitis tumor localization with 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 s/p Right 5th digit and 5th metatarsal resection and Left foot ulcer debridement, sharp/excisional- f/u the pathology and culture. continue broad-spectrum IV antibiotics and pain control- blood cultures negative so far. arterial doppler unremarkable. podiatry following. 2. acute kidney injury- improved- will monitor. 3. DM: not optimally controlled- Hgb A1c 9.2- . Hold Metformin for now in light of renal insufficiency and sepsis. will increase levemir and continue Sliding scale w/ Accu-Checks. will monitor and adjust the insulin regimen as needed. 4. DVT Prophylaxis: Heparin sq Teja [place] MD May 04, 2017 11:17
[2017-05-04 12:00] VITALS: BP 126/74; PULSE 76; RESP 18; TEMP 99.4; O2SAT 95
[2017-05-04] MEDS ORDERED: PHARMACY ORDERED LAB ONE (13:45)
[2017-05-04] MEDS: ACETAMINOPHEN/HYDROcodone 325 MG/5 MG TAB PO PRN (16:32)
--- NOTE | 2017-05-04 18:29 | PD.POD ---
Subjective Pain score: 2 Remarks Right foot doing well Past Med/Surg/Social History Social History Smoking Status: Current Every Day Smoker Objective Vital Signs Vital Signs Date Time Temp Pulse Resp B/P Pulse Ox O2 Delivery O2 Flow Rate FiO2 05/04/17 17:49 21 05/04/17 12:00 99.4 76 18 126/74 95 05/04/17 08:00 99.2 80 17 125/76 98 05/04/17 04:00 98.7 87 16 103/58 94 05/04/17 00:41 98.6 79 18 111/69 96 05/03/17 21:00 96.4 67 20 121/78 96 05/03/17 20:30 97.5 62 13 114/71 94 Nasal Cannula 2 05/03/17 20:15 61 13 129/78 97 Nasal Cannula 2 05/03/17 20:00 63 14 130/74 96 Nasal Cannula 2 05/03/17 19:53 98.1 70 16 108/68 91 Nasal Cannula 2 Coded Allergies: No Known Allergies (Unverified , 04/29/17) Medications and IVs Administered Medications Medications (Trade) Dose Ordered Sig/Adams Route PRN Reason Start Time Stop Time Status Last Admin Dose Admin Cefepime HCl 1000 mg/Sodium Chloride 100 ml @ 200 mls/hr Q12H IV 04/30/17 09:00 05/04/17 08:37 Sodium Chloride (NS 1000 ml Inj) 1,000 ml @ 60 mls/hr [id number] IV 04/29/17 19:48 05/04/17 06:31 Sodium Chloride (NS Flush) 2 ml BID IV FLUSH 04/29/17 21:00 05/03/17 22:19 Ondansetron HCl (Zofran Inj) 4 mg Q6H PRN IVP NAUSEA OR VOMITING 04/29/17 20:00 04/29/17 22:44 Acetaminophen (Tylenol) 650 mg Q6H PRN PO FEVER/PAIN SCALE 1 TO 2 04/29/17 20:00 05/04/17 06:27 Acetaminophen/ Hydrocodone Bitart ([place] 5-325 Mg) 1 tab Q4H PRN PO PAIN SCALE 3 TO 5 04/29/17 20:00 05/04/17 16:32 Morphine Sulfate (Morphine Inj) 2 mg Q3H PRN IV Pain 6-10 04/29/17 20:00 04/30/17 14:40 Senna/Docusate Sodium (Inessa-Colace) 1 tab BID PO 04/29/17 21:00 05/03/17 22:20 Aspirin (Ecotrin Ec) 81 mg DAILY PO 04/30/17 09:00 05/04/17 08:39 Fluoxetine HCl (PROzac) 40 mg DAILY PO 04/30/17 09:00 05/04/17 08:39 Pravastatin Sodium (Pravachol) 40 mg DAILY PO 04/30/17 09:00 05/04/17 08:39 Multivitamins (Theragran) 1 tab DAILY PO 04/30/17 09:00 05/04/17 08:39 Heparin Sodium (Porcine) (Heparin Inj) 5,000 units Q12HR SQ 04/30/17 09:00 05/04/17 08:38 Pantoprazole Sodium (Protonix) 40 mg DAILY PO 04/30/17 14:00 05/04/17 08:39 Calcium Carbonate (Tums Chew) 500 mg Q12HR PRN CHEW DYSPEPSIA 04/30/17 14:00 04/30/17 14:37 Gabapentin 600 mg 600 mg TID PO 04/30/17 18:00 05/04/17 16:32 Vancomycin HCl/ Sodium Chloride (Vancomycin Inj/ NS 500 ml Inj) 517 ml @ 257.5 mls/ hr Q12H IV 05/03/17 02:00 05/04/17 14:14 Other Results Laboratory Tests Test 05/04/17 05:15 Creatinine 0.77 MG/DL Estimat Glomerular Filtration 108 ML/MIN Rate Microbiology Date/Time Procedure Status Source Growth 05/03/17 20:46 Gram Stain - Final Resulted Wound Foot 05/03/17 20:46 Wound Culture - Preliminary Resulted Wound Foot NO GROWTH IN 24 HOURS. 05/03/17 20:46 Acid Fast Stain Received Wound Foot Pending 05/03/17 20:46 Mycobacterial Culture Received Wound Foot Pending 05/03/17 20:46 Fungal Smear - Final Resulted Wound Foot NO FUNGAL ELEMENTS SEEN. 05/03/17 20:46 Fungal Culture Resulted Wound Foot Pending bone path pending Physical Exam Remarks Right foot bandage intact without strike through, no swelling or redness above the ankle, toes 1-4 pink. Left foot without infection pre ulcer lesion noted- uncomplicated. Assessment & Plan A/P Right foot ulcer OM 5th digit and metatarsal. Left foot DFU neuropathic ulcer/pre ulcer. SP right 5th digit and 5th Ray Amp 05/03 Doing well, reviewed labs. Awaiting margins to see if senior care IV ABX needed, prefer 2 weeks IV ABX minimum. Will FU tomorrow for wound check. Continue nonWB. Willi Drummond DPM May 04, 2017 18:29
[2017-05-04 20:00] VITALS: BP 140/77; PULSE 69; RESP 20; TEMP 97.2; O2SAT 95
[2017-05-05] VITALS (7 sets, daily range): BP systolic 114–148; BP diastolic 62–85; PULSE 66–79; RESP 16–20; TEMP 96.1–97.3; O2SAT 94–97
[2017-05-05] MEDS: VANCOMYCIN INJ 1,700 MG in SODIUM CHLORID 0.9% 500 ML INJ 500 ML IV SCH ×2 (02:28→15:46)
[2017-05-05 06:34] LABS: AUTOMATED NEUTROPHIL # 5.4 TH/MM3 (1.8-7.7); BASOPHIL # 0.1 TH/MM3 (0-0.2); BASOPHIL % 0.9 % (0.0-2.0); EOSINOPHIL # 0.3 TH/MM3 (0-0.4); EOSINOPHIL % 2.7 % (0.0-4.0); HEMATOCRIT 34.5 % (39.0-51.0); HEMO FLAGS DIFF FINAL; LYMPH % 27.2 % (9.0-44.0); LYMPHOCYTE # 2.6 TH/MM3 (1.0-4.8); MEAN CELL VOLUME 81.1 FL (80.0-100.0); MEAN CORPUSCULAR HEMOGLOBIN 27.9 PG (27.0-34.0); MEAN CORPUSCULAR HGB CONC 34.4 % (32.0-36.0); MONO % 12.3 % (0.0-8.0); NEUT % 56.9 % (16.0-70.0); PLATELET COUNT 401 TH/MM3 (150-450); RED BLOOD COUNT 4.25 MIL/MM3 (4.50-5.90); WHITE BLOOD COUNT 9.5 TH/MM3 (4.0-11.0)
[2017-05-05] MEDS: INSULIN ASPART SUPPLEMENTAL SCALE SQ SCH ×4 (06:45→21:44)
[2017-05-05 06:49] LABS: ANION GAP 6 MEQ/L (5-15); AST (GOT) 15 U/L (15-37); BICARBONATE 29.9 MEQ/L (21.0-32.0); BLOOD UREA NITROGEN 9 MG/DL (7-18); CHLORIDE 104 MEQ/L (98-107); GLOMERULAR FILTRATION RATE 117 ML/MIN (>89); POTASSIUM 3.5 MEQ/L (3.5-5.1); SODIUM (NA) 140 MEQ/L (136-145)
[2017-05-05 06:50] LABS: ALT (GPT) 15 U/L (12-78)
[2017-05-05 06:52] LABS: ALKALINE PHOSPHATASE 107 U/L (45-117); TOTAL BILIRUBIN ADULT 0.2 MG/DL (0.2-1.0)
--- NOTE | 2017-05-05 08:36 | HHI.PR ---
Subjective Remarks resting comfortably with no distress. pain is controlled. no fever. Objective Vitals Vital Signs Date Time Temp Pulse Resp B/P Pulse Ox O2 Delivery O2 Flow Rate FiO2 05/05/17 04:00 96.8 68 20 127/75 97 05/05/17 00:00 97.3 69 20 114/62 94 05/04/17 20:15 95 Room Air 05/04/17 20:00 97.2 69 20 140/77 95 05/04/17 17:49 21 05/04/17 12:00 99.4 76 18 126/74 95 I/O 05/04/17 05/04/17 05/04/17 05/05/17 05/05/17 05/05/17 07:00 15:00 23:00 07:00 15:00 23:00 Intake Total 620 ml 1200 ml 882 ml 1376 ml Output Total 520 ml 1400 ml 1000 ml 600 ml Balance 100 ml -200 ml -118 ml 776 ml Intake Oral 620 ml 1200 ml 480 ml 480 ml IV Total 402 ml 896 ml Output Urine Total 520 ml 1400 ml 1000 ml 600 ml # Voids 1 # Bowel Movements 0 1 Result Diagram: 05/05/17 0532 05/05/17 0532 Imaging Last Impressions Tumor Localization 05/01/17 0000 Signed Impressions: Service Date/Time: Monday, May 01, 2017 11:45 - CONCLUSION: 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 Yong Bowling MD Lower Extremity Ultrasound 04/29/[id number] Signed Impressions: Service Date/Time: Saturday, April 29, 2017 18:11 - CONCLUSION: 1. No DVT. 2. Right groin adenopathy. Jerod Velasquez Jr., MD Foot X-Ray 04/29/171612 Signed Impressions: Service Date/Time: Saturday, April 29, 2017 17:00 - CONCLUSION: 1. Post surgical changes with possible osteomyelitis involving the distal third and fourth metatarsals. [place] MD Chest X-Ray 04/29/171612 Signed Impressions: Service Date/Time: Saturday, April 29, 2017 17:07 - CONCLUSION: 1. No acute cardiopulmonary disease. Ramiro Dan MD Objective Remarks GENERAL: This is a well-nourished, well-developed patient, in no apparent distress. CARDIOVASCULAR: Regular rate and regular rhythm without murmurs, gallops, or rubs. RESPIRATORY: Clear to auscultation. Breath sounds equal bilaterally. No wheezes , rales, or rhonchi. GASTROINTESTINAL: Abdomen soft, non-tender, nondistended. Normal, active bowel sounds MUSCULOSKELETAL: Extremities without clubbing, cyanosis, or edema. NEURO: Alert & Oriented x4 to person, place, time, situation. Moves all ext x4 skin; foul-smelling wound noted on the lateral aspect of the right foot and healed wound on right midfoot Procedures Right 5th digit and 5th metatarsal resection and Left foot ulcer debridement, sharp/excisional Medications and IVs Current Medications Sodium Chloride (NS 1000 ml Inj) 1,000 ml @ 999 mls/hr BOLUS ONCE IV Last administered on 04/29/17 18:51; Start 04/29/17 at 18:15; Stop 04/29/17 at 19:15 ; Status DC Insulin Human NPH 10 units 10 units ONCE ONCE SQ Last administered on 18:50; Start 04/29/17 at 18:30; Stop 04/29/17 at 18:31; Status DC Vancomycin HCl 1000 mg/Sodium Chloride 250 ml @ 250 mls/hr ONCE ONCE IV Last administered on 04/29/17 20:32; Start 04/29/17 at 19:00; Stop 04/29/17 at 19:59 ; Status DC Piperacillin Sod/ Tazobactam Sod (Zosyn 3.375 Gm Premix) 50 ml @ 100 mls/hr ONCE ONCE IV Last administered on 04/29/17 19:59; Start 04/29/17 at 19:00; Stop 04/29/17 at 19:29; Status DC Dextrose (D50w (Vial) Inj) 50 ml UNSCH PRN IV HYPOGLYCEMIA-SEE COMMENTS; Start 04/29/17 at 20:00 Glucagon (Glucagon Inj) 1 mg UNSCH PRN OTHER HYPOGLYCEMIA-SEE COMMENTS; Start 04/29/17 at 20:00 Insulin Aspart 1 1 ACHS SLIDING SCALE SQ Last administered on 05/05/17 06:45 ; Start 04/29/17 at 21:00 Pharmacy Profile Note 0 ml @ 0 mls/hr UNSCH OTHER ; Start 04/29/17 at 20:00 Cefepime HCl 1000 mg/Sodium Chloride 100 ml @ 200 mls/hr Q12H IV Last administered on 05/04/17 21:38; Start 04/30/17 at 09:00 Sodium Chloride (NS 1000 ml Inj) 1,000 ml @ 60 mls/hr [id number] IV Last administered on 05/04/17 06:31; Start 04/29/17 at 19:48 Sodium Chloride (NS Flush) 2 ml UNSCH PRN IV FLUSH FLUSH AFTER USING IV ACCESS ; Start 04/29/17 at 20:00 Sodium Chloride (NS Flush) 2 ml BID IV FLUSH Last administered on 05/03/17 22: 19; Start 04/29/17 at 21:00 Ondansetron HCl (Zofran Inj) 4 mg Q6H PRN IVP NAUSEA OR VOMITING Last administered on 04/29/17 22:44; Start 04/29/17 at 20:00 Acetaminophen (Tylenol) 650 mg Q6H PRN PO FEVER/PAIN SCALE 1 TO 2 Last administered on 05/04/17 06:27; Start 04/29/17 at 20:00 Acetaminophen/ Hydrocodone Bitart ([place] 5-325 Mg) 1 tab Q4H PRN PO PAIN SCALE 3 TO 5 Last administered on 05/04/17 16:32; Start 04/29/17 at 20:00 Morphine Sulfate (Morphine Inj) 2 mg Q3H PRN IV Pain 6-10 Last administered on 04/30/17 14:40; Start 04/29/17 at 20:00 Senna/Docusate Sodium (Inessa-Colace) 1 tab BID PO Last administered on 22:20; Start 04/29/17 at 21:00 Magnesium Hydroxide (Milk Of Magnesia Liq) 30 ml Q12H PRN PO MILD - MODERATE CONSTIPATION; Start 04/29/17 at 20:00 Sennosides (Senokot) 17.2 mg Q12H PRN PO MODERATE - SEVERE CONSTIPATION; Start 04/29/17 at 20:00 Bisacodyl (Dulcolax Supp) 10 mg DAILY PRN RECTAL SEVERE CONSITIPATION; Start at 20:00 Lactulose (Lactulose Liq) 30 ml DAILY PRN PO SEVERE CONSITIPATION; Start at 20:00 Aspirin (Ecotrin Ec) 81 mg DAILY PO Last administered on 05/04/17 08:39; Start 04/30/17 at 09:00 Fluoxetine HCl (PROzac) 40 mg DAILY PO Last administered on 05/04/17 08:39; Start 04/30/17 at 09:00 Insulin Detemir (Levemir Inj) 45 units DAILY SQ Last administered on 05/04/17 08:44; Start 04/30/17 at 09:00; Stop 05/04/17 at 11:20; Status DC Pravastatin Sodium (Pravachol) 40 mg DAILY PO Last administered on 05/04/17 08 :39; Start 04/30/17 at 09:00 Multivitamins (Theragran) 1 tab DAILY PO Last administered on 05/04/17 08:39; Start 04/30/17 at 09:00 Heparin Sodium (Porcine) 5000 units 5,000 units Q12HR SQ Last administered on 21:38; Start 04/30/17 at 09:00 Vancomycin HCl 500 mg/Sodium Chloride 100 ml @ 200 mls/hr ONCE ONCE IV Last administered on 04/30/17 00:05; Start 04/29/17 at 23:00; Stop 04/29/17 at 23:29 ; Status DC Vancomycin HCl/ Sodium Chloride (Vancomycin Inj/ NS 500 ml Inj) 515 ml @ 257.5 mls/ hr Q8H IV Last administered on 05/02/17 13:22; Start 04/30/17 at 12:00; Stop 05/02/17 at 16:01; Status DC Miscellaneous Information SPECIFIC LAB TO BE DRAWN:VA... ONCE ONCE .XX Last administered on 05/01/17 11:45; Start 05/01/17 at 11:45; Stop 05/01/17 at 11:46 ; Status DC Pantoprazole Sodium (Protonix) 40 mg DAILY PO Last administered on 05/04/17 08 :39; Start 04/30/17 at 14:00 Calcium Carbonate (Tums Chew) 500 mg Q12HR PRN CHEW DYSPEPSIA Last administered on 04/30/17 14:37; Start 04/30/17 at 14:00 Gabapentin (Neurontin) 600 mg TID PO Last administered on 05/04/17 16:32; Start 04/30/17 at 18:00 Miscellaneous Information SPECIFIC LAB TO BE DRAWN:VANCOMYCIM TROUGH DATE TO... ONCE ONCE .XX ; Start 05/02/17 at 11:45; Stop 05/02/17 at 11:46; Status DC Vancomycin HCl/ Sodium Chloride (Vancomycin Inj/ NS 500 ml Inj) 517 ml @ 257.5 mls/ hr Q12H IV Last administered on 05/05/17 02:28; Start 05/03/17 at 02:00 Miscellaneous Information SPECIFIC LAB TO BE DRAWN:VANCOMY... ONCE ONCE .XX Last administered on 05/04/17 13:45; Start 05/04/17 at 13:45; Stop 05/04/17 at 13:46; Status DC Lactated Ringer's (Lr 1000 ml Inj) 1,000 ml @ 30 mls/hr Q24H PRN IV SEE LABEL COMMENTS; Start 05/03/17 at 02:30; Stop 05/06/17 at 02:29 Povidone Iodine (Betadine 5% Antisepsis Kit) 1 applic MANAGER CLIENT SERVICE PRN EACH NARE SEE LABEL COMMENTS; Start 05/03/17 at 02:30; Stop 05/06/17 at 02:29 Chlorhexidine Gluconate (Chlorhexidine 2% Cloth) 3 pack MANAGER CLIENT SERVICE PRN TOPICAL SEE LABEL COMMENTS; Start 05/03/17 at 02:30; Stop 05/06/17 at 02:29 Bupivacaine HCl (Marcaine Pf 0.5% Inj) 30 ml STK-MED ONCE .ROUTE ; Start at 15:39; Stop 05/03/17 at 15:40; Status DC Bacitracin (Baciguent Oint) 15 applic STK-MED ONCE .ROUTE ; Start 05/03/17 at 15 :39; Stop 05/03/17 at 15:40; Status DC Lidocaine HCl (Xylocaine 1% Inj (50 ml)) 50 ml STK-MED ONCE .ROUTE ; Start 05/03 at 15:40; Stop 05/03/17 at 15:41; Status DC Bupivacaine HCl (Marcaine Pf 0.25% Inj) 30 ml STK-MED ONCE .ROUTE Last administered on 05/03/17 19:29; Start 05/03/17 at 18:22; Stop 05/03/17 at 18:23 ; Status DC Fentanyl Citrate (fentaNYL INJ) 100 mcg STK-MED ONCE .ROUTE ; Start 05/03/17 at 20:00; Stop 05/03/17 at 20:01; Status DC Miscellaneous Information ALL NURSING DEPARTME... UNSCH PRN .XX SEE LABEL COMMENTS; Start 05/03/17 at 21:00; Stop 05/04/17 at 20:59; Status DC Insulin Detemir (Levemir Inj) 48 units DAILY SQ ; Start 05/05/17 at 09:00 A/P Assessment and Plan A/P 1. Sepsis due to right foot infection/ possible osteomyelitis tumor localization with 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 s/p Right 5th digit and 5th metatarsal resection and Left foot ulcer debridement, sharp/excisional- f/u the pathology and culture. continue broad-spectrum IV antibiotics and pain control- blood cultures negative so far. arterial doppler unremarkable. podiatry following. 2. acute kidney injury- improved- will monitor. 3. DM: not optimally controlled- Hgb A1c 9.2- . Hold Metformin for now in light of renal insufficiency and sepsis. increased levemir and will continue Sliding scale w/ Accu-Checks. will monitor and adjust the insulin regimen as needed. 4. DVT Prophylaxis: Heparin sq Discharge Planning dc home when cleared by podiatry. Teja Cleveland MD May 05, 2017 08:36
[2017-05-05] MEDS: SODIUM CHLORIDE 0.9% FLUSH 10 ML FLUSH IV FLUSH SCH ×2 (09:00→20:00)
[2017-05-05] MEDS: MULTIVITAMIN TAB PO SCH (10:23)
[2017-05-05] MEDS: PRAVASTATIN SOD 40 MG TAB PO SCH (10:23)
[2017-05-05] MEDS: GABAPENTIN 300 MG CAP PO SCH ×3 (10:23→17:28)
[2017-05-05] MEDS: ASPIRIN EC 81 MG TABEC PO SCH (10:23)
[2017-05-05] MEDS: FLUoxetine HCL 20 MG CAP PO SCH (10:23)
[2017-05-05] MEDS: INSULIN DETEMIR 100 UNITS/ML VIAL SQ SCH (10:24)
[2017-05-05] MEDS: HEPARIN SODIUM - SQ 10,000 UNITS/ML VIAL SQ SCH ×2 (10:25→19:59)
[2017-05-05] MEDS: PANTOPRAZOLE SOD 40 MG DELAYED RELEASE TAB PO SCH (10:26)
[2017-05-05] MEDS: CEFEPIME INJ 1,000 MG in SODIUM CHLORIDE 0.9% INJ 100 ML IV SCH ×2 (10:27→19:59)
[2017-05-05] MEDS: DOCUSATE SODIUM 50 MG/SENNA 8.6 MG TAB PO SCH ×2 (10:27→19:59)
[2017-05-05] MEDS: ACETAMINOPHEN/HYDROcodone 325 MG/5 MG TAB PO PRN ×2 (10:31→19:58)
--- NOTE | 2017-05-05 11:00 | MP ---
cc: SUDHA TANG DP DATE OF SURGERY 05/03/2017 PREOPERATIVE DIAGNOSIS Right foot chronic ulceration, fifth metatarsal osteomyelitis and fifth digit osteomyelitis as well as left foot ulceration. POSTOPERATIVE DIAGNOSIS Right foot chronic ulceration, fifth metatarsal osteomyelitis and fifth digit osteomyelitis as well as left foot ulceration. PROCEDURES PERFORMED Right fifth digit amputation and fifth metatarsal resection, left foot ulcer debridement, sharp excisional full-thickness. COMPLICATIONS None ESTIMATED BLOOD LOSS 75 mL SPECIMEN Right fifth digit and fifth metatarsal for pathology, check proximal part margin for osteomyelitis. Deep bone culture taken at this area as well. ANESTHESIA General 10 cc of 0.25% Marcaine plain infiltrated across the amputation site IV FLUIDS 500 mL in total DISPOSITION The patient return to the floor, monitor wound and culture. Continue IV antibiotics at this point. JUSTIFICATION FOR THE PROCEDURE This is a 46-year-old male. Bone scan showed osteomyelitis, chronic ulceration, history of metatarsal resections three and four. The fifth metatarsal was actually poking out through the skin. We devised a plan for resection of the fifth ray leaving the base of the fifth metatarsal and the insertion of the peroneus brevis tendon. The patient may eventually need a transmetatarsal amputation, however at this point, he wishes to salvage the majority of his foot. The patient was counseled in great detail on the need for strict hyperglycemic control and postoperative protocol being non-weightbearing. He states he understood. The left foot was showing signs of a pre-ulcerative ulcerative callous that needs to be debrided. PROCEDURE IN DETAIL Under mild sedation, the patient was brought into the operating room and placed on the operating table in the supine position. Following the induction of general anesthesia, the bilateral extremities were examined. The left foot was then prepped with alcohol utilizing a 15 blade and a pickup. A sharp excisional debridement took place to viable bleeding tissue at the third and fourth metatarsal head measuring approximately 1 cm with 3 mm of depth. A bandage placed. The patient's right foot was then scrubbed, prepped and draped in the usual aseptic fashion. The foot was elevated, exsanguinated and the previously placed mid ankle tourniquet was inflated to 250 mmHg. An elliptical incision took place encompassing a large lateral ulcer on the fifth MPJ. This was a fishmouth type incision down the level of the fifth MPJ joint capsule disarticulating the fifth digit. Sharp and blunt dissection was carried down subperiosteal to the base of the fifth metatarsal utilizing power instrumentation. The bone was then resected at this level. The proximal portion of the bone appeared to be hard with good cortical nature and no obvious clinical signs of osteo. A culture was taken of this bone at this point and the specimen was passed off the pathological analysis. No deep tunnel tracking noted at the level the amputation site. There was noted to be mixed fibrotic tissue which was debrided to viable bleeding tissue. The wound was flushed with copious amounts of normal saline. The central aspect of the patient's foot was examined. There was noted to be an invaginated ulcer that appeared to go to the dermal layer. This was then curetted and rongeured to viable bleeding tissue. The wounds were then flushed with copious amounts of normal saline. The Pneumatic tourniquet was dropped. There was a prompt hyperemic response to all digits without any delayed capillary fill time aside from the previously amputated digit, the fifth was absent. Punctate bleeding noted. No pulsatile arterial bleeding. Bovie ligation of vessels took place. The wound was then closed utilizing combination of Vicryl and nylon. A bulky bandage was placed. The patient transferred OR to PACU with all vital signs stable. Upon putting on the final bandage, 10 cc of 0.25% Marcaine plain was infiltrated across the amputation site. The patient will remain non-weightbearing to the right. PT ordered. A controlled ankle motion fracture boot ordered for protection and eventual heel weight-bear. I will see the patient within the next one to two days to monitor the wound. AUDELIA Ivory /7:59 PM /10:56 AM
--- NOTE | 2017-05-05 17:23 | PD.POD ---
Subjective Pain score: 2 Remarks Right foot doing well Past Med/Surg/Social History Social History Smoking Status: Current Every Day Smoker Objective Vital Signs Vital Signs Date Time Temp Pulse Resp B/P Pulse Ox O2 Delivery O2 Flow Rate FiO2 05/05/17 16:00 96.9 72 17 126/79 96 05/05/17 12:00 97.2 66 17 148/78 97 05/05/17 11:26 96 21 05/05/17 08:00 96.1 67 16 119/72 95 05/05/17 04:00 96.8 68 20 127/75 97 05/05/17 00:00 97.3 69 20 114/62 94 05/04/17 20:15 95 Room Air 05/04/17 20:00 97.2 69 20 140/77 95 05/04/17 17:49 21 Coded Allergies: No Known Allergies (Unverified , 04/29/17) Medications and IVs Administered Medications Medications (Trade) Dose Ordered Sig/Adams Route PRN Reason Start Time Stop Time Status Last Admin Dose Admin Cefepime HCl 1000 mg/Sodium Chloride 100 ml @ 200 mls/hr Q12H IV 04/30/17 09:00 05/05/17 10:27 Sodium Chloride (NS 1000 ml Inj) 1,000 ml @ 60 mls/hr [id number] IV 04/29/17 19:48 05/04/17 06:31 Sodium Chloride (NS Flush) 2 ml BID IV FLUSH 04/29/17 21:00 05/03/17 22:19 Ondansetron HCl (Zofran Inj) 4 mg Q6H PRN IVP NAUSEA OR VOMITING 04/29/17 20:00 04/29/17 22:44 Acetaminophen (Tylenol) 650 mg Q6H PRN PO FEVER/PAIN SCALE 1 TO 2 04/29/17 20:00 05/04/17 06:27 Acetaminophen/ Hydrocodone Bitart ([place] 5-325 Mg) 1 tab Q4H PRN PO PAIN SCALE 3 TO 5 04/29/17 20:00 05/05/17 10:31 Morphine Sulfate (Morphine Inj) 2 mg Q3H PRN IV Pain 6-10 04/29/17 20:00 04/30/17 14:40 Senna/Docusate Sodium (Inessa-Colace) 1 tab BID PO 04/29/17 21:00 05/05/17 10:27 Aspirin (Ecotrin Ec) 81 mg DAILY PO 04/30/17 09:00 05/05/17 10:23 Fluoxetine HCl (PROzac) 40 mg DAILY PO 04/30/17 09:00 05/05/17 10:23 Pravastatin Sodium (Pravachol) 40 mg DAILY PO 04/30/17 09:00 05/05/17 10:23 Multivitamins (Theragran) 1 tab DAILY PO 04/30/17 09:00 05/05/17 10:23 Heparin Sodium (Porcine) (Heparin Inj) 5,000 units Q12HR SQ 04/30/17 09:00 05/05/17 10:25 Pantoprazole Sodium (Protonix) 40 mg DAILY PO 04/30/17 14:00 05/05/17 10:26 Calcium Carbonate (Tums Chew) 500 mg Q12HR PRN CHEW DYSPEPSIA 04/30/17 14:00 04/30/17 14:37 Gabapentin 600 mg 600 mg TID PO 04/30/17 18:00 05/05/17 11:54 Vancomycin HCl/ Sodium Chloride (Vancomycin Inj/ NS 500 ml Inj) 517 ml @ 257.5 mls/ hr Q12H IV 05/03/17 02:00 05/05/17 15:46 Insulin Detemir (Levemir Inj) 48 units DAILY SQ 05/05/17 09:00 05/05/17 10:24 Other Results Laboratory Tests Test 05/05/17 05:32 White Blood Count 9.5 TH/MM3 Red Blood Count 4.25 MIL/MM3 Hemoglobin 11.9 GM/DL Hematocrit 34.5 % Mean Corpuscular Volume 81.1 FL Mean Corpuscular Hemoglobin 27.9 PG Mean Corpuscular Hemoglobin 34.4 % Concent Red Cell Distribution Width 14.0 % Platelet Count 401 TH/MM3 Mean Platelet Volume 8.4 FL Neutrophils (%) (Auto) 56.9 % Lymphocytes (%) (Auto) 27.2 % Monocytes (%) (Auto) 12.3 % Eosinophils (%) (Auto) 2.7 % Basophils (%) (Auto) 0.9 % Neutrophils # (Auto) 5.4 TH/MM3 Lymphocytes # (Auto) 2.6 TH/MM3 Monocytes # (Auto) 1.2 TH/MM3 Eosinophils # (Auto) 0.3 TH/MM3 Basophils # (Auto) 0.1 TH/MM3 CBC Comment DIFF FINAL Differential Comment Laboratory Tests Test 05/04/17 05/05/17 05:15 05:32 Creatinine 0.77 MG/DL 0.72 MG/DL Estimat Glomerular Filtration 108 ML/MIN 117 ML/MIN Rate Sodium Level 140 MEQ/L Potassium Level 3.5 MEQ/L Chloride Level 104 MEQ/L Carbon Dioxide Level 29.9 MEQ/L Anion Gap 6 MEQ/L Blood Urea Nitrogen 9 MG/DL Random Glucose 160 MG/DL Calcium Level 8.3 MG/DL Total Bilirubin 0.2 MG/DL Aspartate Amino Transf 15 U/L (AST/SGOT) Alanine Aminotransferase 15 U/L (ALT/SGPT) Alkaline Phosphatase 107 U/L Total Protein 6.3 GM/DL Albumin 2.4 GM/DL Microbiology Date/Time Procedure Status Source Growth 05/03/17 20:46 Gram Stain - Final Resulted Wound Foot 05/03/17 20:46 Wound Culture - Preliminary Resulted Staphylococcus Aureus Proteus Mirabilis 05/03/17 20:46 Acid Fast Stain - Final Resulted Wound Foot NO ACID FAST BACILLI SEEN 05/03/17 20:46 Mycobacterial Culture Resulted Wound Foot Pending 05/03/17 20:46 Fungal Smear - Final Resulted Wound Foot NO FUNGAL ELEMENTS SEEN. 05/03/17 20:46 Fungal Culture Resulted Wound Foot Pending bone path pending Physical Exam Remarks Right foot 5th ray resection with suture intact, deep plantar ulcer with no SOI , no swelling or redness above the ankle, toes 1-4 pink. Left foot without infection pre ulcer lesion noted- uncomplicated. Assessment & Plan A/P Right foot ulcer OM 5th digit and metatarsal. Left foot DFU neuropathic ulcer/pre ulcer. SP right 5th digit and 5th Ray Amp 05/03 Doing well, reviewed labs. Awaiting margins to see if strap cutter IV ABX needed, prefer 2 weeks IV ABX minimum. Will FU 2-3 days wound check. Continue nonWB. Willi Drummond DPM May 05, 2017 17:23
[2017-05-06 00:31] VITALS: BP 130/74; PULSE 67; RESP 18; TEMP 96.3; O2SAT 96
[2017-05-06] MEDS: SODIUM CHLOR 0.9% 1000 ML INJ 1,000 ML IV SCH ×2 (00:34→03:07)
[2017-05-06] MEDS: VANCOMYCIN INJ 1,700 MG in SODIUM CHLORID 0.9% 500 ML INJ 500 ML IV SCH ×2 (03:07→14:38)
[2017-05-06] MEDS: INSULIN ASPART SUPPLEMENTAL SCALE SQ SCH ×4 (06:21→21:00)
[2017-05-06 08:00] VITALS: BP 117/72; PULSE 66; RESP 16; TEMP 95.8; O2SAT 97
[2017-05-06] MEDS: DOCUSATE SODIUM 50 MG/SENNA 8.6 MG TAB PO SCH ×2 (09:00→20:51)
[2017-05-06] MEDS: SODIUM CHLORIDE 0.9% FLUSH 10 ML FLUSH IV FLUSH SCH ×2 (09:00→20:51)
[2017-05-06] MEDS: ASPIRIN EC 81 MG TABEC PO SCH (09:59)
[2017-05-06] MEDS: PRAVASTATIN SOD 40 MG TAB PO SCH (09:59)
[2017-05-06] MEDS: PANTOPRAZOLE SOD 40 MG DELAYED RELEASE TAB PO SCH (09:59)
[2017-05-06] MEDS: GABAPENTIN 300 MG CAP PO SCH ×3 (09:59→17:30)
[2017-05-06] MEDS: FLUoxetine HCL 20 MG CAP PO SCH (09:59)
[2017-05-06] MEDS: MULTIVITAMIN TAB PO SCH (09:59)
[2017-05-06] MEDS: CEFEPIME INJ 1,000 MG in SODIUM CHLORIDE 0.9% INJ 100 ML IV SCH ×2 (10:00→20:51)
[2017-05-06] MEDS: HEPARIN SODIUM - SQ 10,000 UNITS/ML VIAL SQ SCH ×2 (10:00→20:51)
[2017-05-06] MEDS: INSULIN DETEMIR 100 UNITS/ML VIAL SQ SCH (10:07)
[2017-05-06] MEDS: ACETAMINOPHEN 325 MG TAB PO PRN (10:13)
--- NOTE | 2017-05-06 10:15 | HHI.PR ---
Subjective Remarks resting comfortably with no distress. pain is controlled. no fever. d/w the RN and no acute issues over night. Objective Vitals Vital Signs Date Time Temp Pulse Resp B/P Pulse Ox O2 Delivery O2 Flow Rate FiO2 05/06/17 08:00 95.8 66 16 117/72 97 05/06/17 00:31 96.3 67 18 130/74 96 05/05/17 21:00 20 05/05/17 20:00 Room Air 05/05/17 20:00 96.9 79 18 145/85 97 05/05/17 16:00 96.9 72 17 126/79 96 05/05/17 12:00 97.2 66 17 148/78 97 05/05/17 11:26 96 21 I/O 05/05/17 05/05/17 05/05/17 05/06/17 05/06/17 05/06/17 07:00 15:00 23:00 07:00 15:00 23:00 Intake Total 1376 ml 1680 ml 480 ml 1400 ml Output Total 600 ml 800 ml 1000 ml Balance 776 ml 1680 ml -320 ml 400 ml Intake Oral 480 ml 1680 ml 480 ml 360 ml IV Total 896 ml 1040 ml Output Urine Total 600 ml 800 ml 1000 ml # Voids 1 5 # Bowel Movements 1 Result Diagram: 05/05/17 0532 05/06/17 0515 Imaging Last Impressions Tumor Localization 05/01/17 0000 Signed Impressions: Service Date/Time: Monday, May 01, 2017 11:45 - CONCLUSION: 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 Yong Bowling MD Lower Extremity Ultrasound 04/29/171612 Signed Impressions: Service Date/Time: Saturday, April 29, 2017 18:11 - CONCLUSION: 1. No DVT. 2. Right groin adenopathy. Jerod Velasquez Jr., MD Foot X-Ray 04/29/171612 Signed Impressions: Service Date/Time: Saturday, April 29, 2017 17:00 - CONCLUSION: 1. Post surgical changes with possible osteomyelitis involving the distal third and fourth metatarsals. [place] MD Chest X-Ray 04/29/171612 Signed Impressions: Service Date/Time: Saturday, April 29, 2017 17:07 - CONCLUSION: 1. No acute cardiopulmonary disease. Ramiro Dan MD Objective Remarks GENERAL: This is a well-nourished, well-developed patient, in no apparent distress. CARDIOVASCULAR: Regular rate and regular rhythm without murmurs, gallops, or rubs. RESPIRATORY: Clear to auscultation. Breath sounds equal bilaterally. No wheezes , rales, or rhonchi. GASTROINTESTINAL: Abdomen soft, non-tender, nondistended. Normal, active bowel sounds MUSCULOSKELETAL: right foot covered with clean dressing. NEURO: Alert & Oriented x4 to person, place, time, situation. Moves all ext x4 Procedures Right 5th digit and 5th metatarsal resection and Left foot ulcer debridement, sharp/excisional Medications and IVs Current Medications Sodium Chloride (NS 1000 ml Inj) 1,000 ml @ 999 mls/hr BOLUS ONCE IV Last administered on 04/29/17 18:51; Start 04/29/17 at 18:15; Stop 04/29/17 at 19:15 ; Status DC Insulin Human NPH 10 units 10 units ONCE ONCE SQ Last administered on 18:50; Start 04/29/17 at 18:30; Stop 04/29/17 at 18:31; Status DC Vancomycin HCl 1000 mg/Sodium Chloride 250 ml @ 250 mls/hr ONCE ONCE IV Last administered on 04/29/17 20:32; Start 04/29/17 at 19:00; Stop 04/29/17 at 19:59 ; Status DC Piperacillin Sod/ Tazobactam Sod (Zosyn 3.375 Gm Premix) 50 ml @ 100 mls/hr ONCE ONCE IV Last administered on 04/29/17 19:59; Start 04/29/17 at 19:00; Stop 04/29/17 at 19:29; Status DC Dextrose (D50w (Vial) Inj) 50 ml UNSCH PRN IV HYPOGLYCEMIA-SEE COMMENTS; Start 04/29/17 at 20:00 Glucagon (Glucagon Inj) 1 mg UNSCH PRN OTHER HYPOGLYCEMIA-SEE COMMENTS; Start 04/29/17 at 20:00 Insulin Aspart 1 1 ACHS SLIDING SCALE SQ Last administered on 05/06/17 06:21 ; Start 04/29/17 at 21:00 Pharmacy Profile Note 0 ml @ 0 mls/hr UNSCH OTHER ; Start 04/29/17 at 20:00 Cefepime HCl 1000 mg/Sodium Chloride 100 ml @ 200 mls/hr Q12H IV Last administered on 05/06/17 10:00; Start 04/30/17 at 09:00 Sodium Chloride (NS 1000 ml Inj) 1,000 ml @ 60 mls/hr [id number] IV Last administered on 05/06/17 03:07; Start 04/29/17 at 19:48 Sodium Chloride (NS Flush) 2 ml UNSCH PRN IV FLUSH FLUSH AFTER USING IV ACCESS ; Start 04/29/17 at 20:00 Sodium Chloride (NS Flush) 2 ml BID IV FLUSH Last administered on 05/03/17 22: 19; Start 04/29/17 at 21:00 Ondansetron HCl (Zofran Inj) 4 mg Q6H PRN IVP NAUSEA OR VOMITING Last administered on 04/29/17 22:44; Start 04/29/17 at 20:00 Acetaminophen (Tylenol) 650 mg Q6H PRN PO FEVER/PAIN SCALE 1 TO 2 Last administered on 05/04/17 06:27; Start 04/29/17 at 20:00 Acetaminophen/ Hydrocodone Bitart ([place] 5-325 Mg) 1 tab Q4H PRN PO PAIN SCALE 3 TO 5 Last administered on 05/05/17 19:58; Start 04/29/17 at 20:00 Morphine Sulfate (Morphine Inj) 2 mg Q3H PRN IV Pain 6-10 Last administered on 04/30/17 14:40; Start 04/29/17 at 20:00 Senna/Docusate Sodium (Inessa-Colace) 1 tab BID PO Last administered on 10:27; Start 04/29/17 at 21:00 Magnesium Hydroxide (Milk Of Magnesia Liq) 30 ml Q12H PRN PO MILD - MODERATE CONSTIPATION; Start 04/29/17 at 20:00 Sennosides (Senokot) 17.2 mg Q12H PRN PO MODERATE - SEVERE CONSTIPATION; Start 04/29/17 at 20:00 Bisacodyl (Dulcolax Supp) 10 mg DAILY PRN RECTAL SEVERE CONSITIPATION; Start at 20:00 Lactulose (Lactulose Liq) 30 ml DAILY PRN PO SEVERE CONSITIPATION; Start at 20:00 Aspirin (Ecotrin Ec) 81 mg DAILY PO Last administered on 05/06/17 09:59; Start 04/30/17 at 09:00 Fluoxetine HCl (PROzac) 40 mg DAILY PO Last administered on 05/06/17 09:59; Start 04/30/17 at 09:00 Insulin Detemir (Levemir Inj) 45 units DAILY SQ Last administered on 05/04/17 08:44; Start 04/30/17 at 09:00; Stop 05/04/17 at 11:20; Status DC Pravastatin Sodium (Pravachol) 40 mg DAILY PO Last administered on 05/06/17 09 :59; Start 04/30/17 at 09:00 Multivitamins (Theragran) 1 tab DAILY PO Last administered on 05/06/17 09:59; Start 04/30/17 at 09:00 Heparin Sodium (Porcine) 5000 units 5,000 units Q12HR SQ Last administered on 10:00; Start 04/30/17 at 09:00 Vancomycin HCl 500 mg/Sodium Chloride 100 ml @ 200 mls/hr ONCE ONCE IV Last administered on 04/30/17 00:05; Start 04/29/17 at 23:00; Stop 04/29/17 at 23:29 ; Status DC Vancomycin HCl/ Sodium Chloride (Vancomycin Inj/ NS 500 ml Inj) 515 ml @ 257.5 mls/ hr Q8H IV Last administered on 05/02/17 13:22; Start 04/30/17 at 12:00; Stop 05/02/17 at 16:01; Status DC Miscellaneous Information SPECIFIC LAB TO BE DRAWN:VA... ONCE ONCE .XX Last administered on 05/01/17 11:45; Start 05/01/17 at 11:45; Stop 05/01/17 at 11:46 ; Status DC Pantoprazole Sodium (Protonix) 40 mg DAILY PO Last administered on 05/06/17 09 :59; Start 04/30/17 at 14:00 Calcium Carbonate (Tums Chew) 500 mg Q12HR PRN CHEW DYSPEPSIA Last administered on 04/30/17 14:37; Start 04/30/17 at 14:00 Gabapentin (Neurontin) 600 mg TID PO Last administered on 05/06/17 09:59; Start 04/30/17 at 18:00 Miscellaneous Information SPECIFIC LAB TO BE DRAWN:VANCOMYCIM TROUGH DATE TO... ONCE ONCE .XX ; Start 05/02/17 at 11:45; Stop 05/02/17 at 11:46; Status DC Vancomycin HCl/ Sodium Chloride (Vancomycin Inj/ NS 500 ml Inj) 517 ml @ 257.5 mls/ hr Q12H IV Last administered on 05/06/17 03:07; Start 05/03/17 at 02:00 Miscellaneous Information SPECIFIC LAB TO BE DRAWN:VANCOMY... ONCE ONCE .XX Last administered on 05/04/17 13:45; Start 05/04/17 at 13:45; Stop 05/04/17 at 13:46; Status DC Lactated Ringer's (Lr 1000 ml Inj) 1,000 ml @ 30 mls/hr Q24H PRN IV SEE LABEL COMMENTS; Start 05/03/17 at 02:30; Stop 05/06/17 at 02:29; Status DC Povidone Iodine (Betadine 5% Antisepsis Kit) 1 applic CASHIER PAYMENTS RECEIVED PRN EACH NARE SEE LABEL COMMENTS; Start 05/03/17 at 02:30; Stop 05/06/17 at 02:29; Status DC Chlorhexidine Gluconate (Chlorhexidine 2% Cloth) 3 pack CASHIER PAYMENTS RECEIVED PRN TOPICAL SEE LABEL COMMENTS; Start 05/03/17 at 02:30; Stop 05/06/17 at 02:29; Status DC Bupivacaine HCl (Marcaine Pf 0.5% Inj) 30 ml STK-MED ONCE .ROUTE ; Start at 15:39; Stop 05/03/17 at 15:40; Status DC Bacitracin (Baciguent Oint) 15 applic STK-MED ONCE .ROUTE ; Start 05/03/17 at 15 :39; Stop 05/03/17 at 15:40; Status DC Lidocaine HCl (Xylocaine 1% Inj (50 ml)) 50 ml STK-MED ONCE .ROUTE ; Start 05/03 at 15:40; Stop 05/03/17 at 15:41; Status DC Bupivacaine HCl (Marcaine Pf 0.25% Inj) 30 ml STK-MED ONCE .ROUTE Last administered on 05/03/17 19:29; Start 05/03/17 at 18:22; Stop 05/03/17 at 18:23 ; Status DC Fentanyl Citrate (fentaNYL INJ) 100 mcg STK-MED ONCE .ROUTE ; Start 05/03/17 at 20:00; Stop 05/03/17 at 20:01; Status DC Miscellaneous Information ALL NURSING DEPARTME... UNSCH PRN .XX SEE LABEL COMMENTS; Start 05/03/17 at 21:00; Stop 05/04/17 at 20:59; Status DC Insulin Detemir (Levemir Inj) 48 units DAILY SQ Last administered on 05/06/17t 10:07; Start 05/05/17 at 09:00 A/P Assessment and Plan A/P 1. Sepsis due to right foot infection/ possible osteomyelitis tumor localization with 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 s/p Right 5th digit and 5th metatarsal resection and Left foot ulcer debridement, sharp/excisional- f/u the pathology and culture. continue IV antibiotics and pain control- wound culture with MSSA and proteus. arterial doppler unremarkable. podiatry following. 2. acute kidney injury- improved- will monitor. 3. DM: not optimally controlled- Hgb A1c 9.2- . Hold Metformin for now in light of renal insufficiency and sepsis. continue levemir and will continue Sliding scale w/ Accu-Checks. will monitor and adjust the insulin regimen as needed. 4. DVT Prophylaxis: Heparin sq Discharge Planning dc home when cleared by podiatry. Teja Cleveland MD May 06, 2017 10:15
[2017-05-06 12:00] VITALS: BP 109/73; PULSE 78; RESP 14; TEMP 96; O2SAT 97
[2017-05-06 16:00] VITALS: BP 156/84; PULSE 62; RESP 15; TEMP 97.2; O2SAT 99
[2017-05-06 20:00] VITALS: BP 130/82; PULSE 64; RESP 16; TEMP 96.6; O2SAT 96
[2017-05-06] MEDS: ACETAMINOPHEN/HYDROcodone 325 MG/5 MG TAB PO PRN (20:50)
[2017-05-07] VITALS: BP 125/81; PULSE 60; RESP 16; TEMP 96.6; O2SAT 98
[2017-05-07] MEDS: VANCOMYCIN INJ 1,700 MG in SODIUM CHLORID 0.9% 500 ML INJ 500 ML IV SCH (01:00)
[2017-05-07] MEDS: SODIUM CHLOR 0.9% 1000 ML INJ 1,000 ML IV SCH ×2 (01:01→17:54)
[2017-05-07] MEDS: ACETAMINOPHEN/HYDROcodone 325 MG/5 MG TAB PO PRN ×3 (06:32→22:10)
[2017-05-07] MEDS: INSULIN ASPART SUPPLEMENTAL SCALE SQ SCH ×5 (06:33→22:08)
[2017-05-07 08:00] VITALS: BP 140/82; PULSE 65; RESP 15; TEMP 97.7; O2SAT 99
[2017-05-07] MEDS: INSULIN DETEMIR 100 UNITS/ML VIAL SQ SCH (09:00)
[2017-05-07] MEDS: SODIUM CHLORIDE 0.9% FLUSH 10 ML FLUSH IV FLUSH SCH ×2 (09:00→21:00)
[2017-05-07] MEDS: DOCUSATE SODIUM 50 MG/SENNA 8.6 MG TAB PO SCH ×2 (09:00→21:00)
[2017-05-07] MEDS: ASPIRIN EC 81 MG TABEC PO SCH (09:06)
[2017-05-07] MEDS: FLUoxetine HCL 20 MG CAP PO SCH (09:06)
[2017-05-07] MEDS: MULTIVITAMIN TAB PO SCH (09:06)
[2017-05-07] MEDS: HEPARIN SODIUM - SQ 10,000 UNITS/ML VIAL SQ SCH ×2 (09:06→22:09)
[2017-05-07] MEDS: PRAVASTATIN SOD 40 MG TAB PO SCH (09:06)
[2017-05-07] MEDS: GABAPENTIN 300 MG CAP PO SCH ×3 (09:06→17:54)
[2017-05-07] MEDS: PANTOPRAZOLE SOD 40 MG DELAYED RELEASE TAB PO SCH (09:06)
[2017-05-07] MEDS: CEFEPIME INJ 1,000 MG in SODIUM CHLORIDE 0.9% INJ 100 ML IV SCH (09:07)
--- NOTE | 2017-05-07 09:26 | HHI.PR ---
Subjective Remarks resting comfortably with no distress. no fever.pain is controlled. Objective Vitals Vital Signs Date Time Temp Pulse Resp B/P Pulse Ox O2 Delivery O2 Flow Rate FiO2 05/07/17 00:00 96.6 60 16 125/81 98 05/06/17 21:50 18 05/06/17 20:00 96.6 64 16 130/82 96 05/06/17 19:30 Room Air 05/06/17 16:00 97.2 62 15 156/84 99 05/06/17 12:00 96.0 78 14 109/73 97 I/O 05/06/17 05/06/17 05/06/17 05/07/17 05/07/17 05/07/17 07:00 15:00 23:00 07:00 15:00 23:00 Intake Total 1400 ml 720 ml 1377 ml 1645 ml Output Total 1000 ml 925 ml 700 ml 250 ml Balance 400 ml -205 ml 677 ml 1395 ml Intake Oral 360 ml 720 ml 360 ml 240 ml IV Total 1040 ml 1017 ml 1405 ml Output Urine Total 1000 ml 925 ml 700 ml 250 ml # Breastfeedings 7 # Bowel Movements 1 1 0 Result Diagram: 05/05/17 0532 05/06/17 0515 Imaging Last Impressions Tumor Localization 05/01/17 0000 Signed Impressions: Service Date/Time: Monday, May 01, 2017 11:45 - CONCLUSION: 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 Yong Bowling MD Lower Extremity Ultrasound 04/29/171612 Signed Impressions: Service Date/Time: Saturday, April 29, 2017 18:11 - CONCLUSION: 1. No DVT. 2. Right groin adenopathy. Jerod Velasquez Jr., MD Foot X-Ray 04/29/171612 Signed Impressions: Service Date/Time: Saturday, April 29, 2017 17:00 - CONCLUSION: 1. Post surgical changes with possible osteomyelitis involving the distal third and fourth metatarsals. [place] MD Chest X-Ray 04/29/171612 Signed Impressions: Service Date/Time: Saturday, April 29, 2017 17:07 - CONCLUSION: 1. No acute cardiopulmonary disease. Ramiro Dan MD Objective Remarks GENERAL: This is a well-nourished, well-developed patient, in no apparent distress. CARDIOVASCULAR: Regular rate and regular rhythm without murmurs, gallops, or rubs. RESPIRATORY: Clear to auscultation. Breath sounds equal bilaterally. No wheezes , rales, or rhonchi. GASTROINTESTINAL: Abdomen soft, non-tender, nondistended. Normal, active bowel sounds MUSCULOSKELETAL: right foot covered with clean dressing. NEURO: Alert & Oriented x4 to person, place, time, situation. Moves all ext x4 Procedures Right 5th digit and 5th metatarsal resection and Left foot ulcer debridement, sharp/excisional Medications and IVs Current Medications Sodium Chloride (NS 1000 ml Inj) 1,000 ml @ 999 mls/hr BOLUS ONCE IV Last administered on 04/29/17 18:51; Start 04/29/17 at 18:15; Stop 04/29/17 at 19:15 ; Status DC Insulin Human NPH 10 units 10 units ONCE ONCE SQ Last administered on 18:50; Start 04/29/17 at 18:30; Stop 04/29/17 at 18:31; Status DC Vancomycin HCl 1000 mg/Sodium Chloride 250 ml @ 250 mls/hr ONCE ONCE IV Last administered on 04/29/17 20:32; Start 04/29/17 at 19:00; Stop 04/29/17 at 19:59 ; Status DC Piperacillin Sod/ Tazobactam Sod (Zosyn 3.375 Gm Premix) 50 ml @ 100 mls/hr ONCE ONCE IV Last administered on 04/29/17 19:59; Start 04/29/17 at 19:00; Stop 04/29/17 at 19:29; Status DC Dextrose (D50w (Vial) Inj) 50 ml UNSCH PRN IV HYPOGLYCEMIA-SEE COMMENTS; Start 04/29/17 at 20:00 Glucagon (Glucagon Inj) 1 mg UNSCH PRN OTHER HYPOGLYCEMIA-SEE COMMENTS; Start 04/29/17 at 20:00 Insulin Aspart 1 1 ACHS SLIDING SCALE SQ Last administered on 05/06/17 21:00 ; Start 04/29/17 at 21:00 Pharmacy Profile Note 0 ml @ 0 mls/hr UNSCH OTHER ; Start 04/29/17 at 20:00 Cefepime HCl 1000 mg/Sodium Chloride 100 ml @ 200 mls/hr Q12H IV Last administered on 05/07/17 09:07; Start 04/30/17 at 09:00 Sodium Chloride (NS 1000 ml Inj) 1,000 ml @ 60 mls/hr [id number] IV Last administered on 05/07/17 01:01; Start 04/29/17 at 19:48 Sodium Chloride (NS Flush) 2 ml UNSCH PRN IV FLUSH FLUSH AFTER USING IV ACCESS ; Start 04/29/17 at 20:00 Sodium Chloride (NS Flush) 2 ml BID IV FLUSH Last administered on 05/07/17 09: 00; Start 04/29/17 at 21:00 Ondansetron HCl (Zofran Inj) 4 mg Q6H PRN IVP NAUSEA OR VOMITING Last administered on 04/29/17 22:44; Start 04/29/17 at 20:00 Acetaminophen (Tylenol) 650 mg Q6H PRN PO FEVER/PAIN SCALE 1 TO 2 Last administered on 05/06/17 10:13; Start 04/29/17 at 20:00 Acetaminophen/ Hydrocodone Bitart ([place] 5-325 Mg) 1 tab Q4H PRN PO PAIN SCALE 3 TO 5 Last administered on 05/07/17 06:32; Start 04/29/17 at 20:00 Morphine Sulfate (Morphine Inj) 2 mg Q3H PRN IV Pain 6-10 Last administered on 04/30/17 14:40; Start 04/29/17 at 20:00 Senna/Docusate Sodium (Inessa-Colace) 1 tab BID PO Last administered on 10:27; Start 04/29/17 at 21:00 Magnesium Hydroxide (Milk Of Magnesia Liq) 30 ml Q12H PRN PO MILD - MODERATE CONSTIPATION; Start 04/29/17 at 20:00 Sennosides (Senokot) 17.2 mg Q12H PRN PO MODERATE - SEVERE CONSTIPATION; Start 04/29/17 at 20:00 Bisacodyl (Dulcolax Supp) 10 mg DAILY PRN RECTAL SEVERE CONSITIPATION; Start at 20:00 Lactulose (Lactulose Liq) 30 ml DAILY PRN PO SEVERE CONSITIPATION; Start at 20:00 Aspirin (Ecotrin Ec) 81 mg DAILY PO Last administered on 05/07/17 09:06; Start 04/30/17 at 09:00 Fluoxetine HCl (PROzac) 40 mg DAILY PO Last administered on 05/07/17 09:06; Start 04/30/17 at 09:00 Insulin Detemir (Levemir Inj) 45 units DAILY SQ Last administered on 05/04/17 08:44; Start 04/30/17 at 09:00; Stop 05/04/17 at 11:20; Status DC Pravastatin Sodium (Pravachol) 40 mg DAILY PO Last administered on 05/07/17 09: 06; Start 04/30/17 at 09:00 Multivitamins (Theragran) 1 tab DAILY PO Last administered on 05/07/17 09:06; Start 04/30/17 at 09:00 Heparin Sodium (Porcine) 5000 units 5,000 units Q12HR SQ Last administered on 09:06; Start 04/30/17 at 09:00 Vancomycin HCl 500 mg/Sodium Chloride 100 ml @ 200 mls/hr ONCE ONCE IV Last administered on 04/30/17 00:05; Start 04/29/17 at 23:00; Stop 04/29/17 at 23:29 ; Status DC Vancomycin HCl/ Sodium Chloride (Vancomycin Inj/ NS 500 ml Inj) 515 ml @ 257.5 mls/ hr Q8H IV Last administered on 05/02/17 13:22; Start 04/30/17 at 12:00; Stop 05/02/17 at 16:01; Status DC Miscellaneous Information SPECIFIC LAB TO BE DRAWN:VA... ONCE ONCE .XX Last administered on 05/01/17 11:45; Start 05/01/17 at 11:45; Stop 05/01/17 at 11:46 ; Status DC Pantoprazole Sodium (Protonix) 40 mg DAILY PO Last administered on 05/07/17 09: 06; Start 04/30/17 at 14:00 Calcium Carbonate (Tums Chew) 500 mg Q12HR PRN CHEW DYSPEPSIA Last administered on 04/30/17 14:37; Start 04/30/17 at 14:00 Gabapentin (Neurontin) 600 mg TID PO Last administered on 05/07/17 09:06; Start 04/30/17 at 18:00 Miscellaneous Information SPECIFIC LAB TO BE DRAWN:VANCOMYCIM TROUGH DATE TO... ONCE ONCE .XX ; Start 05/02/17 at 11:45; Stop 05/02/17 at 11:46; Status DC Vancomycin HCl/ Sodium Chloride (Vancomycin Inj/ NS 500 ml Inj) 517 ml @ 257.5 mls/ hr Q12H IV Last administered on 05/07/17 01:00; Start 05/03/17 at 02:00 Miscellaneous Information SPECIFIC LAB TO BE DRAWN:VANCOMY... ONCE ONCE .XX Last administered on 05/04/17 13:45; Start 05/04/17 at 13:45; Stop 05/04/17 at 13:46; Status DC Lactated Ringer's (Lr 1000 ml Inj) 1,000 ml @ 30 mls/hr Q24H PRN IV SEE LABEL COMMENTS; Start 05/03/17 at 02:30; Stop 05/06/17 at 02:29; Status DC Povidone Iodine (Betadine 5% Antisepsis Kit) 1 applic PARI MUTUEL TICKET CASHIER PRN EACH NARE SEE LABEL COMMENTS; Start 05/03/17 at 02:30; Stop 05/06/17 at 02:29; Status DC Chlorhexidine Gluconate (Chlorhexidine 2% Cloth) 3 pack PARI MUTUEL TICKET CASHIER PRN TOPICAL SEE LABEL COMMENTS; Start 05/03/17 at 02:30; Stop 05/06/17 at 02:29; Status DC Bupivacaine HCl (Marcaine Pf 0.5% Inj) 30 ml STK-MED ONCE .ROUTE ; Start at 15:39; Stop 05/03/17 at 15:40; Status DC Bacitracin (Baciguent Oint) 15 applic STK-MED ONCE .ROUTE ; Start 05/03/17 at 15 :39; Stop 05/03/17 at 15:40; Status DC Lidocaine HCl (Xylocaine 1% Inj (50 ml)) 50 ml STK-MED ONCE .ROUTE ; Start 05/03 at 15:40; Stop 05/03/17 at 15:41; Status DC Bupivacaine HCl (Marcaine Pf 0.25% Inj) 30 ml STK-MED ONCE .ROUTE Last administered on 05/03/17 19:29; Start 05/03/17 at 18:22; Stop 05/03/17 at 18:23 ; Status DC Fentanyl Citrate (fentaNYL INJ) 100 mcg STK-MED ONCE .ROUTE ; Start 05/03/17 at 20:00; Stop 05/03/17 at 20:01; Status DC Miscellaneous Information ALL NURSING DEPARTME... UNSCH PRN .XX SEE LABEL COMMENTS; Start 05/03/17 at 21:00; Stop 05/04/17 at 20:59; Status DC Insulin Detemir (Levemir Inj) 48 units DAILY SQ Last administered on 05/07/17t 09:00; Start 05/05/17 at 09:00 A/P Assessment and Plan A/P 1. Sepsis due to right foot infection/ possible osteomyelitis tumor localization with 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 s/p Right 5th digit and 5th metatarsal resection and Left foot ulcer debridement, sharp/excisional- f/u the pathology and culture. continue IV antibiotics and pain control- wound culture with MSSA and proteus. arterial doppler unremarkable. d/w - will consult ID. 2. acute kidney injury- improved- will monitor. 3. DM: Hgb A1c 9.2- . Hold Metformin for now in light of renal insufficiency and sepsis. continue levemir and will continue Sliding scale w/ Accu-Checks. will monitor and adjust the insulin regimen as needed. 4. DVT Prophylaxis: Heparin sq Discharge Planning awaiting podiatry follow-up and recommendations. dc home when cleared by podiatry. Teja Cleveland MD May 07, 2017 09:25
--- NOTE | 2017-05-07 10:37 | PD.POD ---
Subjective Pain score: 2 Remarks Right foot doing well Past Med/Surg/Social History Social History Smoking Status: Current Every Day Smoker Objective Vital Signs Vital Signs Date Time Temp Pulse Resp B/P Pulse Ox O2 Delivery O2 Flow Rate FiO2 05/07/17 00:00 96.6 60 16 125/81 98 05/06/17 21:50 18 05/06/17 20:00 96.6 64 16 130/82 96 05/06/17 19:30 Room Air 05/06/17 16:00 97.2 62 15 156/84 99 05/06/17 12:00 96.0 78 14 109/73 97 Coded Allergies: No Known Allergies (Unverified , 04/29/17) Medications and IVs Administered Medications Medications (Trade) Dose Ordered Sig/Adams Route PRN Reason Start Time Stop Time Status Last Admin Dose Admin Cefepime HCl 1000 mg/Sodium Chloride 100 ml @ 200 mls/hr Q12H IV 04/30/17 09:00 05/07/17 09:07 Sodium Chloride (NS 1000 ml Inj) 1,000 ml @ 60 mls/hr [id number] IV 04/29/17 19:48 05/07/17 01:01 Sodium Chloride (NS Flush) 2 ml BID IV FLUSH 04/29/17 21:00 05/07/17 09:00 Ondansetron HCl (Zofran Inj) 4 mg Q6H PRN IVP NAUSEA OR VOMITING 04/29/17 20:00 04/29/17 22:44 Acetaminophen (Tylenol) 650 mg Q6H PRN PO FEVER/PAIN SCALE 1 TO 2 04/29/17 20:00 05/06/17 10:13 Acetaminophen/ Hydrocodone Bitart ([place] 5-325 Mg) 1 tab Q4H PRN PO PAIN SCALE 3 TO 5 04/29/17 20:00 05/07/17 06:32 Morphine Sulfate (Morphine Inj) 2 mg Q3H PRN IV Pain 6-10 04/29/17 20:00 04/30/17 14:40 Senna/Docusate Sodium (Inessa-Colace) 1 tab BID PO 04/29/17 21:00 05/05/17 10:27 Aspirin (Ecotrin Ec) 81 mg DAILY PO 04/30/17 09:00 05/07/17 09:06 Fluoxetine HCl (PROzac) 40 mg DAILY PO 04/30/17 09:00 05/07/17 09:06 Pravastatin Sodium (Pravachol) 40 mg DAILY PO 04/30/17 09:00 05/07/17 09:06 Multivitamins (Theragran) 1 tab DAILY PO 04/30/17 09:00 05/07/17 09:06 Heparin Sodium (Porcine) (Heparin Inj) 5,000 units Q12HR SQ 04/30/17 09:00 05/07/17 09:06 Pantoprazole Sodium (Protonix) 40 mg DAILY PO 04/30/17 14:00 05/07/17 09:06 Calcium Carbonate (Tums Chew) 500 mg Q12HR PRN CHEW DYSPEPSIA 04/30/17 14:00 04/30/17 14:37 Gabapentin 600 mg 600 mg TID PO 04/30/17 18:00 05/07/17 09:06 Vancomycin HCl/ Sodium Chloride (Vancomycin Inj/ NS 500 ml Inj) 517 ml @ 257.5 mls/ hr Q12H IV 05/03/17 02:00 05/07/17 01:00 Insulin Detemir (Levemir Inj) 48 units DAILY SQ 05/05/17 09:00 05/07/17 09:00 Other Results Laboratory Tests Test 05/06/17 05:15 Creatinine 0.80 MG/DL Estimat Glomerular Filtration 104 ML/MIN Rate Bone Swab from surgery is growing staph and proteus? Physical Exam Remarks Right foot 5th ray resection with suture intact, deep plantar ulcer with no SOI , no swelling or redness above the ankle, toes 1-4 pink. Left foot without infection pre ulcer lesion noted- uncomplicated. Assessment & Plan A/P Right foot ulcer OM 5th digit and metatarsal. Left foot DFU neuropathic ulcer/pre ulcer. SP right 5th digit and 5th Ray Amp 05/03 Doing well, reviewed labs/ Surgery cx (Staph) and bone path. Margins are clear for OM, prefer 2 weeks IV ABX minimum due to + bone swab, awaiting ID consult. Continue nonWB. Fu 1-2 days, reviewed case with Willi Foster DPM May 07, 2017 10:37
[2017-05-07 12:00] VITALS: BP 142/83; PULSE 63; RESP 14; TEMP 97.3; O2SAT 100
[2017-05-07] MEDS ORDERED: CEFT2INJ IV (12:50)
[2017-05-07] MEDS ORDERED: EPIN1INJ21 IV PUSH (12:50)
[2017-05-07] MEDS ORDERED: EPIN1INJ21 SQ (12:50)
[2017-05-07] MEDS ORDERED: SOLU250I IV PUSH (12:50)
--- NOTE | 2017-05-07 12:51 | PD.ID.CON ---
History of Present Illness Service ID Consult Requested By and Reason for Consult Evaluation and Mment of Acute osteomyelitis MSSA and Proteus. Primary Care Physician Non-Staff Diagnoses: History of Present Illness is a 46 y/o CM with a PMH of HTN, Peripheral Neuropathy, DM and h/o Right Foot Osteomyelitis. Patient reports he has been treated 5 times with IV antibiotics using a PICC line in last 1.5 yrs. He has been seen by ID and Podiatry at hospitals in [place]. He reports he has now moved to [facility]. He was referred to the ER by PCP for further eval of right foot infection. Per patient, he developed lesion on dorsum of right foot in Dec 2016 and was diagnosed w/ Osteomyelitis in [place], s/p treatment w/ antibiotics and moved to [facility] shortly afterwards. Two months ago, developed new lesion to lateral aspect of right foot. Did not seek medical attention as he had no PCP until 2 days ago at which time was seen by Dr. Valle. Per patient, right foot swelling/erythema new since yesterday. Reports subjective fever/chills today. On arrival, BP 130/84, HR 126, O2 sat 97% on RA, Temp 100.7. WBC 15.7. Creatinine 1.36, no previous labs for comparison. BS 417. Lactic Acid 2.8. UA negative. CXR with no acute findings. Foot X-ray with postsurgical changes , possible osteomyelitis involving distal third and fourth metatarsals. LE Doppler w/ no DVT. S/p Blood Cultures, Vanc/Zosyn in ER. Patient reports wearing ill fitting shoes and development of blister at the area of the 5th metatarsal. He denies any night sweats or fever/chills. ID consulted for evaluation and Mment of acute osteomyelitis (MSSA and Proteus) . Podiatry on case as well. Review of Systems Constitutional: DENIES: Diaphoretic episodes, Fatigue, Fever, Weight gain, Weight loss, Chills, Dizziness, Change in appetite, Night Sweats Endocrine: DENIES: Heat/cold intolerance, Polydipsia, Polyuria, Polyphagia Eyes: DENIES: Blurred vision, Diplopia, Eye inflammation, Eye pain, Vision loss , Photosensitivity, Double Vision Ears, nose, mouth, throat: DENIES: Tinnitus, Hearing loss, Vertigo, Nasal discharge, Oral lesions, Throat pain, Hoarseness, Ear Pain, Running Nose, Epistaxis, Sinus Pain, Toothache, Odynophagia Respiratory: DENIES: Apneas, Cough, Snoring, Wheezing, Hemoptysis, Sputum production, Shortness of breath Cardiovascular: DENIES: Chest pain, Palpitations, Syncope, Dyspnea on Exertion , PND, Lower Extremity Edema, Orthopnea, Claudication Gastrointestinal: DENIES: Abdominal pain, Black stools, Bloody stools, Constipation, Diarrhea, Nausea, Vomiting, Difficulty Swallowing, Anorexia Genitourinary: DENIES: Sexual dysfunction, Urinary frequency, Urinary incontinence, Urgency, Hematuria, Dysuria, Nocturia, Penile Discharge, Testicular Pain, Testicular Swelling Musculoskeletal: COMPLAINS OF: Joint pain, Joint Swelling, DENIES: Muscle aches, Stiffness, Back pain, Neck pain Integumentary: DENIES: Abnormal pigmentation, Nail changes, Pruritus, Rash Hematologic/lymphatic: DENIES: Bruising, Lymphadenopathy Immunologic/allergic: DENIES: Eczema, Urticaria Neurologic: COMPLAINS OF: Paresthesias, DENIES: Abnormal gait, Headache, Localized weakness, Seizures, Speech Problems, Tremor, Poor Balance Psychiatric: DENIES: Anxiety, Confusion, Mood changes, Depression, Hallucinations, Agitation, Suicidal Ideation, Homicidal Ideation, Delusions Except as stated in HPI: all other systems reviewed are Neg Past Family Social History Allergies: Coded Allergies: No Known Allergies (Unverified , 04/29/17) Past Medical History HTN, Peripheral Neuropathy, DM and h/o Recurrent Right Foot Osteomyelitis x 5 in past. Past Surgical History Multiple I&Ds of foot abscesses and bone biopsies of right foot x 5 over last 1.5 yrs. Cardiac Cath Reported Medications Reported Meds & Active Scripts Active Reported Oxycodone (Oxycodone HCl) 10 Mg Tab 10 Mg PO Q6H PRN Multi Vitamin Daily (Multiple Vitamin) 1 Tab Tab 1 Tab PO DAILY Fish Oil 1000 mg (Rescue-3 Fatty Acids) 1 Cap Cap 1,000 Mg PO DAILY Gabapentin 300 Mg Cap 600 Mg PO 2-3 TIMES A DAY Fluoxetine (Fluoxetine HCl) 40 Mg Cap 40 Cap PO DAILY Metoprolol Tartrate 25 Mg Tab 25 Mg PO BID Pravastatin 40 Mg Tab 40 Mg PO DAILY Lisinopril 2.5 Mg Tab 2.5 Mg PO DAILY Apidra Inj (Insulin Glulisine Inj) 1,000 Unit/10 Ml Vial 10 Units SQ DIRECTED SLIDING SCALE Lantus Inj (Insulin Glargine) 100 Unit/Ml Inj 45 Units SQ DAILY Metformin (Metformin HCl) 1,000 Mg Tab 1,000 Mg PO BID With meals Aspirin Adult Low Strength (Aspirin) 81 Mg Tabdr 81 Mg PO DAILY Active Ordered Medications Current Medications Medications (Trade) Dose Ordered Sig/Adams Route Start Time Stop Time Status Last Admin (D50w (Vial) Inj) 50 ml UNSCH PRN IV 04/29/17 20:00 Glucagon 1 mg 1 mg UNSCH PRN OTHER 04/29/17 20:00 Pharmacy Profile Note 0 ml @ 0 mls/hr UNSCH OTHER 04/29/17 20:00 Cefepime HCl 1000 mg/Sodium Chloride 100 ml @ 200 mls/hr Q12H IV 04/30/17 09:00 05/07/17 09:07 (NS 1000 ml Inj) 1,000 ml @ 60 mls/hr [id number] IV 04/29/17 19:48 05/07/17 01:01 (NS Flush) 2 ml UNSCH PRN IV FLUSH 04/29/17 20:00 (NS Flush) 2 ml BID IV FLUSH 04/29/17 21:00 05/07/17 09:00 (Zofran Inj) 4 mg Q6H PRN IVP 04/29/17 20:00 04/29/17 22:44 (Tylenol) 650 mg Q6H PRN PO 04/29/17 20:00 05/06/17 10:13 ([place] 5-325 Mg) 1 tab Q4H PRN PO 04/29/17 20:00 05/07/17 06:32 (Morphine Inj) 2 mg Q3H PRN IV 04/29/17 20:00 04/30/17 14:40 (Inessa-Colace) 1 tab BID PO 04/29/17 21:00 05/05/17 10:27 (Milk Of Magnesia Liq) 30 ml Q12H PRN PO 04/29/17 20:00 (Senokot) 17.2 mg Q12H PRN PO 04/29/17 20:00 (Dulcolax Supp) 10 mg DAILY PRN RECTAL 04/29/17 20:00 (Lactulose Liq) 30 ml DAILY PRN PO 04/29/17 20:00 (Ecotrin Ec) 81 mg DAILY PO 04/30/17 09:00 05/07/17 09:06 (PROzac) 40 mg DAILY PO 04/30/17 09:00 05/07/17 09:06 (Pravachol) 40 mg DAILY PO 04/30/17 09:00 05/07/17 09:06 (Theragran) 1 tab DAILY PO 04/30/17 09:00 05/07/17 09:06 (Heparin Inj) 5,000 units Q12HR SQ 04/30/17 09:00 05/07/17 09:06 (Protonix) 40 mg DAILY PO 04/30/17 14:00 05/07/17 09:06 (Tums Chew) 500 mg Q12HR PRN CHEW 04/30/17 14:00 04/30/17 14:37 Gabapentin 600 mg 600 mg TID PO 04/30/17 18:00 05/07/17 12:30 (Vancomycin Inj/ NS 500 ml Inj) 517 ml @ 257.5 mls/ hr Q12H IV 05/03/17 02:00 05/07/17 01:00 (Levemir Inj) 48 units DAILY SQ 05/05/17 09:00 05/07/17 09:00 Miscellaneous Information SPECIFIC LAB TO BE ADA... ONCE ONCE .XX 05/08/17 13:45 05/08/17 13:46 Family History Reviewed, positive for DM. Social History Negative for alcohol, tobacco or drugs. Physical Exam Vital Signs Vital Signs Date Time Temp Pulse Resp B/P Pulse Ox O2 Delivery O2 Flow Rate FiO2 05/07/17 08:00 97.7 65 15 140/82 99 05/07/17 00:00 96.6 60 16 125/81 98 05/06/17 21:50 18 05/06/17 20:00 96.6 64 16 130/82 96 05/06/17 19:30 Room Air 05/06/17 16:00 97.2 62 15 156/84 99 Physical Exam GENERAL: This is a well-nourished, well-developed patient, in no apparent distress. SKIN: No rashes, ecchymoses or lesions. Cool and dry. HEAD: Atraumatic. Normocephalic. No temporal or scalp tenderness. EYES: Pupils equal round and reactive. Extraocular motions intact. No scleral icterus. No injection or drainage. ENT: Nose without bleeding, purulent drainage or septal hematoma. Throat without erythema, tonsillar hypertrophy or exudate. Uvula midline. Airway patent. NECK: Trachea midline. No JVD or lymphadenopathy. Supple, nontender, no meningeal signs. CARDIOVASCULAR: Regular rate and rhythm without murmurs, gallops, or rubs. RESPIRATORY: Clear to auscultation. Breath sounds equal bilaterally. No wheezes , rales, or rhonchi. GASTROINTESTINAL: Abdomen soft, non-tender, nondistended. No hepato-splenomegaly , or palpable masses. No guarding. MUSCULOSKELETAL: Rt foot in post op dressing NEUROLOGICAL: Awake and alert. Cranial nerves II through XII intact. Motor and sensory grossly within normal limits. Five out of 5 muscle strength in all muscle groups. Normal speech. Psych: cooperative IV line sites with no e/o infection. Laboratory Date/Time Procedure Status Source Growth 05/03/17 20:46 Gram Stain - Final Complete Wound Foot 05/03/17 20:46 Wound Culture - Final Complete Staphylococcus Aureus Proteus Mirabilis 05/03/17 20:46 Fungal Smear - Final Resulted Wound Foot NO FUNGAL ELEMENTS SEEN. 05/03/17 20:46 Fungal Culture Resulted Wound Foot Pending 05/03/17 20:46 Acid Fast Stain - Final Resulted Wound Foot NO ACID FAST BACILLI SEEN 05/03/17 20:46 Mycobacterial Culture Resulted Wound Foot Pending Result Diagram: 05/05/17 0532 05/06/17 0515 Imaging Last Impressions Tumor Localization 05/01/17 0000 Signed Impressions: Service Date/Time: Monday, May 01, 2017 11:45 - CONCLUSION: 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 Yong Bowling MD Lower Extremity Ultrasound 04/29/171612 Signed Impressions: Service Date/Time: Saturday, April 29, 2017 18:11 - CONCLUSION: 1. No DVT. 2. Right groin adenopathy. Jerod Velasquez Jr., MD Foot X-Ray 04/29/171612 Signed Impressions: Service Date/Time: Saturday, April 29, 2017 17:00 - CONCLUSION: 1. Post surgical changes with possible osteomyelitis involving the distal third and fourth metatarsals. [place] MD Chest X-Ray 04/29/17 1613 Signed Impressions: Service Date/Time: Saturday, April 29, 2017 17:07 - CONCLUSION: 1. No acute cardiopulmonary disease. Ramiro Dan MD Assessment and Plan Assessment and Plan Sepsis present on admission (fever, elevated WBC and source: foot osteomyelitis) . MSSA and Proteus infection s.p resection of 5th metatarsal (pathology : acute osteomyelitis) DM2 uncontrolled DM neuropathy Prior h/o recurrent MSSA osteomyelitis s/p 5 IV antibiotic courses of 6 weeks each using PICC. At high risk for Cdiff based on above history. Counseled patient. Recs: DC Cefepime IV DC Vanco IV Start Ceftriaxone IV (stop date Jun) PICC line consult, vascular team called for pending DC. Aleks.w RN D.w Case Management\ D.w pt and spouse need for [place] follow up with in 2 weeks. Recommend residential oral suppression with oral antibiotics in view of recurrent MSSA foot infection/osteomyelitis. TBD by on follow up. d/w : plan as above and DC anticipated in am after Ceftriaxone tolerated and insurance approval and home health arrangements made. Will sign off please call back if any change in clinical condition or questions or issues. Jessica Hamilton MD May 07, 2017 12:51
--- NOTE | 2017-05-07 12:55 | HHI.FF ---
cc: Kylee Menchaca MD Infusion Therapy Location of Infusion Therapy: [facility] IV Infusion Order Patient Information Appointment Date: May 08, 2017 Patient Weight 100 kg Diagnosis: Diagnosis MSSA and Proteus acute Osteomyelitis of foot. Coded Allergies: No Known Allergies (Unverified , 04/29/17) Administer Medication Ceftriaxone 2 grams IV q 24 hours Start Treatment: May 08, 2017 Stop Treatment: Jun 20, 2017 Additional Information Venous access: PICC Line Additional Instructions [x] Peripheral flush and dressing changes per protocol [x] Implanted port and central line prep cook: * Implanted port: 10 ml Normal Saline followed by 5 ml Heparin 100 units/ml Heparin flush after each use and monthly to maintain. [] May leave port accessed during therapy. [] May leave peripheral site accessed for duration of therapy. [x] If patient has SOB or respiratory distress, check oxygen saturation. If less than 90% or clinical signs of respiratory distress, administer oxygen at 2 L/min. via nasal cannula and notify physician. [x] Anaphylaxis/Reaction orders: * Stop infusion. * Keep IV line open with saline flush. * Notify physician. * Monitor vital signs every 15 minutes until symptoms resolve. * Check Oxygen saturation; Oxygen at 2 L/min. via nasal cannula if less than 90% or clinical signs of respiratory distress. * Administer diphenhydramine (Benadryl) 25 mg IV STAT, (unless patient has received as pre-med). May repeat once, if necessary. * Solu-Cortef 250 mg IVP over 30-60 seconds, use 100 mg vials for each dissolution. * Epinephrine (1mg/1 ml) 0.3 mg subcutaneously or IVP now with any signs of respiratory distress. * Check with physician for new additional pre-med orders if patient is re- challenged or re-treated. [x] May remove PICC line when treatment complete, after confirming with Physician. [x] If the patient is admitted to the hospital, the ED, or transferred via [facility] , complete transfer form including medication reconciliation order sheet. Laboratory Tests Weekly Labs: CBC w/diff, Creatinine, CRP, LFT's (Hepatic function test) Additional Information Please draw labs every Tuesday, fax labs to numbers below and call with abnormals , change in clinical condition or problems to: Dr.Reba Menchaca AND Dr.Tanuja Hamilton or covering ID Physician Follow up appt: Patient to schedule follow up appt with Dr.Reba Menchaca within 2 weeks post discharge. Follow up with PCP Follow up with other MDs as planned. Counseling: Counseled about medication side effects Counseled about PICC line care and hand hygiene. Counseled about CDiff and importance of early testing. Jessica Hamilton MD May 07, 2017 12:55
--- NOTE | 2017-05-07 13:06 | HHI.FF ---
Face to Face Verification Diagnosis: (1) Osteomyelitis Physical Therapy Order: Evaluate and Treat Home Health Nursing Order: Medical education Signs/symptoms of disease process Diabetic education Medication education-adverse effect IV medication administration I have seen patient Ryley Martinez on 05/07/17. My clinical findings support the need for the requested home health care services because: Ltd mobility - disease progression I certify that my clinical findings support that this patient is homebound because: Unsteady gait/balance Teja [place] MD May 07, 2017 13:06
[2017-05-07] MEDS: cefTRIAXone INJ 2,000 MG in SODIUM CHLORIDE 0.9% INJ 100 ML IV SCH (13:29)
[2017-05-07 15:30] LABS: PROTHROMBIN TIME - PATIENT 11.2 SEC (9.8-11.6)
[2017-05-07 16:00] VITALS: BP 146/86; PULSE 64; RESP 16; TEMP 96.7; O2SAT 98
[2017-05-07] MEDS ORDERED: SODIUM CHLORIDE 0.9% FLUSH 10 ML FLUSH IV FLUSH PRN (18:00)
--- NOTE | 2017-05-07 18:03 | RADRPT ---
EXAM DATE/TIME: 05/07/2017 17:37 [facility] COMPARISON: No previous studies available for comparison. INDICATIONS : PICC line placement. MEDICAL HISTORY : Cardiovascular disease. SURGICAL HISTORY : CABG. ENCOUNTER: Initial ACUITY: 1 day PAIN SCORE: 6/10 LOCATION: Bilateral chest FINDINGS: A single view of the chest demonstrates the lungs to be symmetrically aerated without evidence of mas s, infiltrate or effusion. Mild elevation left hemidiaphragm. Previous median sternotomy. PICC line in superior vena cava. The cardiomediastinal contours are unremarkable. Osseous structure s are intact. CONCLUSION: 1. PICC line tip in superior vena cava. No pneumothorax. Russell Zuniga MD on May 07, 2017 at 17:59 Board Certified Radiologist. This report was verified electronically.
[2017-05-07 20:00] VITALS: BP 123/79; PULSE 97; RESP 19; TEMP 97.4; O2SAT 96
[2017-05-08] VITALS: BP 127/70; PULSE 69; RESP 19; TEMP 96.1; O2SAT 96
[2017-05-08] MEDS: INSULIN ASPART SUPPLEMENTAL SCALE SQ SCH ×2 (05:35→12:31)
[2017-05-08 08:00] VITALS: BP 134/82; PULSE 67; RESP 15; TEMP 96.6; O2SAT 100
[2017-05-08] MEDS: DOCUSATE SODIUM 50 MG/SENNA 8.6 MG TAB PO SCH (09:00)
[2017-05-08] MEDS: SODIUM CHLORIDE 0.9% FLUSH 10 ML FLUSH IV FLUSH SCH (09:00)
[2017-05-08] MEDS ORDERED: SODIUM CHLORIDE 0.9% FLUSH 10 ML FLUSH IV FLUSH SCH (09:00)
[2017-05-08] MEDS: PRAVASTATIN SOD 40 MG TAB PO SCH (09:08)
[2017-05-08] MEDS: FLUoxetine HCL 20 MG CAP PO SCH (09:08)
[2017-05-08] MEDS: HEPARIN SODIUM - SQ 10,000 UNITS/ML VIAL SQ SCH (09:08)
[2017-05-08] MEDS: GABAPENTIN 300 MG CAP PO SCH ×2 (09:08→12:28)
[2017-05-08] MEDS: PANTOPRAZOLE SOD 40 MG DELAYED RELEASE TAB PO SCH (09:08)
[2017-05-08] MEDS: MULTIVITAMIN TAB PO SCH (09:08)
[2017-05-08] MEDS: ASPIRIN EC 81 MG TABEC PO SCH (09:08)
[2017-05-08] MEDS: INSULIN DETEMIR 100 UNITS/ML VIAL SQ SCH (09:11)
--- NOTE | 2017-05-08 09:13 | HHI.PR ---
Subjective Remarks resting comfortably with no distress. pain is controlled. no fever. no new complaints. Objective Vitals Vital Signs Date Time Temp Pulse Resp B/P Pulse Ox O2 Delivery O2 Flow Rate FiO2 05/08/17 00:00 96.1 69 19 127/70 96 05/07/17 20:00 97.4 97 19 123/79 96 05/07/17 16:00 96.7 64 16 146/86 98 05/07/17 12:00 97.3 63 14 142/83 100 I/O 05/07/17 05/07/17 05/07/17 05/08/17 05/08/17 05/08/17 07:00 15:00 23:00 07:00 15:00 23:00 Intake Total 1645 ml 1400 ml 1276 ml 684 ml Output Total 250 ml 525 ml 1100 ml 600 ml Balance 1395 ml 875 ml 176 ml 84 ml Intake Oral 240 ml 840 ml 240 ml 240 ml IV Total 1405 ml 560 ml 1036 ml 444 ml Output Urine Total 250 ml 525 ml 1100 ml 600 ml # Breastfeedings 7 # Bowel Movements 0 0 Result Diagram: 05/05/17 0532 05/08/17 0545 Imaging Last Impressions Chest X-Ray 05/07/17 0000 Signed Impressions: Service Date/Time: Sunday, May 07, 2017 17:37 - CONCLUSION: 1. PICC line tip in superior vena cava. No pneumothorax. Russell Zuniga MD Tumor Localization 05/01/17 0000 Signed Impressions: Service Date/Time: Monday, May 01, 2017 11:45 - CONCLUSION: 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 Yong Bowling MD Lower Extremity Ultrasound 04/29/171612 Signed Impressions: Service Date/Time: Saturday, April 29, 2017 18:11 - CONCLUSION: 1. No DVT. 2. Right groin adenopathy. Jerod Velasquez Jr., MD Foot X-Ray 04/29/171612 Signed Impressions: Service Date/Time: Saturday, April 29, 2017 17:00 - CONCLUSION: 1. Post surgical changes with possible osteomyelitis involving the distal third and fourth metatarsals. [place] MD Objective Remarks GENERAL: This is a well-nourished, well-developed patient, in no apparent distress. CARDIOVASCULAR: Regular rate and regular rhythm without murmurs, gallops, or rubs. RESPIRATORY: Clear to auscultation. Breath sounds equal bilaterally. No wheezes , rales, or rhonchi. GASTROINTESTINAL: Abdomen soft, non-tender, nondistended. Normal, active bowel sounds MUSCULOSKELETAL: right foot covered with clean dressing. NEURO: Alert & Oriented x4 to person, place, time, situation. Moves all ext x4 Procedures Right 5th digit and 5th metatarsal resection and Left foot ulcer debridement, sharp/excisional PICC line insertion Medications and IVs Current Medications Sodium Chloride (NS 1000 ml Inj) 1,000 ml @ 999 mls/hr BOLUS ONCE IV Last administered on 04/29/17 18:51; Start 04/29/17 at 18:15; Stop 04/29/17 at 19:15 ; Status DC Insulin Human NPH 10 units 10 units ONCE ONCE SQ Last administered on 18:50; Start 04/29/17 at 18:30; Stop 04/29/17 at 18:31; Status DC Vancomycin HCl 1000 mg/Sodium Chloride 250 ml @ 250 mls/hr ONCE ONCE IV Last administered on 04/29/17 20:32; Start 04/29/17 at 19:00; Stop 04/29/17 at 19:59 ; Status DC Piperacillin Sod/ Tazobactam Sod (Zosyn 3.375 Gm Premix) 50 ml @ 100 mls/hr ONCE ONCE IV Last administered on 04/29/17 19:59; Start 04/29/17 at 19:00; Stop 04/29/17 at 19:29; Status DC Dextrose (D50w (Vial) Inj) 50 ml UNSCH PRN IV HYPOGLYCEMIA-SEE COMMENTS; Start 04/29/17 at 20:00 Glucagon (Glucagon Inj) 1 mg UNSCH PRN OTHER HYPOGLYCEMIA-SEE COMMENTS; Start 04/29/17 at 20:00 Insulin Aspart 1 1 ACHS SLIDING SCALE SQ Last administered on 05/08/17 05:35; Start 04/29/17 at 21:00 Pharmacy Profile Note 0 ml @ 0 mls/hr UNSCH OTHER ; Start 04/29/17 at 20:00; Stop 05/07/17 at 12:57; Status DC Cefepime HCl 1000 mg/Sodium Chloride 100 ml @ 200 mls/hr Q12H IV Last administered on 05/07/17 09:07; Start 04/30/17 at 09:00; Stop 05/07/17 at 12:57; Status DC Sodium Chloride (NS 1000 ml Inj) 1,000 ml @ 60 mls/hr [id number] IV Last administered on 05/07/17 17:54; Start 04/29/17 at 19:48 Sodium Chloride (NS Flush) 2 ml UNSCH PRN IV FLUSH FLUSH AFTER USING IV ACCESS ; Start 04/29/17 at 20:00 Sodium Chloride (NS Flush) 2 ml BID IV FLUSH Last administered on 05/07/17 09: 00; Start 04/29/17 at 21:00 Ondansetron HCl (Zofran Inj) 4 mg Q6H PRN IVP NAUSEA OR VOMITING Last administered on 04/29/17 22:44; Start 04/29/17 at 20:00 Acetaminophen (Tylenol) 650 mg Q6H PRN PO FEVER/PAIN SCALE 1 TO 2 Last administered on 05/06/17 10:13; Start 04/29/17 at 20:00 Acetaminophen/ Hydrocodone Bitart ([place] 5-325 Mg) 1 tab Q4H PRN PO PAIN SCALE 3 TO 5 Last administered on 05/07/17 22:10; Start 04/29/17 at 20:00 Morphine Sulfate (Morphine Inj) 2 mg Q3H PRN IV Pain 6-10 Last administered on 04/30/17 14:40; Start 04/29/17 at 20:00 Senna/Docusate Sodium (Inessa-Colace) 1 tab BID PO Last administered on 10:27; Start 04/29/17 at 21:00 Magnesium Hydroxide (Milk Of Magnesia Liq) 30 ml Q12H PRN PO MILD - MODERATE CONSTIPATION; Start 04/29/17 at 20:00 Sennosides (Senokot) 17.2 mg Q12H PRN PO MODERATE - SEVERE CONSTIPATION; Start 04/29/17 at 20:00 Bisacodyl (Dulcolax Supp) 10 mg DAILY PRN RECTAL SEVERE CONSITIPATION; Start at 20:00 Lactulose (Lactulose Liq) 30 ml DAILY PRN PO SEVERE CONSITIPATION; Start at 20:00 Aspirin (Ecotrin Ec) 81 mg DAILY PO Last administered on 05/07/17 09:06; Start 04/30/17 at 09:00 Fluoxetine HCl (PROzac) 40 mg DAILY PO Last administered on 05/07/17 09:06; Start 04/30/17 at 09:00 Insulin Detemir (Levemir Inj) 45 units DAILY SQ Last administered on 05/04/17 08:44; Start 04/30/17 at 09:00; Stop 05/04/17 at 11:20; Status DC Pravastatin Sodium (Pravachol) 40 mg DAILY PO Last administered on 05/07/17 09: 06; Start 04/30/17 at 09:00 Multivitamins (Theragran) 1 tab DAILY PO Last administered on 05/07/17 09:06; Start 04/30/17 at 09:00 Heparin Sodium (Porcine) 5000 units 5,000 units Q12HR SQ Last administered on 22:09; Start 04/30/17 at 09:00 Vancomycin HCl 500 mg/Sodium Chloride 100 ml @ 200 mls/hr ONCE ONCE IV Last administered on 04/30/17 00:05; Start 04/29/17 at 23:00; Stop 04/29/17 at 23:29 ; Status DC Vancomycin HCl/ Sodium Chloride (Vancomycin Inj/ NS 500 ml Inj) 515 ml @ 257.5 mls/ hr Q8H IV Last administered on 05/02/17 13:22; Start 04/30/17 at 12:00; Stop 05/02/17 at 16:01; Status DC Miscellaneous Information SPECIFIC LAB TO BE DRAWN:VA... ONCE ONCE .XX Last administered on 05/01/17 11:45; Start 05/01/17 at 11:45; Stop 05/01/17 at 11:46 ; Status DC Pantoprazole Sodium (Protonix) 40 mg DAILY PO Last administered on 05/07/17 09: 06; Start 04/30/17 at 14:00 Calcium Carbonate (Tums Chew) 500 mg Q12HR PRN CHEW DYSPEPSIA Last administered on 04/30/17 14:37; Start 04/30/17 at 14:00 Gabapentin (Neurontin) 600 mg TID PO Last administered on 05/07/17 17:54; Start 04/30/17 at 18:00 Miscellaneous Information SPECIFIC LAB TO BE DRAWN:VANCOMYCIM TROUGH DATE TO... ONCE ONCE .XX ; Start 05/02/17 at 11:45; Stop 05/02/17 at 11:46; Status DC Vancomycin HCl/ Sodium Chloride (Vancomycin Inj/ NS 500 ml Inj) 517 ml @ 257.5 mls/ hr Q12H IV Last administered on 05/07/17 01:00; Start 05/03/17 at 02:00; Stop 05/07/17 at 12:57; Status DC Miscellaneous Information SPECIFIC LAB TO BE DRAWN:VANCOMY... ONCE ONCE .XX Last administered on 05/04/17 13:45; Start 05/04/17 at 13:45; Stop 05/04/17 at 13:46; Status DC Lactated Ringer's (Lr 1000 ml Inj) 1,000 ml @ 30 mls/hr Q24H PRN IV SEE LABEL COMMENTS; Start 05/03/17 at 02:30; Stop 05/06/17 at 02:29; Status DC Povidone Iodine (Betadine 5% Antisepsis Kit) 1 applic COPRA SAMPLER PRN EACH NARE SEE LABEL COMMENTS; Start 05/03/17 at 02:30; Stop 05/06/17 at 02:29; Status DC Chlorhexidine Gluconate (Chlorhexidine 2% Cloth) 3 pack COPRA SAMPLER PRN TOPICAL SEE LABEL COMMENTS; Start 05/03/17 at 02:30; Stop 05/06/17 at 02:29; Status DC Bupivacaine HCl (Marcaine Pf 0.5% Inj) 30 ml STK-MED ONCE .ROUTE ; Start at 15:39; Stop 05/03/17 at 15:40; Status DC Bacitracin (Baciguent Oint) 15 applic STK-MED ONCE .ROUTE ; Start 05/03/17 at 15 :39; Stop 05/03/17 at 15:40; Status DC Lidocaine HCl (Xylocaine 1% Inj (50 ml)) 50 ml STK-MED ONCE .ROUTE ; Start 05/03 at 15:40; Stop 05/03/17 at 15:41; Status DC Bupivacaine HCl (Marcaine Pf 0.25% Inj) 30 ml STK-MED ONCE .ROUTE Last administered on 05/03/17 19:29; Start 05/03/17 at 18:22; Stop 05/03/17 at 18:23 ; Status DC Fentanyl Citrate (fentaNYL INJ) 100 mcg STK-MED ONCE .ROUTE ; Start 05/03/17 at 20:00; Stop 05/03/17 at 20:01; Status DC Miscellaneous Information ALL NURSING DEPARTME... UNSCH PRN .XX SEE LABEL COMMENTS; Start 05/03/17 at 21:00; Stop 05/04/17 at 20:59; Status DC Insulin Detemir (Levemir Inj) 48 units DAILY SQ Last administered on 05/07/17 09:00; Start 05/05/17 at 09:00 Miscellaneous Information SPECIFIC LAB TO BE ... ONCE ONCE .XX ; Start at 13:45; Stop 05/08/17 at 13:45; Status DC Ceftriaxone Sodium/Sodium Chloride (Rocephin Inj/NS Inj) 100 ml @ 200 mls/hr Q24H IV Last administered on 05/07/17 13:29; Start 05/07/17 at 13:00 Sodium Chloride (NS Flush) See Protocol DAILY IV FLUSH ; Start 05/08/17 at 09:00 Sodium Chloride (NS Flush) See Protocol UNSCH PRN IV FLUSH SEE PROTOCOL TABLE; Start 05/07/17 at 18:00 Heparin Sodium (Porcine) (Heparin Central Flush) See Protocol DAILY IV FLUSH ; Start 05/08/17 at 09:00 Heparin Sodium (Porcine) (Heparin Central Flush) See Protocol UNSCH PRN IV FLUSH SEE PROTOCOL TABLE; Start 05/07/17 at 18:00 Sodium Chloride (NS Flush) UNSCH PRN IV FLUSH SEE PROTOCOL TABLE; Start at 18:00 A/P Assessment and Plan A/P 1. Sepsis due to right foot infection/ possible osteomyelitis tumor localization with 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 s/p Right 5th digit and 5th metatarsal resection and Left foot ulcer debridement, sharp/excisional- f/u the pathology and culture. wound culture with MSSA and proteus. arterial doppler unremarkable. ID consult appreciated; plan for IV Rocephin till - with f/u with . f/u with podiatry as outpatient; previously d/w . 2. acute kidney injury- improved- will monitor. 3. DM: Hgb A1c 9.2- . resume insulin/ metformin upon discharge.f/u as outpatient. Discharge Planning dc home when outpatient IV antibiotics/HHC has been arranged. f/u with pcp, ID and podiatry. see med list. d/w the patient. previously d/w and . time spent 35 min. Teja [place] MD May 08, 2017 09:13
--- NOTE | 2017-05-08 09:13 | HHI.DCPOC ---
Discharge Care Plan Diagnosis: (1) Acute osteomyelitis of ankle or foot Your Health Problems Are: Inflammation Swelling Goals to Promote Your Health * To prevent worsening of your condition and complications * To maintain your health at the optimal level Directions to Meet Your Goals Take your medications as prescribed Follow your dietary instruction Follow activity as directed Keep your appointments as scheduled Take your immunizations and boosters as scheduled If your symptoms worsen call your PCP, if no PCP go to Urgent Care Center or Emergency Room Smoking is Dangerous to Your Health. Avoid second hand smoke Call the 24-hour hour crisis hotline for domestic abuse at Teja Cleveland MD May 08, 2017 09:13
--- NOTE | 2017-05-08 09:14 | HHI.DS ---
Discharge Summary Admission Date Apr 29, 2017 at 19:38 Discharge Date: May 08, 2017 Admitting Diagnosis Sepsis/Osteomyelitis right foot (1) Sepsis ICD Code: A41.9 Diagnosis: Principal (2) Osteomyelitis ICD Code: M86.9 Diagnosis: Principal (3) HTN (hypertension) ICD Code: I10 Diagnosis: Secondary (4) Renal insufficiency ICD Code: N28.9 Diagnosis: Secondary (5) DM (diabetes mellitus) ICD Code: E11.9 Diagnosis: Secondary Procedures Right 5th digit and 5th metatarsal resection and Left foot ulcer debridement, sharp/excisional PICC line insertion Brief History - From Admission This is a 46-year-old male with a PMH of HTN, Peripheral Neuropathy, DM and h/o Right Foot Osteomyelitis who was referred to the ER by PCP for further eval of right foot infection. Per patient, he developed lesion on dorsum of right foot in Dec 2016 and was diagnosed w/ Osteomyelitis in [place], s/p treatment w/ antibiotics and moved to [facility] shortly afterwards. Two months ago, developed new lesion to lateral aspect of right foot. Did not seek medical attention as he had no PCP until 2 days ago at which time was seen by Dr. Valle. Per patient, right foot swelling/erythema new since yesterday. Reports subjective fever/chills today. On arrival, BP 130/84, HR 126, O2 sat 97 % on RA, Temp 100.7. WBC 15.7. Creatinine 1.36, no previous labs for comparison. BS 417. Lactic Acid 2.8. UA negative. CXR with no acute findings. Foot X-ray with postsurgical changes, possible osteomyelitis involving distal third and fourth metatarsals. LE Doppler w/ no DVT. S/p Blood Cultures, Vanc/Zosyn in ER. CBC/BMP: 05/05/17 0532 05/08/17 0545 Imaging Last Impressions Chest X-Ray 05/07/17 0000 Signed Impressions: Service Date/Time: Sunday, May 07, 2017 17:37 - CONCLUSION: 1. PICC line tip in superior vena cava. No pneumothorax. Russell Zuniga MD Tumor Localization 05/01/17 0000 Signed Impressions: Service Date/Time: Monday, May 01, 2017 11:45 - CONCLUSION: 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 Yong Bowling MD Lower Extremity Ultrasound 04/29/173 Signed Impressions: Service Date/Time: Saturday, April 29, 2017 18:11 - CONCLUSION: 1. No DVT. 2. Right groin adenopathy. Jerod Velasquez Jr., MD Foot X-Ray 04/29/171612 Signed Impressions: Service Date/Time: Saturday, April 29, 2017 17:00 - CONCLUSION: 1. Post surgical changes with possible osteomyelitis involving the distal third and fourth metatarsals. [place] MD PE at Discharge GENERAL: This is a well-nourished, well-developed patient, in no apparent distress. CARDIOVASCULAR: Regular rate and regular rhythm without murmurs, gallops, or rubs. RESPIRATORY: Clear to auscultation. Breath sounds equal bilaterally. No wheezes , rales, or rhonchi. GASTROINTESTINAL: Abdomen soft, non-tender, nondistended. Normal, active bowel sounds MUSCULOSKELETAL: right foot covered with clean dressing. NEURO: Alert & Oriented x4 to person, place, time, situation. Moves all ext x4 Hospital Course 1. Sepsis due to right foot infection/ possible osteomyelitis tumor localization with 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 s/p Right 5th digit and 5th metatarsal resection and Left foot ulcer debridement, sharp/excisional- f/u the pathology and culture. wound culture with MSSA and proteus. arterial doppler unremarkable. ID consult appreciated; plan for IV Rocephin till - with f/u with . f/u with podiatry as outpatient; previously d/w . 2. acute kidney injury- improved- will monitor. 3. DM: Hgb A1c 9.2- . resume insulin/ metformin upon discharge.f/u as outpatient. Pt Condition on Discharge: Good Discharge Disposition: Disch w/ Home Health Serv Discharge Time: > 30 minutes Discharge Instructions DIET: Follow Instructions for: Heart Healthy Diet, Diabetic Diet Activities you can perform: Non Weight Bearing Follow up Referrals: Infectious Disease - 05/21/17 @ [facility] with MD Dr.Reba Nikolai Stroud PCP Follow-up Podiatry New Medications: Ceftriaxone Inj (Ceftriaxone Inj) 2 Gm Inj 2 GM IV Q24H Osteomyelitis Days 42 Ref 0 VIAL Epinephrine Inj (Epinephrine Inj) 1 Mg/Ml Inj 0.3 MG IV PUSH ONCE PRN ALLERGIC REACTION #1 VIAL Epinephrine Inj (Epinephrine Inj) 1 Mg/Ml Inj 0.3 MG SQ ONCE Give with any signs of respiratory distress. PRN ALLERGIC REACTION #1 VIAL Hydrocortisone Inj (Solu-Cortef Inj) 250 Mg Inj 250 MG IV PUSH ONCE Give over 30-60 seconds. PRN ALLERGIC REACTION #1 Ref 0 VIAL Continued Medications: Aspirin DR (Aspirin Adult Low Strength) 81 Mg Tabdr 81 MG PO DAILY TAB Fluoxetine (Fluoxetine) 40 Mg Cap 40 CAP PO DAILY #30 Ref 0 CAP Gabapentin (Gabapentin) 300 Mg Cap 600 MG PO 2-3 TIMES A DAY #60 Ref 0 CAP Insulin Glargine Inj (Lantus Inj) 100 Unit/Ml Inj 45 UNITS SQ DAILY Insulin Glulisine Inj (Apidra Inj) 1,000 Unit/10 Ml Vial 10 UNITS SQ DIRECTED SLIDING SCALE Blood Sugar Management Ref 0 VIAL Lisinopril (Lisinopril) 2.5 Mg Tab 2.5 MG PO DAILY #30 Ref 0 TAB Metformin (Metformin) 1,000 Mg Tab 1000 MG PO BID With meals Blood Sugar Management #60 Ref 0 TAB Metoprolol Tartrate (Metoprolol Tartrate) 25 Mg Tab 25 MG PO BID #60 Ref 0 TAB Multiple Vitamin (Multi Vitamin Daily) 1 Tab Tab 1 TAB PO DAILY [place]-3 Fatty Acids (Fish Oil 1000 mg) 1 Cap Cap 1000 MG PO DAILY Oxycodone (Oxycodone) 10 Mg Tab 10 MG PO Q6H PRN PAIN Ref 0 TAB Pravastatin (Pravastatin) 40 Mg Tab 40 MG PO DAILY Cholesterol Management #30 Ref 0 TAB Teja [place] MD May 08, 2017 09:14
[2017-05-08] MEDS: ACETAMINOPHEN/HYDROcodone 325 MG/5 MG TAB PO PRN (09:23)
[2017-05-08 12:00] VITALS: BP 106/65; PULSE 77; RESP 16; TEMP 99; O2SAT 98
[2017-05-08] MEDS: SODIUM CHLOR 0.9% 1000 ML INJ 1,000 ML IV SCH (12:00)
[2017-05-08] MEDS: cefTRIAXone INJ 2,000 MG in SODIUM CHLORIDE 0.9% INJ 100 ML IV SCH (12:28)
--- NOTE | 2017-05-08 13:20 | PD.POD ---
Subjective Pain score: 2 Remarks Right foot doing well Past Med/Surg/Social History Social History Smoking Status: Current Every Day Smoker Objective Vital Signs Vital Signs Date Time Temp Pulse Resp B/P Pulse Ox O2 Delivery O2 Flow Rate FiO2 05/08/17 08:00 96.6 67 15 134/82 100 05/08/17 00:00 96.1 69 19 127/70 96 05/07/17 20:00 97.4 97 19 123/79 96 05/07/17 16:00 96.7 64 16 146/86 98 Coded Allergies: No Known Allergies (Unverified , 04/29/17) Objective Remarks Right foot 5th ray resection with suture intact, deep plantar ulcer with no SOI , no swelling or redness above the ankle, toes 1-4 pink. Left foot without infection pre ulcer lesion noted- uncomplicated. Assessment & Plan A/P Right foot ulcer OM 5th digit and metatarsal. Left foot DFU neuropathic ulcer/pre ulcer. SP right 5th digit and 5th Ray Amp 05/03 Doing well, Appreciate ID, FU out pt, bandage changed every other day pre HH. Willi Drummond DPM May 08, 2017 13:20
[2017-05-08] MEDS ORDERED: PHARMACY ORDERED LAB ONE (13:45)
== END 2017-05-08 14:45 | disposition home health service (06) | DRG 854 ==
LOC: NEPC 15:43 → NEDA 19:38 → N07B 21:24
PROVIDERS: ADMIT Internal Medicine; ATTEND Internal Medicine
PROC: 0QTP0ZZ Resection of Left Metatarsal, Open Approach (ICD-10-PCS; principal; 2017-05-03 18:46)
PROC: 0JBR0ZZ Excision of Left Foot Subcutaneous Tissue and Fascia, Open Approach (ICD-10-PCS; 2017-05-03 18:46)
PROC: 02HV33Z Insertion of Infusion Device into Superior Vena Cava, Percutaneous Approach (ICD-10-PCS; 2017-05-07)
DX: A41.01 Sepsis due to Methicillin susceptible Staphylococcus aureus (principal); M86.179 Other acute osteomyelitis, unspecified ankle and foot; N17.9 Acute kidney failure, unspecified; E11.42 Type 2 diabetes mellitus with diabetic polyneuropathy; L03.115 Cellulitis of right lower limb; E11.621 Type 2 diabetes mellitus with foot ulcer; A41.59 Other Gram-negative sepsis; E11.69 Type 2 diabetes mellitus with other specified complication; L97.529 Non-pressure chronic ulcer of other part of left foot with unspecified severity; L97.519 Non-pressure chronic ulcer of other part of right foot with unspecified severity; I10 Essential (primary) hypertension; I25.2 Old myocardial infarction; I25.10 Atherosclerotic heart disease of native coronary artery without angina pectoris; E78.5 Hyperlipidemia, unspecified; E11.65 Type 2 diabetes mellitus with hyperglycemia; K21.9 Gastro-esophageal reflux disease without esophagitis; F17.200 Nicotine dependence, unspecified, uncomplicated; Z79.4 Long term (current) use of insulin; Z95.1 Presence of aortocoronary bypass graft
CPT/HCPCS: 36569; 71010; 73630; 76937; 78807; 78999; 80053; 80202; 81001; 82565; 82948; 83036; 83605; 85025; 85610; 86403; 87015; 87040; 87070; 87077; 87102; 87116; 87186; 87205; 87206; 88304; 88305; 88311; 93005; 93923; 93971; 96372; A9569; J0692; J0696; J1642; J1644; J1815; J2270; J2405; J2543; J3010; J3370; J7030; J7040; J7050; L2114